=== PATIENT | male | born 1965 | race Caucasian/White ===

== ENCOUNTER → 2017-08-07 | Outpatient (CLI) | payer BC ==
--- NOTE | 2017-08-07 10:52 | XR ---
EXAMINATION TYPE: XR lumbar spine with bend/flex DATE OF EXAM: 08/07/2017 CLINICAL HISTORY: Chronic radicular pain and low back per order. Low back pain for 2 weeks per juan pabloen t. TECHNIQUE: Frontal, lateral, and oblique images of the lumbar spine are obtained. COMPARISON: None FINDINGS: There are 5 lumbar type vertebral bodies identified. The lumbar spine shows grade 1 retro listhesis of L4-L5. There are suspected pars defects L5 level. There is no acute fracture or dislocat ion. There is mild disc space narrowing L4-L5 and L5-S1 levels. Vertebral body heights are maintained . The oblique images appear within normal limits. Facet arthropathy lower lumbar levels is seen. Va scular calcification overlying abdominal aorta is noted. Dynamic flexion and extension views show no increased subluxation, some improved alignment is noted L4-L5 level on extension images. No worsening disc space narrowing is seen. IMPRESSION: As above. Consider CT/MRI follow-up.
== END | disposition home or self-care (01) ==
LOC: RADXRMAIN 09:46
PROVIDERS: ATTEND Internal Medicine Hospice and Palliative Medicine
DX: M48.07 Spinal stenosis, lumbosacral region (principal); M43.16 Spondylolisthesis, lumbar region; M46.96 Unspecified inflammatory spondylopathy, lumbar region
CPT/HCPCS: 72114

== ENCOUNTER → 2018-06-10 | Outpatient (CLI) | payer BC ==
--- NOTE | 2018-06-10 15:12 | US ---
EXAMINATION TYPE: US abdomen limited DATE OF EXAM: 06/10/2018 COMPARISON: NONE CLINICAL HISTORY: 52-year-old male R10.11 Right up quadrant pain. Patient states picking up something heavy at work then later having RUQ pain. TECHNIQUE: Multiple sonographic images of the right upper quadrant are obtained. FINDINGS: EXAM MEASUREMENTS: Liver Length: 17.0 cm Gallbladder Wall: 0.1 cm Right Kidney: 10.7 x 6.0 x 5.2 cm Coppersmith Helper notes:Limited exam due to overlying bowel gas Pancreas: Echogenic in appearance, tail not well visualized due to bowel gas. Liver: Somewhat hypoechoic in appearance. Gallbladder: Mobile echogenic focus seen - 1.0 x 0.9 cm Evidence for sonographic Roman's sign: neg CBD: Obscured by overlying bowel gas Right Kidney: No hydronephrosis IMPRESSION: 1. Hypoechoic appearance to the liver could be on a technical basis given patient limitations. A hypo echoic liver can also be seen in the setting of parenchymal edema such as with hepatitis. Clinically correlate. 2. Cholelithiasis with a 1 cm gallstone. 3. The bile duct is obscured and not assessed.
== END ==
LOC: RADUSWWP 14:24
PROVIDERS: ATTEND Family Medicine
DX: K80.20 Calculus of gallbladder without cholecystitis without obstruction (principal); R93.2 Abnormal findings on diagnostic imaging of liver and biliary tract
CPT/HCPCS: 76705

== ENCOUNTER → 2018-07-18 | Outpatient (CLI) | payer BC ==
--- NOTE | 2018-07-18 15:20 | CT ---
EXAMINATION TYPE: CT abdomen w con DATE OF EXAM: 07/18/2018 COMPARISON: None HISTORY: RUQ pain CT DLP: 1297 mGycm CONTRAST: CT scan of the abdomen is performed with Oral Contrast and with IV Contrast, patient injected with 1 00 mL of Isovue 300. FINDINGS: LUNG BASES-: No visible nodule. No infiltrate. LIVER/GB: Calcified gallstone noted. No space occupying hepatic lesion. Biliary tree is of normal caliber. PANCREAS: No inflammation. No distinct mass. SPLEEN: No splenic enlargement. No lesion seen. ADRENALS: No nodule. No thickening. KIDNEYS/BLADDER: No hydronephrosis. No nephrolithiasis. No distinct renal mass. Urinary bladder g rossly unremarkable. BOWEL: Normal appendix. Normal bowel caliber. No inflammation. LYMPH NODES: No greater than 1cm abdominal or pelvic lymph nodes are appreciated. AORTA: No significant abnormality. OSSEOUS STRUCTURES: No significant abnormality is seen. OTHER: No significant additional abnormality is seen. IMPRESSION: 1. Uncomplicated cholelithiasis.
== END | disposition home or self-care (01) ==
LOC: RADCTMAIN 14:24
PROVIDERS: ATTEND Internal Medicine Hospice and Palliative Medicine
DX: K80.20 Calculus of gallbladder without cholecystitis without obstruction (principal); M62.830 Muscle spasm of back; R93.2 Abnormal findings on diagnostic imaging of liver and biliary tract
CPT/HCPCS: 74160; Q9967

== ENCOUNTER → 2022-05-04 | Outpatient (CLI) | payer BC ==
--- NOTE | 2022-05-04 11:04 | XR ---
EXAMINATION TYPE: XR chest 2V DATE OF EXAM: 05/04/2022 COMPARISON: 03/20/2015 INDICATION: Cough and sinus drainage TECHNIQUE: Frontal and lateral views of the chest are obtained. FINDINGS: The heart size is normal. The pulmonary vasculature is normal. The lungs are clear. IMPRESSION: 1. No acute pulmonary process.
== END | disposition home or self-care (01) ==
LOC: RADXRMAIN 09:55
PROVIDERS: ATTEND Family Medicine
DX: R05.8 Other specified cough (principal)
CPT/HCPCS: 71046

== ENCOUNTER → 2022-12-07 | Outpatient (CLI) | payer BC ==
--- NOTE | 2022-12-07 10:42 | CT ---
EXAMINATION TYPE: CT brain wo con DATE OF EXAM: 12/07/2022 COMPARISON: None HISTORY: abn gait CT DLP: 1150.[address] of the brain was performed. The ventricles, basal cisterns and sulci overlying the cerebral convexities demonstrate mild enlargem ent. There is no evidence for intracranial hemorrhage or sulcal effacement. There is decreased attenuation about the periventricular white matter and deep white matter of both c erebral hemispheres, compatible with chronic small vessel ischemia. Differential diagnosis does inclu de demyelination. No mass effects are seen.No midline shift. Osseous calvarium is intact. If symptoms persist consider MRI. IMPRESSION: 1. Age related atrophic and chronic small vessel ischemic change without acute intracranial process s een at this time.
== END | disposition home or self-care (01) ==
LOC: RADCTMAIN 08:01
PROVIDERS: ATTEND Family Medicine
DX: G31.1 Senile degeneration of brain, not elsewhere classified (principal); I67.82 Cerebral ischemia; R26.9 Unspecified abnormalities of gait and mobility
CPT/HCPCS: 70450

== ENCOUNTER → 2023-07-17 | Outpatient (CLI) | payer BC ==
--- NOTE | 2023-07-17 14:16 | CT ---
EXAMINATION TYPE: CT brain wo con CT DLP: 1071.5 mGycm, Automated exposure control for dose reduction was used. DATE OF EXAM: 07/17/2023 2:08 PM COMPARISON: CT brain 03/18/2023. CLINICAL INDICATION:Male, 58 years old with history of R55 SYNCOPE, syncope, dizziness, weakness TECHNIQUE: Brain: Axial CT images of the brain were obtained with coronal and sagittal reformats created and rev iewed. Contrast used: None. Oral contrast used: None. FINDINGS: Brain: Extra-axial spaces: No abnormal extra-axial fluid collections. Ventricular system: Within normal limits Cerebral parenchyma: Cerebral atrophy, slightly more pronounced on the left. No acute intraparenchyma l hemorrhage or mass effect. The harrington-white junction is well differentiated. Scattered hypoattenuati ng areas are seen within the white matter. Cerebellum: Unremarkable. Mass effect: No evidence of midline shift. Intracranial vasculature: unremarkable Soft tissues: Normal. Calvarium/osseous structures: No depressed skull fracture. Paranasal sinuses and mastoid air cells: Mild scattered paranasal sinus disease. Visualized orbits: Bilateral aphakia IMPRESSION: 1. No acute intracranial process. 2. Nonspecific white matter changes, likely secondary to chronic small vessel ischemic disease.
== END | disposition home or self-care (01) ==
LOC: RADCTMAIN 13:28
PROVIDERS: ATTEND Family Medicine
DX: G93.89 Other specified disorders of brain (principal); S09.90XA Unspecified injury of head, initial encounter; R55 Syncope and collapse; R53.1 Weakness; X58.XXXA Exposure to other specified factors, initial encounter
CPT/HCPCS: 70450

== ENCOUNTER 2023-07-18 10:58 | Inpatient (IN) | payer BC ==
--- NOTE | 2023-07-18 11:48 | ED ---
General Adult HPI - General Stated complaint: dizzy Time Seen by Provider: 07/18/23 11:05 Source: patient Mode of arrival: wheelchair Limitations: no limitations - History of Present Illness Initial comments: Dictation was produced using [employer] dictation software. please excuse any grammatical, word or spelling errors. Chief Complaint: 58-year-old male presents to the ER for presyncope History of Present Illness: Patient is a 58-year-old male he has been worked up by his neurologist for dizziness and presyncope. He had a scheduled tilt table test with Dr. Ovalle today. He arrived for his appointment however became symptomatic and was told that he should come to the emergency department. They did not perform the tilt table test. Patient states that his symptoms seem like they are worse whenever he stands up. He has never seen cardiology for the symptoms. At this point there has not been any clear cause of what is causing patient's dizziness and presyncope. The ROS documented in this emergency department record has been reviewed and confirmed by me. Those systems with pertinent positive or negative responses have been documented in the HPI. All other systems are other negative and/or noncontributory. - Related Data Home Medications Medication Instructions Recorded Confirmed Acetaminophen [Tylenol] 325 mg PO Q4-6H PRN 07/17/23 07/17/23 Albuterol Inhaler [Ventolin Hfa 90 mcg INHALATION Q4H PRN 07/17/23 07/17/23 Inhaler] Escitalopram [Lexapro] 20 mg PO QAM 07/17/23 07/17/23 Lisinopril-Hctz 10-12.5 mg 1 tab PO QAM 07/17/23 07/17/23 [Zestoretic 10-12.5] Meloxicam [Mobic] 15 mg PO QAM 07/17/23 07/17/23 Metoprolol Succinate [Toprol XL] 50 mg PO QAM 07/17/23 07/17/23 Omeprazole 40 mg PO QAM 07/17/23 07/17/23 busPIRone HCL 10 mg PO QAM 07/17/23 07/17/23 Allergies Allergy/AdvReac Type Severity Reaction Status Date / Time bacitracin Allergy Rapid Verified 07/18/23 11:02 [From Neosporin Heart Rate ([id number])] neomycin Allergy Rapid Verified 07/18/23 11:02 [From Neosporin Heart Rate ([id number])] polymyxin B Allergy Rapid Verified 07/18/23 11:02 [From Neosporin Heart Rate ([id number])] Sulfa (Sulfonamide Allergy Unknown Verified 07/18/23 11:02 Antibiotics) venom-honey bee Allergy Unknown Verified 07/18/23 11:02 [bee venom (honey bee)] Review of Systems ROS Statement: Those systems with pertinent positive or pertinent negative responses have been documented in the HPI. ROS Other: All systems not noted in ROS Statement are negative. Past Medical History Past Medical History: Eye Disorder, Hearing Disorder / Deafness, Hypertension, Memory Impairment Additional Past Medical History / Comment(s): wake up gasping for air History of Any Multi-Drug Resistant Organisms: None Reported Past Surgical History: Orthopedic Surgery Additional Past Surgical History / Comment(s): sinus Past Anesthesia/Blood Transfusion Reactions: No Reported Reaction Past Psychological History: Anxiety Smoking Status: Current every day smoker Past Alcohol Use History: None Reported - Past Family History Mother Family Medical History: No Reported History Father Family Medical History: AFIB, AICD/Pacemaker, Coronary Artery Disease (CAD), CVA/TIA General Exam - General Exam Comments Initial Comments: PHYSICAL EXAM: General Impression: Alert and oriented x3, not in acute distress HEENT: Normocephalic atraumatic, extra-ocular movements intact, pupils equal and reactive to light bilaterally, mucous membranes moist. Cardiovascular: Heart regular rate and rhythm Chest: Able to complete full sentences, no retractions, no tachypnea Abdomen: abdomen soft, non-tender, non-distended, no organomegaly Musculoskeletal: Pulses present and equal in all extremities, no peripheral edema Motor: no focal deficits noted Neurological: CN II-XII grossly intact, no focal motor or sensory deficits noted Skin: Intact with no visualized rashes Psych: Normal affect and mood Limitations: no limitations Course Vital Signs 07/18/23 07/18/23 07/18/23 10:59 11:19 12:02 Temperature 97.8 F 97.1 F L Pulse Rate 82 77 97 Pulse Rate [ Flying Ii Instructor ] Respiratory 20 18 14 Rate Blood Pressure 107/73 120/75 112/77 Blood Pressure [Left Arm Sitting] Blood Pressure [Left Arm Standing] Blood Pressure [Left Arm Supine] O2 Sat by Pulse 98 97 97 Oximetry 07/18/23 07/18/23 07/18/23 12:25 12:26 12:27 Temperature Pulse Rate Pulse Rate [ 78 83 92 Flying Ii Instructor ] Respiratory Rate Blood Pressure Blood Pressure 99/78 [Left Arm Sitting] Blood Pressure 108/76 [Left Arm Standing] Blood Pressure 123/94 [Left Arm Supine] O2 Sat by Pulse 95 98 96 Oximetry 07/18/23 13:10 Temperature Pulse Rate 74 Pulse Rate [ Flying Ii Instructor ] Respiratory 16 Rate Blood Pressure 126/79 Blood Pressure [Left Arm Sitting] Blood Pressure [Left Arm Standing] Blood Pressure [Left Arm Supine] O2 Sat by Pulse 96 Oximetry EKG Findings - EKG Comments: EKG Findings:: My EKG interpretation: Ventricular rate 78, normal sinus rhythm,. 150, QRS 100, QTc 513. No OH prolongation, no ST or T-wave changes noted. Overall this EKG positive for prolonged QT Medical Decision Making - Medical Decision Making Was pt. sent in by a medical professional or institution (, PA, REVERBERATORY FURNACE SUPERVISOR, urgent care, hospital, or correction...) When possible be specific @ -No Did you speak to anyone other than the patient for history (EMS, parent, family, police, friend...)? What history was obtained from this source @ - at the bedside as described above Did you review nursing and triage notes (agree or disagree)? Why? @ -I reviewed and agree with nursing and triage notes Were old charts reviewed (outside hosp., previous admission, EMS record, old EKG, old radiological studies, urgent care reports/EKG's, correction records)? Report findings @ -No old charts were reviewed Differential Diagnosis (chest pain, altered mental status, abdominal pain women, abdominal pain men, vaginal bleeding, musculoskeletal, weakness, fever, dyspnea, syncope, headache, dizziness, GI bleed, back pain, seizure, CVA, palpatations, mental health)? @ -Differential Syncope: Valvular disease, hypertrophic cardiomyopathy, pulmonary embolism, tamponade, tachycardia, bradycardia, NV, hypovolemia, hemorrhage, dissection, anemia, intracranial hemorrhage, seizure, hypoglycemia, carbon monoxide poisoning, this is not meant to be an all-inclusive list. EKG interpreted by me (3pts min.). @ -See above X-rays interpreted by me (1pt min.). @ -Chest x-ray is nonacute CT interpreted by me (1pt min.). @ -None done U/S interpreted by me (1pt. min.). @ -None done What testing was considered but not performed or refused? (CT, X-rays, U/S, labs)? Why? @ -None What meds were considered but not given or refused? Why? @ -None Did you discuss the management of the patient with other professionals (professionals i.e. , PA, REVERBERATORY FURNACE SUPERVISOR, lab, RT, psych nurse, social work specialist, bolt header, teacher, chief operating officer, pillowcase cleaner)? Give summary @ -Case discussed with hospitalist for admission Was smoking cessation discussed for >3mins.? @ -No Was critical care preformed (if so, how long)? @ -No Were there social determinants of health that impacted care today? How? (Homelessness, low income, unemployed, alcoholism, drug addiction, transportation, low edu. Level, literacy, decrease access to med. care, group home, rehab)? @ -No Was there de-escalation of care discussed even if they declined (Discuss DNR or withdrawal of care, Hospice)? DNR status @ -No What co-morbidities impacted this encounter? (DM, HTN, Smoking, COPD, CAD, Cancer, CVA, ARF, Chemo, Hep., AIDS, mental health diagnosis, sleep apnea, morbid obesity)? @ -None Was patient admitted / discharged? Hospital course, mention meds given and route, prescriptions, significant lab abnormalities, going to OR and other pertinent info. @ -58-year-old male sent in from tilt table office for dizziness. Patient describes symptoms consistent with presyncope. Vital signs upon arrival are within acceptable limits. Orthostatic vital signs do show some positive findings. Laboratory evaluation obtained. CBC is unremarkable. Metabolic p hai shows sodium 123. Acute kidney injury with a creatinine of 2.28 and BUN of 52. Troponin 0.043. Patient has elevated troponin however does not have any ACS type symptoms. There is concern that perhaps maybe his presyncope or syncope is cardiac related. Patient may have a cardiology consult. Undiagnosed new problem with uncertain prognosis? @ -No Drug Therapy requiring intensive monitoring for toxicity (Heparin, Nitro, Insulin, Cardizem)? @ -No Were any procedures done? @ -No Diagnosis/symptom? Acute, or Chronic, or Acute on Chronic? Uncomplicated (without systemic symptoms) or Complicated (systemic symptoms)? @ -Presyncope, hyponatremia Side effects of treatment? @ -No Exacerbation, Progression, or Severe Exacerbation? @ -No Poses a threat to life or bodily function? How? (Chest pain, USA, NV, pneumonia, PE, COPD, DKA, ARF, appy, cholecystitis, CVA, Diverticulitis, Homicidal, Suicidal, threat to staff... and all critical care pts) @ -yes - Lab Data Result diagrams: 07/18/23 11:59 07/18/23 11:59 Lab Results 07/18/23 07/18/23 07/18/23 Range/Units 11:59 11:59 11:59 WBC 5.8 (3.8-10.6) k/uL RBC 3.85 L (4.30-5.90) m/uL Hgb 14.6 (13.0-17.5) gm/dL Hct 42.5 (39.0-53.0) % MCV 110.2 H (80.0-100.0) fL MCH 37.9 H (25.0-35.0) pg MCHC 34.4 (31.0-37.0) g/dL RDW 13.2 (11.5-15.5) % Plt Count 202 (150-450) k/uL MPV 8.2 Neutrophils % 75 % Lymphocytes % 9 % Monocytes % 12 % Eosinophils % 2 % Basophils % 0 % Neutrophils # 4.4 (1.3-7.7) k/uL Lymphocytes # 0.5 L (1.0-4.8) k/uL Monocytes # 0.7 (0-1.0) k/uL Eosinophils # 0.1 (0-0.7) k/uL Basophils # 0.0 (0-0.2) k/uL Manual Slide Review Performed Macrocytosis Marked A Stomatocytes Present PT 10.2 (10.0-12.5) sec INR 0.9 (<1.2) APTT 23.3 (22.0-30.0) sec Sodium 123 L (137-145) mmol/L Potassium 3.3 L (3.5-5.1) mmol/L Chloride 79 L (98-107) mmol/L Carbon Dioxide 32 H (22-30) mmol/L Anion Gap 12 mmol/L BUN 52 H (9-20) mg/dL Creatinine 2.28 H (0.66-1.25) mg/dL Est GFR (CKD-EPI)AfAm 36 (>60 ml/min/1.73 sqM) Est GFR (CKD-EPI)NonAf 31 (>60 ml/min/1.73 sqM) Glucose 193 H (74-99) mg/dL Plasma Lactic Acid Chuy (0.7-2.0) mmol/L Calcium 9.0 (8.4-10.2) mg/dL Magnesium 2.1 (1.6-2.3) mg/dL Total Bilirubin 1.2 (0.2-1.3) mg/dL AST 71 H (17-59) U/L ALT 46 (4-49) U/L Alkaline Phosphatase 101 (38-126) U/L Troponin I (0.000-0.034) ng/mL Total Protein 6.3 (6.3-8.2) g/dL Albumin 3.6 (3.5-5.0) g/dL 07/18/23 07/18/23 Range/Units 11:59 11:59 WBC (3.8-10.6) k/uL RBC (4.30-5.90) m/uL Hgb (13.0-17.5) gm/dL Hct (39.0-53.0) % MCV (80.0-100.0) fL MCH (25.0-35.0) pg MCHC (31.0-37.0) g/dL RDW (11.5-15.5) % Plt Count (150-450) k/uL MPV Neutrophils % % Lymphocytes % % Monocytes % % Eosinophils % % Basophils % % Neutrophils # (1.3-7.7) k/uL Lymphocytes # (1.0-4.8) k/uL Monocytes # (0-1.0) k/uL Eosinophils # (0-0.7) k/uL Basophils # (0-0.2) k/uL Manual Slide Review Macrocytosis Stomatocytes PT (10.0-12.5) sec INR (<1.2) APTT (22.0-30.0) sec Sodium (137-145) mmol/L Potassium (3.5-5.1) mmol/L Chloride (98-107) mmol/L Carbon Dioxide (22-30) mmol/L Anion Gap mmol/L BUN (9-20) mg/dL Creatinine (0.66-1.25) mg/dL Est GFR (CKD-EPI)AfAm (>60 ml/min/1.73 sqM) Est GFR (CKD-EPI)NonAf (>60 ml/min/1.73 sqM) Glucose (74-99) mg/dL Plasma Lactic Acid Chuy 1.2 (0.7-2.0) mmol/L Calcium (8.4-10.2) mg/dL Magnesium (1.6-2.3) mg/dL Total Bilirubin (0.2-1.3) mg/dL AST (17-59) U/L ALT (4-49) U/L Alkaline Phosphatase (38-126) U/L Troponin I 0.043 H* (0.000-0.034) ng/mL Total Protein (6.3-8.2) g/dL Albumin (3.5-5.0) g/dL Disposition Clinical Impression: Pre-syncope Disposition: ADMITTED IP TO THIS HOSP Condition: Fair Referrals: Fritz Mace DO [Primary Care Provider] - 1-2 days Decision Time: 13:50
[2023-07-18 12:14] LABS: Basophils % (A) 0 %; Eosinophils # (A) 0.1 k/uL (0-0.7); Eosinophils % (A) 2 %; HCT 42.5 % (39.0-53.0); HGB 14.6 gm/dL (13.0-17.5); Lymphocytes # (A) 0.5 k/uL (1.0-4.8); Lymphocytes % (A) 9 %; MCH 37.9 pg (25.0-35.0); MCHC 34.4 g/dL (31.0-37.0); MCV 110.2 fL (80.0-100.0); Macrocytosis Marked; Mean Platelet Volume 8.2; Monocytes # (A) 0.7 k/uL (0-1.0); Monocytes % (A) 12 %; Neutrophils # (A) 4.4 k/uL (1.3-7.7); Neutrophils % (A) 75 %; Platelet Count 202 k/uL (150-450); RBC 3.85 m/uL (4.30-5.90); RDW 13.2 % (11.5-15.5); WBC 5.8 k/uL (3.8-10.6)
[2023-07-18 12:22] LABS: INR 0.9 (<1.2); Partial Thromboplastin Time 23.3 sec (22.0-30.0); Prothrombin Time 10.2 sec (10.0-12.5)
[2023-07-18 12:36] LABS: ALT 46 U/L (4-49); AST 71 U/L (17-59); African American GFR (CKD) 36 (>60 ml/min/1.73 sqM); Albumin 3.6 g/dL (3.5-5.0); Alkaline Phosphatase 101 U/L (38-126); Anion Gap 12 mmol/L; Blood Urea Nitrogen 52 mg/dL (9-20); Carbon Dioxide 32 mmol/L (22-30); Chloride 79 mmol/L (98-107); Glucose 193 mg/dL (74-99); Magnesium 2.1 mg/dL (1.6-2.3); Non-African American GFR(CKD) 31 (>60 ml/min/1.73 sqM); Potassium 3.3 mmol/L (3.5-5.1); Sodium 123 mmol/L (137-145); Total Bilirubin 1.2 mg/dL (0.2-1.3); Total Protein 6.3 g/dL (6.3-8.2)
--- NOTE | 2023-07-18 12:55 | XR ---
EXAMINATION TYPE: XR chest 1V portable DATE OF EXAM: 07/18/2023 12:28 PM CLINICAL INDICATION:Male, 58 years old with history of presyncope; COMPARISON: Chest radiographs from 05/04/2022 TECHNIQUE: XR chest 1V portable Frontal view of the chest. FINDINGS: Lungs/Pleura: There is no evidence of pleural effusion, focal consolidation, or pneumothorax. Pulmonary vascularity: Unremarkable. Heart/mediastinum: Cardiomediastinal silhouette is unremarkable. Musculoskeletal: No acute osseous pathology. IMPRESSION: No acute cardiopulmonary disease/process.
[2023-07-18 13:04] LABS: Stomatocytes Present
[2023-07-18] MEDS ORDERED: NALOXONE 0.4 MG/ML 1 ML VIAL IV PRN (13:43)
[2023-07-18] MEDS: SODIUM CHLORIDE 0.9% 1,000 ML IV STA (14:59)
[2023-07-18] MEDS: SODIUM CHLORIDE 0.9% 1,000 ML IV SCH (14:59)
[2023-07-18] MEDS ORDERED: LORazepam 2 MG/ML INJ IV PRN (15:01)
--- NOTE | 2023-07-18 15:01 | P.HPIM ---
History of Present Illness H&P Date: 07/18/23 History of Presenting Illness: Patient is a very pleasant 58-year-old male with a past medical history of hypertension, COPD with continued nicotine dependence, and daily alcohol use drinking 1 pint of alcohol daily every day for at least the last 10 months. He presented to the emergency department secondary to severe dizziness. He was sent by Dr. Ovalle with [facility] after becoming severely dizzy during tilt table testing. He underwent full evaluation upon arrival to our facility. Vital signs upon arrival show blood pressure 107/73, heart rate 82, respiratory rate 20, temp 97.8 F, and SpO2 of 98% on room air. EKG was completed showing normal sinus rhythm at 77 bpm with prominent Q waves in leads II, aVF, V5 and V6. Which appears to be unchanged when compared to EKG completed 03/20/2015 upon personal review, comparison, and interpretation.. Chest x-ray completed negative for acute cardiopulmonary process. Labs completed and reviewed. CBC showing macrocytosis with MCV of 110.2 and MCH of 37.9. BMP showing acute hyponatremia with sodium of 123, hypokalemia with potassium of 3.3, and high anion gap metabolic alkalosis with hypochloremia with chloride of 79, hypercarbia with bicarb of 32 and anion gap of 12 as well as acute kidney injury with BUN of 52, creatinine 2.28, and GFR of 31. Blood glucose 193. Lactic acid was 1.2. Magnesium 2.1. Liver profile showing elevated AST of 71 otherwise normal findings. Troponin was elevated at 0.043. Patient is being admitted under our services with consultation to cardiology and nephrology. Patient continues to report persistent dizziness. He is currently lying supine and reports dizziness at rest and with any movement, dizziness with eyes closed or open. Patient states the room is just constantly spinning, and his hands are slightly tremulous and patient is holding onto stretcher. He denies having any changes in vision, hearing, tinnitus, headache, chest pain, palpitations, shortness of breath, nausea or vomiting, or experiencing any numbness/tingling/w eakness in his extremities. Review of systems: Pertinent positives and negatives as discussed in HPI, a complete review of systems was performed and all other systems are negative. Physical exam: Vital signs reviewed and stable. General: Nontoxic, no distress and appears stated age. Derm: Skin warm and dry, normal coloration for ethnicity. Head: Atraumatic, normocephalic and symmetric. Eyes: EOMs intact, no lid lag, and anicteric sclera. Pupils PERRLA Mouth: no lip lesions, mucus membranes moist Cardiovascular: regular rate and rhythm with normal S1S2, no murmur, positive posterior tibial pulses bilaterally, and cap refill < 2 seconds. Lungs: Respirations even, regular, and unlabored on room air. Lungs CTA bilaterally, no rhonchi, no rales, no wheezing, and no accessory muscle usage. Abdominal: soft, nontender to palpation, no guarding, no appreciable organomegaly Ext: ROM intact. No gross muscle atrophy, no edema, no contractures Neuro: Speech clear, face symmetrical and CN II-XII grossly intact with no noted focal neuro deficits. GCS 15. Slight resting tremors noted to bilateral hands. Psych: Alert and oriented to person, place, time, and situation. Appropriate and pleasant affect. Assessment and Plan of Care: Intractable dizziness Elevated troponin -Cardiology consulted, appreciate recommendations -Telemetry monitoring -Trend troponins -Cardiac diet -Order placed for aspirin 324 mg p.o. x 1 dose followed by 81 mg daily. -Patient to continue daily medication regimen with metoprolol succinate 50 mg daily. Lisinopril/hydrochlorothiazide held secondary to hyponatremia and ZAID. -Echocardiogram to be completed -Fall precautions in place. Hyponatremia High anion gap metabolic alkalosis Acute kidney injury -Hyponatremia likely due to dehydration with daily alcohol abuse in addition to current medications including thiazide diuretic and Lexapro. -Order placed for hyponatremia workup including TSH with free T4, serum osmolality, urine osmolality, random urine sodium, and uric acid. -Nephrology consulted. -Order placed for bladder scans to monitor for postvoid residual/retention and if greater than 400 cc nursing staff directed to place Fraser catheter. -Order placed for urinalysis -Patient to remain on telemetry monitoring with fall precautions and seizure precautions in place. -We will continue with gentle IV fluid hydration with 0.9% normal saline at 75 cc/h. -If no improvement in renal function with gentle IV fluid hydration, will need renal ultrasound. -Lisinopril/hydrochlorothiazide and Lexapro held. Alcohol withdraw in active alcoholic -Order placed for monitoring of CIWA scores and patient to be medicated with Ativan 0.5 mg every 4 hours as needed for CIWA score of 4-5, Ativan 1 mg every 4 hours for CIWA score of 6-7, Ativan 2 mg every 3 hours CIWA score of 8-9, and Ativan 2 mg every 2 hours forr CIWA score of 10 or greater. -Continuous gentle IV fluid hydration. -Thiamine 100 mg daily -Multivitamin daily -Folate 1 mg daily -Seizure, fall, and aspiration precautions in place. -Continued close monitoring of electrolytes and replace as needed. Hypokalemia Potassium was 3.3 order for K-Dur 40 mEq p.o. x 1 dose. We will continue to monitor with repeat morning labs and replace abnormal electrolyte values as indicated based upon these findings. Data and imaging reviewed: As stated above in HPI The patient is admitted with an anticipated greater than 2 midnight stay for evaluation of intractable dizziness, hyponatremia, acute kidney injury, and alcohol withdrawal CODE STATUS: Full code DVT prophylaxis: Heparin Anticipated discharge date: Clinical course to determine Anticipated discharge place: Clinical course to determine Patient was seen independently by Nurse Practitioner. This document was prepared using [employer] dictation software. Please allow for errors in bag shaker while rare they do occur. Rafi Arguello NP rendered care for this patient independently, reviewed the findings and plan as documented in the note above. I did not physically speak with or examine the patient on this date. Hyperglycemia - SSI, check A1C Past Medical History Past Medical History: Eye Disorder, Hearing Disorder / Deafness, Hypertension, Memory Impairment Additional Past Medical History / Comment(s): wake up gasping for air History of Any Multi-Drug Resistant Organisms: None Reported Past Surgical History: Orthopedic Surgery Additional Past Surgical History / Comment(s): sinus Past Anesthesia/Blood Transfusion Reactions: No Reported Reaction Past Psychological History: Anxiety Smoking Status: Current every day smoker Past Alcohol Use History: None Reported - Past Family History Mother Family Medical History: No Reported History Father Family Medical History: AFIB, AICD/Pacemaker, Coronary Artery Disease (CAD), CVA/TIA Medications and Allergies Home Medications Medication Instructions Recorded Confirmed Type Albuterol Inhaler [Ventolin Hfa 2 puff INHALATION RT-Q4H PRN 07/17/23 07/18/23 History Inhaler] Escitalopram [Lexapro] 20 mg PO DAILY 07/17/23 07/18/23 History Lisinopril-Hctz 10-12.5 mg 1 tab PO DAILY 07/17/23 07/18/23 History [Zestoretic 10-12.5] Meloxicam [Mobic] 15 mg PO DAILY 07/17/23 07/18/23 History Metoprolol Succinate [Toprol XL] 50 mg PO DAILY 07/17/23 07/18/23 History Omeprazole 40 mg PO DAILY 07/17/23 07/18/23 History busPIRone HCL 10 mg PO DAILY 07/17/23 07/18/23 History LORazepam [Ativan] 1 mg PO DIRECTED PRN 07/18/23 07/18/23 History traZODone HCL [Desyrel] 200 mg PO HS PRN 07/18/23 07/18/23 History Allergies Allergy/AdvReac Type Severity Reaction Status Date / Time bacitracin Allergy Rapid Verified 07/18/23 14:15 [From Neosporin Heart Rate ([id number])] neomycin Allergy Rapid Verified 07/18/23 14:15 [From Neosporin Heart Rate ([id number])] polymyxin B Allergy Rapid Verified 07/18/23 14:15 [From Neosporin Heart Rate ([id number])] Sulfa (Sulfonamide Allergy Anaphylaxis, Verified 07/18/23 14:15 Antibiotics) racing heart venom-honey bee Allergy Unknown Verified 07/18/23 14:15 [bee venom (honey bee)] Physical Exam Osteopathic Statement: *. No significant issues noted on an osteopathic structural exam other than those noted in the History and Physical/Consult. Vitals: Vital Signs Temp Pulse Pulse Resp BP BP BP 07/18/23 14:59 98.2 F 73 22 120/86 07/18/23 13:10 74 16 126/79 07/18/23 12:27 92 108/76 07/18/23 12:26 83 99/78 07/18/23 12:25 78 07/18/23 12:02 97 14 112/77 07/18/23 11:19 97.1 F L 77 18 120/75 07/18/23 10:59 97.8 F 82 20 107/73 BP Pulse Ox 07/18/23 14:59 95 07/18/23 13:10 96 07/18/23 12:27 96 07/18/23 12:26 98 07/18/23 12:25 123/94 95 07/18/23 12:02 97 07/18/23 11:19 97 07/18/23 10:59 98 Intake and Output 07/18/23 07/18/23 07/18/23 06:59 14:59 22:59 Other: Weight 107.955 kg Results CBC & Chem 7: 07/18/23 11:59 07/18/23 18:18 Labs: Abnormal Lab Results - Last 24 Hours (Table) 07/18/23 07/18/23 07/18/23 Range/Units 11:59 11:59 11:59 RBC 3.85 L (4.30-5.90) m/uL MCV 110.2 H (80.0-100.0) fL MCH 37.9 H (25.0-35.0) pg Lymphocytes # 0.5 L (1.0-4.8) k/uL Macrocytosis Marked A Sodium 123 L (137-145) mmol/L Potassium 3.3 L (3.5-5.1) mmol/L Chloride 79 L (98-107) mmol/L Carbon Dioxide 32 H (22-30) mmol/L BUN 52 H (9-20) mg/dL Creatinine 2.28 H (0.66-1.25) mg/dL Glucose 193 H (74-99) mg/dL AST 71 H (17-59) U/L Troponin I 0.043 H* (0.000-0.034) ng/mL
[2023-07-18] MEDS: HEPARIN SODIUM,PORCINE 5,000 UNIT/ML 1 ML VIAL SQ SCH (15:43)
[2023-07-18] MEDS: POTASSIUM CHLORIDE ER 20 MEQ TAB.ER PO STA ×2 (15:43→21:44)
[2023-07-18] MEDS: ASPIRIN 81 MG PO STA (16:43)
[2023-07-18] MEDS: THIAMINE 100 MG/ML 2 ML VIAL IM STA (16:43)
[2023-07-18] MEDS: NICOTINE 21MG/24HR PATCH TRANSDERM SCH (18:46)
[2023-07-18 19:13] LABS: African American GFR (CKD) 35 (>60 ml/min/1.73 sqM); Anion Gap 10 mmol/L; Blood Urea Nitrogen 50 mg/dL (9-20); Calcium 8.7 mg/dL (8.4-10.2); Carbon Dioxide 30 mmol/L (22-30); Chloride 81 mmol/L (98-107); Glucose 315 mg/dL (74-99); Non-African American GFR(CKD) 30 (>60 ml/min/1.73 sqM); Potassium 3.3 mmol/L (3.5-5.1); Sodium 121 mmol/L (137-145)
[2023-07-18] MEDS ORDERED: DEXTROSE 50% SYRINGE 50 ML IVP PRN ×2 (19:25)
[2023-07-18 21:31] LABS: Glucose,Whole Blood 232 mg/dL (70-110)
[2023-07-18] MEDS: INSULIN ASPART (NovoLOG) 100 UNIT/ML VIAL SQ SCH (21:44)
[2023-07-19 00:09] LABS: Amorphous Sediment,Urine Rare /hpf; Appearance,Urine Clear (Clear); Bacteria,Urine Rare /hpf; Bilirubin,Urine Negative (Negative); Blood,Urine Trace (Negative); Color,Urine Yellow; Glucose,Urine (UA) 3+ (Negative); Hyaline Casts,Urine 57 /lpf (0-2); Ketones,Urine Trace (Negative); Leukocyte Esterase,Urine Negative (Negative); Mucus,Urine Rare /hpf; Nitrite,Urine Negative (Negative); PH, Urine 5.5 (5.0-8.0); Protein,Urine 1+ (Negative); RBC,Urine <1 /hpf (0-5); Specific Gravity,Urine 1.017 (1.001-1.035); Squamous Epithelial Cell,Urine <1 /hpf (0-4); Urobilinogen,Urine <2.0 mg/dL (<2.0); WBC,Urine 1 /hpf (0-5)
[2023-07-19 02:55] LABS: African American GFR (CKD) 41 (>60 ml/min/1.73 sqM); Anion Gap 8 mmol/L; Blood Urea Nitrogen 50 mg/dL (9-20); Calcium 8.8 mg/dL (8.4-10.2); Carbon Dioxide 30 mmol/L (22-30); Chloride 86 mmol/L (98-107); Glucose 149 mg/dL (74-99); Non-African American GFR(CKD) 35 (>60 ml/min/1.73 sqM); Sodium 124 mmol/L (137-145)
[2023-07-19 06:06] LABS: Glucose,Whole Blood 193 mg/dL (70-110)
[2023-07-19] MEDS: PANTOPRAZOLE 40 MG TABLET PO SCH (06:43)
[2023-07-19] MEDS: METOPROLOL SUCCINATE (ER) 50 MG TAB.ER.24H PO SCH (08:29)
[2023-07-19] MEDS: MULTIVITAMINS, THERA 1 EACH TAB PO SCH (08:29)
[2023-07-19] MEDS: ASPIRIN 81 MG PO SCH (08:29)
[2023-07-19] MEDS: THIAMINE 100 MG TAB PO SCH (08:29)
[2023-07-19] MEDS: FOLIC ACID 1 MG TAB PO SCH (08:30)
[2023-07-19] MEDS: LORazepam 0.5 MG TAB PO PRN (08:40)
[2023-07-19] MEDS ORDERED: ESCITALOPRAM 20 MG TAB PO SCH (09:00)
[2023-07-19] MEDS ORDERED: ACETAMINOPHEN TAB 325 MG TAB PO PRN (09:20)
--- NOTE | 2023-07-19 09:53 | P.PN ---
Subjective Progress Note Date: 07/19/23 History of Presenting Illness: Patient is a very pleasant 58-year-old male with a past medical history of hypertension, COPD with continued nicotine dependence, and daily alcohol use drinking 1 pint of alcohol daily every day for at least the last 10 months. He presented to the emergency department secondary to severe dizziness. He was sent by Dr. Ovalle with [facility] after becoming severely dizzy during tilt table testing. He underwent full evaluation upon arrival to our facility. Vital signs upon arrival show blood pressure 107/73, heart rate 82, respiratory rate 20, temp 97.8 F, and SpO2 of 98% on room air. EKG was completed showing normal sinus rhythm at 77 bpm with prominent Q waves in leads II, aVF, V5 and V6. Which appears to be unchanged when compared to EKG completed 03/20/2015 upon personal review, comparison, and interpretation.. Chest x-ray completed negative for acute cardiopulmonary process. Labs completed and reviewed. CBC showing macrocytosis with MCV of 110.2 and MCH of 37.9. BMP showing acute hyponatremia with sodium of 123, hypokalemia with potassium of 3.3, and high anion gap metabolic alkalosis with hypochloremia with chloride of 79, hypercarbia with bicarb of 32 and anion gap of 12 as well as acute kidney injury with BUN of 52, creatinine 2.28, and GFR of 31. Blood glucose 193. Lactic acid was 1.2. Magnesium 2.1. Liver profile showing elevated AST of 71 otherwise normal findings. Troponin was elevated at 0.043. Patient is being admitted under our services with consultation to cardiology and nephrology. Physical exam: Patient was seen and fully evaluated at bedside this morning. Reports dizziness remains intermittently and with any movement but has shown some improvement since arrival yesterday. Patient also reports feeling quite shaky/tremulous from alcohol withdrawal. He continues to deny having a headache, changes in vision or hearing, chest pain or palpitations, or experiencing any numbness/tingling/weakness in his extremities. Patient does report mild lower back pain secondary to uncomfortable bed. Orders were placed for pain management including Tylenol 650 mg every 6 hours as needed for mild pain and Maiden 5/325 mg tablets every 4 hours as needed for moderate to severe pain. Vital signs reviewed and stable. General: Nontoxic, no distress and appears stated age. Derm: Skin warm and dry, normal coloration for ethnicity. Head: Atraumatic, normocephalic and symmetric. Eyes: EOMs intact, no lid lag, and anicteric sclera. Pupils PERRLA Mouth: no lip lesions, mucus membranes moist Cardiovascular: regular rate and rhythm with normal S1S2, no murmur, positive posterior tibial pulses bilaterally, and cap refill < 2 seconds. Lungs: Respirations even, regular, and unlabored on room air. Lungs CTA bilaterally, no rhonchi, no rales, no wheezing, and no accessory muscle usage. Abdominal: soft, nontender to palpation, no guarding, no appreciable organomegaly Ext: ROM intact. No gross muscle atrophy, no edema, no contractures Neuro: Speech clear, face symmetrical and CN II-XII grossly intact with no noted focal neuro deficits. GCS 15. Slight resting tremors noted to bilateral hands. Psych: Alert and oriented to person, place, time, and situation. Appropriate and pleasant affect. Assessment and Plan of Care: Intractable dizziness Elevated troponin -Cardiology consulted, appreciate recommendations -Telemetry monitoring -Troponins trended overnight resulting at 0.043, 0.033, and 0.035. -Cardiac diet -Continue 81 mg daily. -Patient to continue daily medication regimen with metoprolol succinate 50 mg daily. Lisinopril/hydrochlorothiazide held secondary to hyponatremia and ZAID. -Echocardiogram to be completed -Fall precautions in place. Hyponatremia, slowly improving with gentle IV fluid hydration High anion gap metabolic alkalosis, improving with IV fluid hydration Acute kidney injury, slowly improving with IV fluid hydration -Hyponatremia likely due to dehydration with daily alcohol abuse in addition to current medications including thiazide diuretic and Lexapro. -TSH normal findings at 2.440.serum osmolality was normal at 280. Urine osmolality, random urine sodium, and uric acid levels are still pending. -Nephrology following and discussed plan of care with Dr. Lombardi. -Strict I's and O's -Urinalysis positive for protein, glucose, ketones, and blood but negative for infection showing 1 WBC and less than 1 RBC.. Patient has had no episodes of noted urinary retention, and continues to report urinating without difficulties. -Patient to remain on telemetry monitoring with fall precautions and seizure precautions in place. -We will continue with gentle IV fluid hydration with 0.9% normal saline at 75 cc/h. -If no improvement in renal function with gentle IV fluid hydration, will need renal ultrasound. -Lisinopril/hydrochlorothiazide and Lexapro held. Alcohol withdraw in active alcoholic -Continue monitoring of CIWA scores and patient to be medicated with Ativan 0.5 mg every 4 hours as needed for CIWA score of 4-5, Ativan 1 mg every 4 hours for CIWA score of 6-7, Ativan 2 mg every 3 hours CIWA score of 8-9, and Ativan 2 mg every 2 hours forr CIWA score of 10 or greater. Current CIWA 4. -Continuous gentle IV fluid hydration. -Thiamine 100 mg daily -Multivitamin daily -Folate 1 mg daily -Continue seizure, fall, and aspiration precautions. -Continued close monitoring of electrolytes and replace as needed. Hypokalemia Most recent potassium was 3.0 at 2 AM and patient received an additional dose of K-Dur 40 mEq. Awaiting 6 AM labs to result. We will continue to monitor w ith repeat morning labs and replace abnormal electrolyte values as indicated based upon these findings. Nicotine dependence Recommend smoking cessation and continue with nicotine patch 21 mg daily. Data and imaging reviewed: Vital signs reviewed. Blood pressure 100/60, heart rate 92, respiratory rate 17, temp 98.1 F, and SpO2 of 93% on room air. Morning labs from 6 AM still pending. Sodium was monitored throughout the night with gentle IV fluid hydration and sodium slowly improving and currently 124 at 2 AM and renal function improving from creatinine of 2.31-2.03. Serum osmolality was 280. Troponins trended overnight resulting at 0.043, 0.033, and 0.035. TSH was normal findings at 2.440. Urinalysis positive for protein, glucose, ketones, and blood but negative for infection showing 1 WBC and less than 1 RBC.. CODE STATUS: Full code DVT prophylaxis: Heparin Anticipated discharge date: Clinical course to determine Anticipated discharge place: Clinical course to determine Patient was seen independently by Nurse Practitioner. This document was prepared using [employer] dictation software. Please allow for errors in [employer] while rare they do occur. Rafi Arguello NP rendered care for this patient independently, reviewed the findings and plan as documented in the note above. I did not physically speak with or examine the patient on this date. Objective - Vital Signs Vital signs: Vital Signs Temp 97.6 F 07/19/23 05:03 Pulse 94 07/19/23 05:03 Resp 20 07/19/23 05:03 BP 157/108 07/19/23 05:03 Pulse Ox 96 07/19/23 05:03 FiO2 Intake & Output 07/18/23 07/19/23 07/19/23 18:59 06:59 18:59 Intake Total 110 Output Total 200 Balance 110 -200 Weight 107.955 kg Intake: Oral 110 Output: Urine 200 Other: Voiding Method Urinal Toilet Urinal # Voids 1 # Bowel Movements 1 2 - Labs CBC & Chem 7: 07/18/23 11:59 07/19/23 11:33 Labs: Abnormal Lab Results - Last 24 Hours (Table) 07/18/23 07/18/23 07/18/23 Range/Units 11:59 11:59 11:59 RBC 3.85 L (4.30-5.90) m/uL MCV 110.2 H (80.0-100.0) fL MCH 37.9 H (25.0-35.0) pg Lymphocytes # 0.5 L (1.0-4.8) k/uL Macrocytosis Marked A Sodium 123 L (137-145) mmol/L Potassium 3.3 L (3.5-5.1) mmol/L Chloride 79 L (98-107) mmol/L Carbon Dioxide 32 H (22-30) mmol/L BUN 52 H (9-20) mg/dL Creatinine 2.28 H (0.66-1.25) mg/dL Glucose 193 H (74-99) mg/dL POC Glucose (mg/dL) (70-110) mg/dL AST 71 H (17-59) U/L Troponin I 0.043 H* (0.000-0.034) ng/mL Urine Protein (Negative) Urine Glucose (UA) (Negative) Urine Ketones (Negative) Urine Blood (Negative) Amorphous Sediment (None) /hpf Urine Bacteria (None) /hpf Hyaline Casts (0-2) /lpf Urine Mucus (None) /hpf 07/18/23 07/18/23 07/18/23 Range/Units 18:18 18:18 21:29 RBC (4.30-5.90) m/uL MCV (80.0-100.0) fL MCH (25.0-35.0) pg Lymphocytes # (1.0-4.8) k/uL Macrocytosis Sodium 121 L (137-145) mmol/L Potassium 3.3 L (3.5-5.1) mmol/L Chloride 81 L (98-107) mmol/L Carbon Dioxide (22-30) mmol/L BUN 50 H (9-20) mg/dL Creatinine 2.31 H (0.66-1.25) mg/dL Glucose 315 H (74-99) mg/dL POC Glucose (mg/dL) 232 H (70-110) mg/dL AST (17-59) U/L Troponin I 0.035 H* (0.000-0.034) ng/mL Urine Protein (Negative) Urine Glucose (UA) (Negative) Urine Ketones (Negative) Urine Blood (Negative) Amorphous Sediment (None) /hpf Urine Bacteria (None) /hpf Hyaline Casts (0-2) /lpf Urine Mucus (None) /hpf 07/18/23 07/19/23 07/19/23 Range/Units 23:39 02:05 06:05 RBC (4.30-5.90) m/uL MCV (80.0-100.0) fL MCH (25.0-35.0) pg Lymphocytes # (1.0-4.8) k/uL Macrocytosis Sodium 124 L (137-145) mmol/L Potassium 3.0 L (3.5-5.1) mmol/L Chloride 86 L (98-107) mmol/L Carbon Dioxide (22-30) mmol/L BUN 50 H (9-20) mg/dL Creatinine 2.03 H (0.66-1.25) mg/dL Glucose 149 H (74-99) mg/dL POC Glucose (mg/dL) 193 H (70-110) mg/dL AST (17-59) U/L Troponin I (0.000-0.034) ng/mL Urine Protein 1+ H (Negative) Urine Glucose (UA) 3+ H (Negative) Urine Ketones Trace H (Negative) Urine Blood Trace H (Negative) Amorphous Sediment Rare H (None) /hpf Urine Bacteria Rare H (None) /hpf Hyaline Casts 57 H (0-2) /lpf Urine Mucus Rare H (None) /hpf
--- NOTE | 2023-07-19 10:34 | P.NPCON ---
History of Present Illness - Reason for Consult hyponatremia - History of Present Illness Patient is a 58-year-old male with history of hypertension, COPD, EtOH abuse with history of consumption of 1 pint of alcohol every day. Patient is admitted to the hospital with complaints of severe dizziness. He was admitted from therapy teacher's office due to's severe dizziness during tilt table testing. Blood pressure was 107/73 on initial presentation. Labs showed sodium of 123 with potassium of 3.3. Alcohol level not checked patient denies any previous history of hyponatremia. Currently maintained on normal saline and sodium has improved to 124 today. Urine osmolality and urine sodium is pending. Patient reported having diarrhea for about 1-2 days prior to admission. No nausea or vomiting Review of Systems As per HPI Past Medical History Past Medical History: Eye Disorder, Hearing Disorder / Deafness, Hypertension, Memory Impairment Additional Past Medical History / Comment(s): wake up gasping for air History of Any Multi-Drug Resistant Organisms: None Reported Past Surgical History: Orthopedic Surgery Additional Past Surgical History / Comment(s): sinus Past Anesthesia/Blood Transfusion Reactions: No Reported Reaction Past Psychological History: Anxiety Smoking Status: Current every day smoker Past Alcohol Use History: None Reported - Past Family History Mother Family Medical History: No Reported History Father Family Medical History: AFIB, AICD/Pacemaker, Coronary Artery Disease (CAD), CVA/TIA Medications and Allergies Home Medications Medication Instructions Recorded Confirmed Type Albuterol Inhaler [Ventolin Hfa 2 puff INHALATION RT-Q4H PRN 07/17/23 07/18/23 History Inhaler] Escitalopram [Lexapro] 20 mg PO DAILY 07/17/23 07/18/23 History Lisinopril-Hctz 10-12.5 mg 1 tab PO DAILY 07/17/23 07/18/23 History [Zestoretic 10-12.5] Meloxicam [Mobic] 15 mg PO DAILY 07/17/23 07/18/23 History Metoprolol Succinate [Toprol XL] 50 mg PO DAILY 07/17/23 07/18/23 History Omeprazole 40 mg PO DAILY 07/17/23 07/18/23 History busPIRone HCL 10 mg PO DAILY 07/17/23 07/18/23 History LORazepam [Ativan] 1 mg PO DIRECTED PRN 07/18/23 07/18/23 History traZODone HCL [Desyrel] 200 mg PO HS PRN 07/18/23 07/18/23 History Allergies Allergy/AdvReac Type Severity Reaction Status Date / Time bacitracin Allergy Rapid Verified 07/18/23 14:15 [From Neosporin Heart Rate ([id number])] neomycin Allergy Rapid Verified 07/18/23 14:15 [From Neosporin Heart Rate ([id number])] polymyxin B Allergy Rapid Verified 07/18/23 14:15 [From Neosporin Heart Rate ([id number]-[id number])] Sulfa (Sulfonamide Allergy Anaphylaxis, Verified 07/18/23 14:15 Antibiotics) racing heart venom-honey bee Allergy Unknown Verified 07/18/23 14:15 [bee venom (honey bee)] Physical Exam Vitals: Vital Signs Temp Pulse Pulse Resp BP BP BP 07/19/23 08:27 98.1 F 92 17 07/19/23 05:03 97.6 F 94 20 157/108 07/18/23 23:58 65 20 130/80 07/18/23 21:40 97.6 F 74 20 128/79 07/18/23 15:22 97.9 F 83 20 109/74 07/18/23 15:05 83 07/18/23 14:59 98.2 F 73 22 120/86 07/18/23 13:10 74 16 126/79 07/18/23 12:27 92 108/76 07/18/23 12:26 83 99/78 07/18/23 12:25 78 07/18/23 12:02 97 14 112/77 07/18/23 11:19 97.1 F L 77 18 120/75 07/18/23 10:59 97.8 F 82 20 107/73 BP Pulse Ox 07/19/23 08:27 100/60 93 L 07/19/23 05:03 96 07/18/23 23:58 93 L 07/18/23 21:40 93 L 07/18/23 15:22 94 L 07/18/23 15:05 07/18/23 14:59 95 07/18/23 13:10 96 07/18/23 12:27 96 07/18/23 12:26 98 07/18/23 12:25 123/94 95 07/18/23 12:02 97 03/21/24 11:19 97 07/18/23 10:59 98 Intake and Output 07/18/23 07/19/23 07/19/23 22:59 06:59 14:59 Intake Total 110 360 Output Total 200 Balance 110 -200 360 Intake: Oral 110 360 Output: Urine 200 Other: Voiding Method Toilet Toilet Toilet Urinal Urinal Urinal # Voids 1 # Bowel Movements 1 2 Weight 107.955 kg Patient is awake comfortable alert oriented 3. No acute distress Examination of the heart S1 and S2 Examination of the lungs bilateral breath sounds are heard Abdomen is soft nontender, obese Examination of lower extremities shows no evidence of edema PRODUCTION CONTROL COORDINATOR exam grossly intact Results - Lab Results Most recent lab results Calcium 8.8 mg/dL (8.4-10.2) 07/19/23 02:05 Magnesium 2.1 mg/dL (1.6-2.3) 07/18/23 11:59 07/18/23 11:59 07/19/23 02:05 Assessment and Plan Assessment: 1. Hyponatremia secondary to EtOH abuse/beer potomania. Currently improving with IV saline. Urine osmolality and urine sodium is pending. Continue with normal saline for now and patient is encouraged to increase oral intake of pro tein. 2. Hypokalemia associated with decreased oral intake 3. Acute kidney injury most likely prerenal, slightly improved with IV hydration. UA shows 1+ protein, trace blood with hyaline casts. 4. EtOH abuse 5. Alcoholic hepatitis Plan: Continue with normal saline Check ultrasound of the kidneys Replace potassium Encourage increase oral intake Patient is advised to decrease/discontinue alcohol consumption. Thank you for the consultation. We will continue to follow the patient with you during his hospitalization.
--- NOTE | 2023-07-19 11:14 | P.CRDCN ---
History of Present Illness History of present illness: HISTORY OF PRESENT ILLNESS: This is a 58-year-old male with a past medical history significant for syncope, hypertension, anxiety, nicotine dependence, and alcohol abuse. Patient follows in the office with Dr. Houston. We have been asked to see the patient in consultation for tilt table testing and syncope. Patient examined at the bedside. Patient was supposed to have a tilt table test completed yesterday but he was sent to the ER by Dr. Ovalle as he was extremely dizzy. He states that he felt shaky before the procedure. His tilt table was cancelled. Patient reports a chronic cough from smoking. He also reports shortness of breath with ambulation. He reports night sweats. He has had issues with syncope and dizziness in the past. He states his legs get really shaking and then he falls to the floor. This seems to happen most of the time after a coughing spell. Blood pressure has remained stable with no episodes of hypotension. He reports recent increase in his sleeping medication and also his anxiety medication. Patient reports having a recent stress test which was normal. This is also documented in cardiology office records by Dr. Houston. However, the actual report is not available at this time. He also had a carotid US in the office which did not reveal any significant stenosis. REVIEW OF SYSTEMS: At the time of my exam: CONSTITUTIONAL: Denies fever or chills. HEENT: Denies blurred vision, vision changes, or eye pain. Denies hemoptysis CARDIOVASCULAR: Denies chest pain. Denies orthopnea. Denies PND. Denies palpitations RESPIRATORY: Denies shortness of breath. GASTROINTESTINAL: Denies abdominal pain. Denies nausea or vomiting. HEMATOLOGIC: Denies bleeding disorders. GENITOURINARY: Denies any blood in urine. SKIN: Denies pruitis. Denies rash. PHYSICAL EXAM: VITAL SIGNS: Reviewed. GENERAL: Well-developed in no acute distress. HEENT: Head is normocephalic. Pupils are equal, round. Sclerae anicteric. Mucous membranes of the mouth are moist. Neck supple. No JVD or thyromegaly LUNGS: Respirations even and unlabored. Lungs essentially clear to auscultation bilaterally. HEART: Regular rate and rhythm. S1 and S2 heard. ABDOMEN: Soft. Nondistended. Nontender. EXTREMITIES: Normal range of motion. No clubbing or cyanosis. Peripheral pulses intact. No lower extremity edema NEUROLOGIC: Awake and alert. Oriented x 3. ASSESSMENT: Dizziness History of syncope Hyponatremia Elevated troponin, flat, not suggestive of acute coronary syndrome Acute kidney injury History of alcohol abuse, patient drinking 1 pint per day Hypokalemia Nicotine dependence Hyperglycemia, hemoglobin A1c 6.4 PLAN: Obtain 2D echo to assess cardiac structure and function Hold nephrotoxic agents. Continue to monitor kidney function Decrease metoprolol to 25mg Smoking cessation recommended Abstinence from alcohol encouraged Continue telemetry monitoring Further recommendations pending patient course Nurse practitioner note has been reviewed by physician. Signing provider agrees with the documented findings, assessment, and plan of care documented by LANDSCAPE HORTICULTURE INSTRUCTOR as a scribe. Past Medical History Past Medical History: Eye Disorder, Hearing Disorder / Deafness, Hypertension, Memory Impairment Additional Past Medical History / Comment(s): wake up gasping for air History of Any Multi-Drug Resistant Organisms: None Reported Past Surgical History: Orthopedic Surgery Additional Past Surgical History / Comment(s): sinus Past Anesthesia/Blood Transfusion Reactions: No Reported Reaction Past Psychological History: Anxiety Smoking Status: Current every day smoker Past Alcohol Use History: None Reported - Past Family History Mother Family Medical History: No Reported History Father Family Medical History: AFIB, AICD/Pacemaker, Coronary Artery Disease (CAD), CVA/TIA Medications and Allergies Home Medications Medication Instructions Recorded Confirmed Type Albuterol Inhaler [Ventolin Hfa 2 puff INHALATION RT-Q4H PRN 07/17/23 07/18/23 History Inhaler] Escitalopram [Lexapro] 20 mg PO DAILY 07/17/23 07/18/23 History Lisinopril-Hctz 10-12.5 mg 1 tab PO DAILY 07/17/23 07/18/23 History [Zestoretic 10-12.5] Meloxicam [Mobic] 15 mg PO DAILY 07/17/23 07/18/23 History Metoprolol Succinate [Toprol XL] 50 mg PO DAILY 07/17/23 07/18/23 History Omeprazole 40 mg PO DAILY 07/17/23 07/18/23 History busPIRone HCL 10 mg PO DAILY 07/17/23 07/18/23 History LORazepam [Ativan] 1 mg PO DIRECTED PRN 07/18/23 07/18/23 History traZODone HCL [Desyrel] 200 mg PO HS PRN 07/18/23 07/18/23 History Allergies Allergy/AdvReac Type Severity Reaction Status Date / Time bacitracin Allergy Rapid Verified 07/18/23 14:15 [From Neosporin Heart Rate ([id number])] neomycin Allergy Rapid Verified 07/18/23 14:15 [From Neosporin Heart Rate ([id number])] polymyxin B Allergy Rapid Verified 07/18/23 14:15 [From Neosporin Heart Rate ([id number])] Sulfa (Sulfonamide Allergy Anaphylaxis, Verified 07/18/23 14:15 Antibiotics) racing heart venom-honey bee Allergy Unknown Verified 07/18/23 14:15 [bee venom (honey bee)] Physical Exam Vitals: Vital Signs Temp Pulse Pulse Resp BP BP BP 07/19/23 05:03 97.6 F 94 20 157/108 07/18/23 23:58 65 20 130/80 07/18/23 21:40 97.6 F 74 20 128/79 07/18/23 15:22 97.9 F 83 20 109/74 07/18/23 15:05 83 07/18/23 14:59 98.2 F 73 22 120/86 07/18/23 13:10 74 16 126/79 07/18/23 12:27 92 108/76 07/18/23 12:26 83 99/78 07/18/23 12:25 78 07/18/23 12:02 97 14 112/77 07/18/23 11:19 97.1 F L 77 18 120/75 07/18/23 10:59 97.8 F 82 20 107/73 BP Pulse Ox 07/19/23 05:03 96 07/18/23 23:58 93 L 07/18/23 21:40 93 L 07/18/23 15:22 94 L 07/18/23 15:05 07/18/23 14:59 95 07/18/23 13:10 96 07/18/23 12:27 96 07/18/23 12:26 98 07/18/23 12:25 123/94 95 07/18/23 12:02 97 07/18/23 11:19 97 07/18/23 10:59 98 Intake and Output 07/18/23 07/19/23 07/19/23 22:59 06:59 14:59 Intake Total 110 Output Total 200 Balance 110 -200 Intake: Oral 110 Output: Urine 200 Other: Voiding Method Toilet Toilet Urinal Urinal # Voids 1 # Bowel Movements 1 2 Weight 107.955 kg Results 07/18/23 11:59 07/19/23 07:46 Cardiac Enzymes 07/18/23 07/18/23 07/18/23 Range/Units 11:59 11:59 15:05 AST 71 H (17-59) U/L Troponin I 0.043 H* 0.033 (0.000-0.034) ng/mL 07/18/23 Range/Units 18:18 AST (17-59) U/L Troponin I 0.035 H* (0.000-0.034) ng/mL Coagulation 07/18/23 Range/Units 11:59 PT 10.2 (10.0-12.5) sec APTT 23.3 (22.0-30.0) sec CBC 07/18/23 Range/Units 11:59 WBC 5.8 (3.8-10.6) k/uL RBC 3.85 L (4.30-5.90) m/uL Hgb 14.6 (13.0-17.5) gm/dL Hct 42.5 (39.0-53.0) % Plt Count 202 (150-450) k/uL Comprehensive Metabolic Panel 07/18/23 07/18/23 07/19/23 Range/Units 11:59 18:18 02:05 Sodium 123 L 121 L 124 L (137-145) mmol/L Potassium 3.3 L 3.3 L 3.0 L (3.5-5.1) mmol/L Chloride 79 L 81 L 86 L (98-107) mmol/L Carbon Dioxide 32 H 30 30 (22-30) mmol/L BUN 52 H 50 H 50 H (9-20) mg/dL Creatinine 2.28 H 2.31 H 2.03 H (0.66-1.25) mg/dL Glucose 193 H 315 H 149 H (74-99) mg/dL Calcium 9.0 8.7 8.8 (8.4-10.2) mg/dL AST 71 H (17-59) U/L ALT 46 (4-49) U/L Alkaline Phosphatase 101 (38-126) U/L Total Protein 6.3 (6.3-8.2) g/dL Albumin 3.6 (3.5-5.0) g/dL Current Medications Generic Name Dose Route Start Last Admin Trade Name Freq PRN Reason Stop Dose Admin Aspirin 81 mg 07/19/23 09:00 Aspirin 81 Mg PO DAILY [facility] Dextrose/Water 25 ml 07/18/23 19:25 Dextrose 50% Syringe 50 Ml IVP PER PROTOCOL PRN Hypoglycemia Protocol Dextrose/Water 50 ml 07/18/23 19:25 Dextrose 50% Syringe 50 Ml IVP PER PROTOCOL PRN Hypoglycemia Protocol Folic Acid 1 mg 07/19/23 09:00 Folic Acid 1 Mg Tab PO DAILY [facility] Heparin Sodium (Porcine) 5,000 unit 07/18/23 16:00 07/19/23 00:01 Heparin Sodium,Porcine 5,000 Unit/Ml 1 Ml Vial SQ 5,000 unit Q8HR BAO Administration Sodium Chloride 1,000 mls @ 75 mls/hr 07/18/23 13:45 07/19/23 04:54 Saline 0.9% IV Not Given .[id number] [facility] Insulin Aspart 0 unit 07/18/23 21:00 07/19/23 06:43 Insulin Aspart (Novolog) 100 Unit/Ml Vial SQ 1 unit ACHS BAO Administration Protocol Lorazepam 0.5 mg 07/18/23 15:01 Lorazepam 0.5 Mg Tab PO Q4HR PRN Ciwa 4 To 5 Lorazepam 1 mg 07/18/23 15:01 Lorazepam 1 Mg Tab PO Q4HR PRN Ciwa 6 To 7 Lorazepam 1 mg 07/18/23 15:01 Lorazepam 2 Mg/Ml Inj IV Q1HR PRN CIWA 10 to 15 Lorazepam 1 mg 07/18/23 15:01 Lorazepam 2 Mg/Ml Inj IV Q2HR PRN CIWA 8 or 9 Lorazepam 2 mg 07/18/23 15:01 Lorazepam 2 Mg/Ml Inj IV 07/20/23 15:01 Q10M PRN CIWA 16 or higher Metoprolol Succinate 50 mg 07/19/23 09:00 Metoprolol Succinate (Er) 50 Mg Tab.Er.24h PO DAILY [facility] Multivitamins 1 each 07/19/23 09:00 Multivitamins, Thera 1 Each Tab PO DAILY [facility] Naloxone HCl 0.2 mg 07/18/23 13:43 Naloxone 0.4 Mg/Ml 1 Ml Vial IV Q2M PRN Opioid Reversal Nicotine 1 patch 07/18/23 18:45 07/18/23 18:46 Nicotine 21mg/24hr Patch TRANSDERM 1 patch DAILY BAO Administration Pantoprazole Sodium 40 mg 07/19/23 07:30 07/19/23 06:43 Pantoprazole 40 Mg Tablet PO 40 mg [id number] BAO Administration Thiamine HCl 100 mg 07/19/23 09:00 Thiamine 100 Mg Tab PO DAILY BAO Intake and Output 07/18/23 07/19/23 07/19/23 22:59 06:59 14:59 Intake Total 110 Output Total 200 Balance 110 -200 Intake: Oral 110 Output: Urine 200 Other: Voiding Method Toilet Toilet Urinal Urinal # Voids 1 # Bowel Movements 1 2 Weight 107.955 kg 07/18/23 11:59 07/19/23 02:05
[2023-07-19 11:15] LABS: African American GFR (CKD) 46 (>60 ml/min/1.73 sqM); Anion Gap 8 mmol/L; Blood Urea Nitrogen 47 mg/dL (9-20); Carbon Dioxide 32 mmol/L (22-30); Chloride 84 mmol/L (98-107); Glucose 236 mg/dL (74-99); Non-African American GFR(CKD) 39 (>60 ml/min/1.73 sqM); Potassium 3.4 mmol/L (3.5-5.1); Sodium 124 mmol/L (137-145)
[2023-07-19] MEDS: LORazepam 1 MG TAB PO PRN (11:21)
[2023-07-19 11:30] LABS: Glucose,Whole Blood 261 mg/dL (70-110)
[2023-07-19 12:13] LABS: African American GFR (CKD) 53 (>60 ml/min/1.73 sqM); Anion Gap 8 mmol/L; Blood Urea Nitrogen 43 mg/dL (9-20); Calcium 8.5 mg/dL (8.4-10.2); Carbon Dioxide 28 mmol/L (22-30); Chloride 87 mmol/L (98-107); Glucose 230 mg/dL (74-99); Non-African American GFR(CKD) 46 (>60 ml/min/1.73 sqM); Potassium 3.1 mmol/L (3.5-5.1); Sodium 123 mmol/L (137-145)
--- NOTE | 2023-07-19 12:31 | US ---
EXAMINATION TYPE: US kidneys/renal and bladder DATE OF EXAM: 07/19/2023 COMPARISON: 07/18/2018 CLINICAL INDICATION: Male, 58 years old with history of des; Abnormal labs. EXAM MEASUREMENTS: Right Kidney: 10.9 x 5.5 x 6.8 cm Left Kidney: 11.0 x 4.4 x 5.6 cm Right Kidney: No hydronephrosis or masses seen Left Kidney: No hydronephrosis or masses seen Bladder: Not well visualized, mildly distended Bilateral Jets not seen There is no evidence for hydronephrosis at this point in time. No nephrolithiasis is seen. No vinod s are identified. The urinary bladder is nondistended. IMPRESSION: No evidence for obstructive uropathy.
[2023-07-19] MEDS: POTASSIUM CHLORIDE ER 20 MEQ TAB.ER PO STA (14:28)
[2023-07-19] MEDS: HYDROcodone/APAP 5-325MG 1 EACH TAB PO PRN (15:56)
[2023-07-19 16:44] LABS: Glucose,Whole Blood 198 mg/dL (70-110)
[2023-07-19] MEDS: TOLVAPTAN 15 MG TABLET PO ONE (17:24)
[2023-07-19] MEDS: LORazepam 2 MG/ML INJ IV PRN (19:01)
[2023-07-19 19:45] LABS: African American GFR (CKD) 58 (>60 ml/min/1.73 sqM); Anion Gap 5 mmol/L; Blood Urea Nitrogen 39 mg/dL (9-20); Calcium 8.8 mg/dL (8.4-10.2); Carbon Dioxide 29 mmol/L (22-30); Chloride 89 mmol/L (98-107); Glucose 247 mg/dL (74-99); Non-African American GFR(CKD) 50 (>60 ml/min/1.73 sqM); Potassium 3.8 mmol/L (3.5-5.1); Sodium 123 mmol/L (137-145)
[2023-07-19 20:19] LABS: Glucose,Whole Blood 228 mg/dL (70-110)
--- NOTE | 2023-07-19 22:47 | CA ---
Transthoracic Echo Report Name: Moody Will Age: 58 Gender: M : 1965 Exam Date: 07/18/2023 16:11 Exam Location: [place] [facility] Ht (in): 71 Wt (lb): 238 Ordering Physician: Rafi Arguello Attending/Referring Phys: Candle Pourer Melania Dalal RDCS Procedure CPT: Indications: severe dizziness w/ tilt table test elev trop Cardiac Hx: Technical Quality: Technically difficult study Contrast 1: Definity Total Dose (mL): 2 Contrast 2: Total Dose (mL): MEASUREMENTS (Male / Female) Normal Values 2D ECHO LV Diastolic Diameter PLAX 4.4 cm 4.2 - 5.9 / 3.9 - 5.3 cm LV Systolic Diameter PLAX 2.8 cm IVS Diastolic Thickness 1.7 cm 0.6 - 1.0 / 0.6 - 0.9 cm LVPW Diastolic Thickness 1.6 cm 0.6 - 1.0 / 0.6 - 0.9 cm LV Relative Wall Thickness 0.8 RV Internal Dim ED PLAX 4.1 cm LA Systolic Diameter LX 3.7 cm 3.0 - 4.0 / 2.7 - 3.8 cm LA Volume 40.9 cm??? 18 - 58 / 22 - 52 cm??? LA Volume Index 17.3 cm???/m??? 16 - 28 cm???/m??? M-MODE Aortic Root Diameter MM 3.4 cm AV Cusp Separation MM 2.5 cm DOPPLER AV Peak Velocity 140.5 cm/s AV Peak Gradient 7.9 mmHg MV Area PHT 2.9 cm??? Mitral E Point Velocity 56.1 cm/s Mitral A Point Velocity 65.4 cm/s Mitral E to A Ratio 0.9 MV Deceleration Time 261.8 ms LV A' Lateral Velocity 6.0 cm/s LV E' Septal Velocity 5.0 cm/s Mitral E to LV E' Septal Ratio 11.1 TR Peak Velocity 305.0 cm/s TR Peak Gradient 37.2 mmHg Right Ventricular Systolic Press 41.6 mmHg FINDINGS Left Ventricle Left ventricular ejection fraction is estimated at 60-65 %. Left ventricular cavity size normal. Severely increased septal wall thickness Right Ventricle right ventricular dilatation. Mild pulmonary hypertension. Right ventricular systolic pressure estimated at 42 mm hg. Right Atrium Right atrium not well visualized. Left Atrium Normal left atrial size. Mitral Valve Structurally normal mitral valve. No mitral stenosis, regurgitation or prolapse. Aortic Valve Trileaflet aortic valve. No aortic valve stenosis or regurgitation. Tricuspid Valve Structurally normal tricuspid valve. Mild tricuspid regurgitation. Pulmonic Valve Structurally normal pulmonic valve. No pulmonic regurgitation. Pericardium No pericardial effusion. Aorta Normal size aortic root and proximal ascending aorta. CONCLUSIONS Technically difficult study. LVEF 60%. Severely increased septal wall thickness (1.7 cm in basal septal) No evidence of increased gradients and LVOT. No significant valvular dysfunction Mild Right ventricular dilatation. RVSP estimated at 42 mmHg Previewed by: Dr Aleks Lebron (Electronically Signed) Final Date: 19 July 2023 22:46
[2023-07-19 23:54] LABS: African American GFR (CKD) 63 (>60 ml/min/1.73 sqM); Anion Gap 5 mmol/L; Blood Urea Nitrogen 35 mg/dL (9-20); Calcium 8.9 mg/dL (8.4-10.2); Carbon Dioxide 31 mmol/L (22-30); Chloride 91 mmol/L (98-107); Glucose 154 mg/dL (74-99); Non-African American GFR(CKD) 55 (>60 ml/min/1.73 sqM); Sodium 127 mmol/L (137-145)
[2023-07-20 06:12] LABS: Glucose,Whole Blood 184 mg/dL (70-110)
[2023-07-20 07:53] LABS: HCT 41.2 % (39.0-53.0); HGB 14.5 gm/dL (13.0-17.5); MCH 38.9 pg (25.0-35.0); MCHC 35.1 g/dL (31.0-37.0); MCV 110.8 fL (80.0-100.0); Macrocytosis Marked; Mean Platelet Volume 8.1; Platelet Count 228 k/uL (150-450); RBC 3.72 m/uL (4.30-5.90); RDW 13.1 % (11.5-15.5); WBC 4.1 k/uL (3.8-10.6)
[2023-07-20 08:08] LABS: African American GFR (CKD) 71 (>60 ml/min/1.73 sqM); Anion Gap 6 mmol/L; Blood Urea Nitrogen 30 mg/dL (9-20); Calcium 9.2 mg/dL (8.4-10.2); Carbon Dioxide 30 mmol/L (22-30); Chloride 93 mmol/L (98-107); Glucose 199 mg/dL (74-99); Magnesium 1.9 mg/dL (1.6-2.3); Non-African American GFR(CKD) 61 (>60 ml/min/1.73 sqM); Potassium 3.3 mmol/L (3.5-5.1); Sodium 129 mmol/L (137-145)
--- NOTE | 2023-07-20 09:52 | P.PN ---
Subjective HISTORY OF PRESENT ILLNESS: This is a 58-year-old male with a past medical history significant for syncope, hypertension, anxiety, nicotine dependence, and alcohol abuse. Patient follows in the office with Dr. Houston. We have been asked to see the patient in consultation for tilt table testing and syncope. Patient examined at the bedside. Patient was supposed to have a tilt table test completed yesterday but he was sent to the ER by Dr. Ovalle as he was extremely dizzy. He states that he felt shaky before the procedure. His tilt table was cancelled. Patient reports a chronic cough from smoking. He also reports shortness of breath with ambulation. He reports night sweats. He has had issues with syncope and dizziness in the past. He states his legs get really shaking and then he falls to the floor. This seems to happen most of the time after a coughing spell. Blood pressure has remained stable with no episodes of hypotension. He reports recent increase in his sleeping medication and also his anxiety medication. Patient reports having a recent stress test which was normal. This is also documented in cardiology office records by Dr. Houston. However, the actual report is not available at this time. He also had a carotid US in the office which did not reveal any significant stenosis. 07/20/2023 Patient examined this morning at the bedside. Patient is sleeping this morning. He did receive IV ativan overnight. Patient currently denies chest pain or pressure. He denies shortness of breath. Blood pressure remains elevated with a systolic between [id number]. He reports improvement in his dizziness. Patient remains hyponatremic with a sodium level of 129. Potassium 3.3. Creatinine has improved to 1.29. Echocardiogram completed revealing ejection fraction 60 to 65%, mild pulmonary hypertension, mild TR PHYSICAL EXAM: VITAL SIGNS: Reviewed. GENERAL: Well-developed in no acute distress. HEENT: Head is normocephalic. Pupils are equal, round. Sclerae anicteric. Mucous membranes of the mouth are moist. Neck supple. No JVD or thyromegaly LUNGS: Respirations even and unlabored. Lungs essentially clear to auscultation bilaterally. HEART: Regular rate and rhythm. S1 and S2 heard. ABDOMEN: Soft. Nondistended. Nontender. EXTREMITIES: Normal range of motion. No clubbing or cyanosis. Peripheral pulses intact. No lower extremity edema NEUROLOGIC: Awake and alert. Oriented x 3. ASSESSMENT: Dizziness History of syncope Hyponatremia Elevated troponin, flat, not suggestive of acute coronary syndrome Acute kidney injury History of alcohol abuse, patient drinking 1 pint per day Hypokalemia Nicotine dependence Hyperglycemia, hemoglobin A1c 6.4 PLAN: Lisinopril remains on hold secondary to ZAID. Continue to hold. Patient feels better this morning with improvement in his blood pressures. Okay for SBP to run 140-150 at this time. Smoking cessation recommended Abstinence from alcohol encouraged Continue telemetry monitoring Further recommendations pending patient course Nurse practitioner note has been reviewed by physician. Signing provider agrees with the documented findings, assessment, and plan of care documented by IT PROGRAM ENGAGEMENT DIRECTOR as a scribe. Objective - Vital Signs Vital signs: Vital Signs Temp 98.1 F 07/19/23 08:27 Pulse 89 07/20/23 03:17 Resp 18 07/20/23 03:17 BP 156/95 07/20/23 03:17 Pulse Ox 94 L 07/20/23 03:17 FiO2 Intake & Output 07/19/23 07/20/23 07/20/23 18:59 06:59 18:59 Intake Total 1740 220 Output Total 550 1150 Balance 1190 -930 Weight 109.5 kg Intake: Oral 1740 220 Output: Urine 550 1150 Other: Voiding Method Toilet Toilet Urinal Urinal # Voids 1 # Bowel Movements 2 - Labs CBC & Chem 7: 07/20/23 07:42 07/20/23 07:42 Labs: Abnormal Lab Results - Last 24 Hours (Table) 07/18/23 07/19/23 07/19/23 Range/Units 23:39 07:46 11:28 RBC (4.30-5.90) m/uL MCV (80.0-100.0) fL MCH (25.0-35.0) pg Macrocytosis Sodium 124 L (137-145) mmol/L Potassium 3.4 L (3.5-5.1) mmol/L Chloride 84 L (98-107) mmol/L Carbon Dioxide 32 H (22-30) mmol/L BUN 47 H (9-20) mg/dL Creatinine 1.86 H (0.66-1.25) mg/dL Glucose 236 H (74-99) mg/dL POC Glucose (mg/dL) 261 H (70-110) mg/dL Ur Random Uric Acid 17.0 L (37.0-92.0) mg/dL 07/19/23 07/19/23 07/19/23 Range/Units 11:33 16:42 19:03 RBC (4.30-5.90) m/uL MCV (80.0-100.0) fL MCH (25.0-35.0) pg Macrocytosis Sodium 123 L 123 L (137-145) mmol/L Potassium 3.1 L (3.5-5.1) mmol/L Chloride 87 L 89 L (98-107) mmol/L Carbon Dioxide (22-30) mmol/L BUN 43 H 39 H (9-20) mg/dL Creatinine 1.65 H 1.52 H (0.66-1.25) mg/dL Glucose 230 H 247 H (74-99) mg/dL POC Glucose (mg/dL) 198 H (70-110) mg/dL Ur Random Uric Acid (37.0-92.0) mg/dL 07/19/23 07/19/23 07/20/23 Range/Units 20:16 23:25 06:11 RBC (4.30-5.90) m/uL MCV (80.0-100.0) fL MCH (25.0-35.0) pg Macrocytosis Sodium 127 L (137-145) mmol/L Potassium 3.0 L (3.5-5.1) mmol/L Chloride 91 L (98-107) mmol/L Carbon Dioxide 31 H (22-30) mmol/L BUN 35 H (9-20) mg/dL Creatinine 1.42 H (0.66-1.25) mg/dL Glucose 154 H (74-99) mg/dL POC Glucose (mg/dL) 228 H 184 H (70-110) mg/dL Ur Random Uric Acid (37.0-92.0) mg/dL 07/20/23 07/20/23 Range/Units 07:42 07:42 RBC 3.72 L (4.30-5.90) m/uL MCV 110.8 H (80.0-100.0) fL MCH 38.9 H (25.0-35.0) pg Macrocytosis Marked A Sodium 129 L (137-145) mmol/L Potassium 3.3 L (3.5-5.1) mmol/L Chloride 93 L (98-107) mmol/L Carbon Dioxide (22-30) mmol/L BUN 30 H (9-20) mg/dL Creatinine 1.29 H (0.66-1.25) mg/dL Glucose 199 H (74-99) mg/dL POC Glucose (mg/dL) (70-110) mg/dL Ur Random Uric Acid (37.0-92.0) mg/dL
--- NOTE | 2023-07-20 10:10 | P.PN ---
Subjective Patient is seen in follow-up for acute kidney injury and hyponatremia. Renal function improving. Sodium level also up to 129. Currently off IV fluids. Oral intake is good. No vomiting or diarrhea. Vital signs are stable. General: No acute distress. HEENT: Head exam is unremarkable. LUNGS: No audible rhonchi or wheezes. HEART: Rate and Rhythm are regular. ABDOMEN: Nontender. EXTREMITITES: No edema. Objective - Vital Signs Vital signs: Vital Signs Temp 98.1 F 07/19/23 08:27 Pulse 89 07/20/23 03:17 Resp 18 07/20/23 03:17 BP 156/95 07/20/23 03:17 Pulse Ox 94 L 07/20/23 03:17 FiO2 Intake & Output 07/19/23 07/20/23 07/20/23 18:59 06:59 18:59 Intake Total 1740 220 Output Total 550 1150 Balance 1190 -930 Weight 109.5 kg Intake: Oral 1740 220 Output: Urine 550 1150 Other: Voiding Method Toilet Toilet Urinal Urinal # Voids 1 # Bowel Movements 2 - Labs CBC & Chem 7: 07/20/23 07:42 07/20/23 07:42 Labs: Abnormal Lab Results - Last 24 Hours (Table) 07/18/23 07/19/23 07/19/23 Range/Units 23:39 07:46 11:28 RBC (4.30-5.90) m/uL MCV (80.0-100.0) fL MCH (25.0-35.0) pg Macrocytosis Sodium 124 L (137-145) mmol/L Potassium 3.4 L (3.5-5.1) mmol/L Chloride 84 L (98-107) mmol/L Carbon Dioxide 32 H (22-30) mmol/L BUN 47 H (9-20) mg/dL Creatinine 1.86 H (0.66-1.25) mg/dL Glucose 236 H (74-99) mg/dL POC Glucose (mg/dL) 261 H (70-110) mg/dL Ur Random Uric Acid 17.0 L (37.0-92.0) mg/dL 07/19/23 07/19/23 07/19/23 Range/Units 11:33 16:42 19:03 RBC (4.30-5.90) m/uL MCV (80.0-100.0) fL MCH (25.0-35.0) pg Macrocytosis Sodium 123 L 123 L (137-145) mmol/L Potassium 3.1 L (3.5-5.1) mmol/L Chloride 87 L 89 L (98-107) mmol/L Carbon Dioxide (22-30) mmol/L BUN 43 H 39 H (9-20) mg/dL Creatinine 1.65 H 1.52 H (0.66-1.25) mg/dL Glucose 230 H 247 H (74-99) mg/dL POC Glucose (mg/dL) 198 H (70-110) mg/dL Ur Random Uric Acid (37.0-92.0) mg/dL 07/19/23 07/19/23 07/20/23 Range/Units 20:16 23:25 06:11 RBC (4.30-5.90) m/uL MCV (80.0-100.0) fL MCH (25.0-35.0) pg Macrocytosis Sodium 127 L (137-145) mmol/L Potassium 3.0 L (3.5-5.1) mmol/L Chloride 91 L (98-107) mmol/L Carbon Dioxide 31 H (22-30) mmol/L BUN 35 H (9-20) mg/dL Creatinine 1.42 H (0.66-1.25) mg/dL Glucose 154 H (74-99) mg/dL POC Glucose (mg/dL) 228 H 184 H (70-110) mg/dL Ur Random Uric Acid (37.0-92.0) mg/dL 07/20/23 07/20/23 Range/Units 07:42 07:42 RBC 3.72 L (4.30-5.90) m/uL MCV 110.8 H (80.0-100.0) fL MCH 38.9 H (25.0-35.0) pg Macrocytosis Marked A Sodium 129 L (137-145) mmol/L Potassium 3.3 L (3.5-5.1) mmol/L Chloride 93 L (98-107) mmol/L Carbon Dioxide (22-30) mmol/L BUN 30 H (9-20) mg/dL Creatinine 1.29 H (0.66-1.25) mg/dL Glucose 199 H (74-99) mg/dL POC Glucose (mg/dL) (70-110) mg/dL Ur Random Uric Acid (37.0-92.0) mg/dL Assessment and Plan Plan: Assessment: 1. Acute kidney injury secondary to vasomotor nephropathy improving with IV fluids. Creatinine peaked at 2.31 this admission and is down to 1.29 today. No hydronephrosis noted on kidney ultrasound. 2. Hypovolemic hyponatremia worsened with the use of thiazide diuretic. Better. Urine sodium 54 and urine osmolality 525. TSH normal. 3. Hypokalemia from poor intake and diuretic use. 4. Benign hypertension. Stable. 5. Alcohol abuse. Plan: Encouraged oral intake. Maintain fluid restriction. Replace potassium. Avoid nephrotoxins. Avoid thiazide diuretics in future.
[2023-07-20 10:20] LABS: African American GFR (CKD) 71 (>60 ml/min/1.73 sqM); Anion Gap 5 mmol/L; Blood Urea Nitrogen 30 mg/dL (9-20); Calcium 9.1 mg/dL (8.4-10.2); Carbon Dioxide 34 mmol/L (22-30); Chloride 91 mmol/L (98-107); Glucose 179 mg/dL (74-99); Non-African American GFR(CKD) 61 (>60 ml/min/1.73 sqM); Potassium 3.1 mmol/L (3.5-5.1); Sodium 130 mmol/L (137-145)
[2023-07-20] MEDS: METOPROLOL SUCCINATE (ER) 25 MG TAB.ER.24H PO SCH (10:57)
[2023-07-20] MEDS: POTASSIUM CHLORIDE ER 20 MEQ TAB.ER PO STA (10:58)
[2023-07-20 11:29] LABS: Glucose,Whole Blood 199 mg/dL (70-110)
--- NOTE | 2023-07-20 12:25 | P.PN ---
Subjective Progress Note Date: 07/20/23 History of Presenting Illness: Patient is a very pleasant 58-year-old male with a past medical history of hypertension, COPD with continued nicotine dependence, and daily alcohol use drinking 1 pint of alcohol daily every day for at least the last 10 months. He presented to the emergency department secondary to severe dizziness. He was sent by Dr. Ovalle with [facility] after becoming severely dizzy during tilt table testing. He underwent full evaluation upon arrival to our facility. Vital signs upon arrival show blood pressure 107/73, heart rate 82, respiratory rate 20, temp 97.8 F, and SpO2 of 98% on room air. EKG was completed showing normal sinus rhythm at 77 bpm with prominent Q waves in leads II, aVF, V5 and V6. Which appears to be unchanged when compared to EKG completed 03/20/2015 upon personal review, comparison, and interpretation.. Chest x-ray completed negative for acute cardiopulmonary process. Labs completed and reviewed. CBC showing macrocytosis with MCV of 110.2 and MCH of 37.9. BMP showing acute hyponatremia with sodium of 123, hypokalemia with potassium of 3.3, and high anion gap metabolic alkalosis with hypochloremia with chloride of 79, hypercarbia with bicarb of 32 and anion gap of 12 as well as acute kidney injury with BUN of 52, creatinine 2.28, and GFR of 31. Blood glucose 193. Lactic acid was 1.2. Magnesium 2.1. Liver profile showing elevated AST of 71 otherwise normal findings. Troponin was elevated at 0.043. Patient is being admitted under our services with consultation to cardiology and nephrology. Physical exam: Patient was seen and fully evaluated at bedside this morning. Patient appears to be doing much better this morning. He is sitting up on the side of the bed this morning. Reports dizziness has improved but is exacerbated still with movement. He denies having any headache, chest pain, palpitations, shortness of breath, or experiencing any numbness/tingling/weakness in his extremities. Patient's at bedside visiting this morning. Patient did have noted tremors in bilateral upper and lower extremities this morning and mildly diaphoretic secondary to withdrawal. RN medicating patient per [facility] protocol. Vital signs reviewed and stable. General: Nontoxic, no distress and appears stated age. Derm: Skin warm and dry, normal coloration for ethnicity. Head: Atraumatic, normocephalic and symmetric. Eyes: EOMs intact, no lid lag, and anicteric sclera. Pupils PERRLA Mouth: no lip lesions, mucus membranes moist Cardiovascular: regular rate and rhythm with normal S1S2, no murmur, positive posterior tibial pulses bilaterally, and cap refill < 2 seconds. Lungs: Respirations even, regular, and unlabored on room air. Lungs CTA bilaterally, no rhonchi, no rales, no wheezing, and no accessory muscle usage. Abdominal: soft, nontender to palpation, no guarding, no appreciable organomegaly Ext: ROM intact. No gross muscle atrophy, no edema, no contractures Neuro: Speech clear, face symmetrical and CN II-XII grossly intact with no noted focal neuro deficits. GCS 15. Slight resting tremors noted to bilateral hands. Psych: Alert and oriented to person, place, time, and situation. Appropriate and pleasant affect. Assessment and Plan of Care: Intractable dizziness Elevated troponins -Cardiology following, reviewed documentation in chart -Telemetry monitoring -Cardiac diet -Continue 81 mg daily. -Patient to continue daily medication regimen with metoprolol succinate 50 mg daily. Lisinopril/hydrochlorothiazide held secondary to hyponatremia and ZAID. -Echocardiogram showing preserved EF of 60-65% with severely increased septal wa ll thickness and mild right ventricular dilation with mild pulmonary hypertension -Fall precautions in place. Hyponatremia, slowly improving with gentle IV fluid hydration High anion gap metabolic alkalosis, improving with IV fluid hydration Acute kidney injury, slowly improving with IV fluid hydration -Hyponatremia likely due to dehydration with daily alcohol abuse in addition to thiazide diuretic use. -TSH normal findings at 2.440.serum osmolality was normal at 280. Urine osmolality 525, and random urine sodium was 54. -Nephrology following and discussed plan of care with Dr. Franklin. -Strict I's and O's, patient has had a documented output of 1700 cc over the past 24 hours. -Patient to remain on telemetry monitoring with fall precautions and seizure precautions -Continue to hold lisinopril/hydrochlorothiazide and Lexapro. Alcohol withdraw in active alcoholic -Continue monitoring of CIWA scores and patient to be medicated with Ativan 0.5 mg every 4 hours as needed for CIWA score of 4-5, Ativan 1 mg every 4 hours for CIWA score of 6-7, Ativan 2 mg every 3 hours CIWA score of 8-9, and Ativan 2 mg every 2 hours forr CIWA score of 10 or greater. Current CIWA 8. -Continue thiamine 100 mg daily, Multivitamin daily and Folate 1 mg daily -Continue seizure, fall, and aspiration precautions. -Continued close monitoring of electrolytes and replace as needed. Hypokalemia Most recent potassium was 3.3 at 2 AM and patient received an additional dose of K-Dur 40 mEq. We will continue to monitor with repeat morning labs and replace abnormal electrolyte values as indicated based upon these findings. Nicotine dependence Recommend smoking cessation and continue with nicotine patch 21 mg daily. Data and imaging reviewed: Vital signs reviewed. Blood pressure 156/95, heart rate 89, respiratory rate 18, and SpO2 of 94% on room air. CBC showing stable macrocytosis with MCV of 110.8. BMP showing continued improvement in hyponatremia with sodium of 129, potassium 3.3, chloride 93, and persistent improvement of renal function as well with BUN of 30, creatinine 1.29, and GFR of 61. Magnesium normal findings at 1.9. Urine osmolality 525 and random urine sodium 54.. CODE STATUS: Full code DVT prophylaxis: Heparin Anticipated discharge date: Clinical course to determine Anticipated discharge place: Clinical course to determine Patient was seen independently by Nurse Practitioner. This document was prepared using [employer] dictation software. Please allow for errors in expressive art therapist while rare they do occur. Rafi Arguello NP rendered care for this patient independently, reviewed the findings and plan as documented in the note above. I did not physically speak with or examine the patient on this date. Objective - Vital Signs Vital signs: Vital Signs Temp 98.1 F 07/19/23 08:27 Pulse 89 07/20/23 03:17 Resp 18 07/20/23 03:17 BP 156/95 07/20/23 03:17 Pulse Ox 94 L 07/20/23 03:17 FiO2 Intake & Output 07/19/23 07/20/23 07/20/23 18:59 06:59 18:59 Intake Total 1740 220 Output Total 550 1150 Balance 1190 -930 Weight 109.5 kg Intake: Oral 1740 220 Output: Urine 550 1150 Other: Voiding Method Toilet Toilet Urinal Urinal # Voids 1 # Bowel Movements 2 - Labs CBC & Chem 7: 07/20/23 07:42 07/20/23 09:15 Labs: Abnormal Lab Results - Last 24 Hours (Table) 07/18/23 07/19/23 07/19/23 Range/Units 23:39 02:05 07:46 RBC (4.30-5.90) m/uL MCV (80.0-100.0) fL MCH (25.0-35.0) pg Macrocytosis Sodium 124 L (137-145) mmol/L Potassium 3.4 L (3.5-5.1) mmol/L Chloride 84 L (98-107) mmol/L Carbon Dioxide 32 H (22-30) mmol/L BUN 47 H (9-20) mg/dL Creatinine 1.86 H (0.66-1.25) mg/dL Glucose 236 H (74-99) mg/dL POC Glucose (mg/dL) (70-110) mg/dL Hemoglobin A1c 6.3 H (<=6.0) % Ur Random Uric Acid 17.0 L (37.0-92.0) mg/dL 07/19/23 07/19/23 07/19/23 Range/Units 11:28 11:33 16:42 RBC (4.30-5.90) m/uL MCV (80.0-100.0) fL MCH (25.0-35.0) pg Macrocytosis Sodium 123 L (137-145) mmol/L Potassium 3.1 L (3.5-5.1) mmol/L Chloride 87 L (98-107) mmol/L Carbon Dioxide (22-30) mmol/L BUN 43 H (9-20) mg/dL Creatinine 1.65 H (0.66-1.25) mg/dL Glucose 230 H (74-99) mg/dL POC Glucose (mg/dL) 261 H 198 H (70-110) mg/dL Hemoglobin A1c (<=6.0) % Ur Random Uric Acid (37.0-92.0) mg/dL 07/19/23 07/19/23 07/19/23 Range/Units 19:03 20:16 23:25 RBC (4.30-5.90) m/uL MCV (80.0-100.0) fL MCH (25.0-35.0) pg Macrocytosis Sodium 123 L 127 L (137-145) mmol/L Potassium 3.0 L (3.5-5.1) mmol/L Chloride 89 L 91 L (98-107) mmol/L Carbon Dioxide 31 H (22-30) mmol/L BUN 39 H 35 H (9-20) mg/dL Creatinine 1.52 H 1.42 H (0.66-1.25) mg/dL Glucose 247 H 154 H (74-99) mg/dL POC Glucose (mg/dL) 228 H (70-110) mg/dL Hemoglobin A1c (<=6.0) % Ur Random Uric Acid (37.0-92.0) mg/dL 07/20/23 07/20/23 07/20/23 Range/Units 06:11 07:42 07:42 RBC 3.72 L (4.30-5.90) m/uL MCV 110.8 H (80.0-100.0) fL MCH 38.9 H (25.0-35.0) pg Macrocytosis Marked A Sodium 129 L (137-145) mmol/L Potassium 3.3 L (3.5-5.1) mmol/L Chloride 93 L (98-107) mmol/L Carbon Dioxide (22-30) mmol/L BUN 30 H (9-20) mg/dL Creatinine 1.29 H (0.66-1.25) mg/dL Glucose 199 H (74-99) mg/dL POC Glucose (mg/dL) 184 H (70-110) mg/dL Hemoglobin A1c (<=6.0) % Ur Random Uric Acid (37.0-92.0) mg/dL
[2023-07-20] MEDS: LORazepam 2 MG/ML INJ IV PRN (14:31)
[2023-07-20 16:43] LABS: Glucose,Whole Blood 264 mg/dL (70-110)
[2023-07-20 20:34] LABS: Glucose,Whole Blood 186 mg/dL (70-110)
[2023-07-21 06:09] LABS: Glucose,Whole Blood 174 mg/dL (70-110)
[2023-07-21 10:57] LABS: African American GFR (CKD) 74 (>60 ml/min/1.73 sqM); Anion Gap 6 mmol/L; Blood Urea Nitrogen 22 mg/dL (9-20); Carbon Dioxide 31 mmol/L (22-30); Chloride 94 mmol/L (98-107); Glucose 167 mg/dL (74-99); Magnesium 1.8 mg/dL (1.6-2.3); Non-African American GFR(CKD) 64 (>60 ml/min/1.73 sqM); Potassium 3.2 mmol/L (3.5-5.1); Sodium 131 mmol/L (137-145)
--- NOTE | 2023-07-21 11:05 | P.PN ---
Subjective Patient is seen in follow-up for acute kidney injury and hyponatremia. Renal function improving. Sodium level also up to 131. Currently off IV fluids. Oral intake is good. No vomiting or diarrhea. Vital signs are stable. General: No acute distress. HEENT: Head exam is unremarkable. LUNGS: No audible rhonchi or wheezes. HEART: Rate and Rhythm are regular. ABDOMEN: Nontender. EXTREMITITES: No edema. Objective - Vital Signs Vital signs: Vital Signs Temp 97.9 F 07/20/23 16:00 Pulse 98 07/21/23 04:00 Resp 20 07/21/23 04:00 BP 143/84 07/21/23 04:00 Pulse Ox 94 L 07/21/23 04:00 FiO2 Intake & Output 07/20/23 07/21/23 07/21/23 18:59 06:59 18:59 Intake Total 720 Output Total 200 Balance 520 Weight 107.5 kg Intake: Oral 720 Output: Urine 200 Other: Voiding Method Toilet Toilet Urinal Urinal - Labs CBC & Chem 7: 07/20/23 07:42 07/20/23 09:15 Labs: Abnormal Lab Results - Last 24 Hours (Table) 07/20/23 07/20/23 07/20/23 Range/Units 11:28 16:42 20:32 POC Glucose (mg/dL) 199 H 264 H 186 H (70-110) mg/dL 07/21/23 Range/Units 06:06 POC Glucose (mg/dL) 174 H (70-110) mg/dL Assessment and Plan Plan: Assessment: 1. Acute kidney injury secondary to vasomotor nephropathy improving with IV fluids. Creatinine peaked at 2.31 this admission and is down to 1.25 today. No hydronephrosis noted on kidney ultrasound. 2. Hypovolemic hyponatremia worsened with the use of thiazide diuretic. Better. Urine sodium 54 and urine osmolality 525. TSH normal. 3. Hypokalemia from poor intake and diuretic use. 4. Benign hypertension. Stable. 5. Alcohol abuse. Plan: Encouraged oral intake. Maintain fluid restriction. Replace potassium. Avoid nephrotoxins. Avoid thiazide diuretics in future.
[2023-07-21] MEDS ORDERED: traZODone HCL 100 MG TAB PO PRN (11:09)
--- NOTE | 2023-07-21 11:12 | P.PN ---
Subjective Progress Note Date: 07/21/23 Hospital Course: Patient is a very pleasant 58-year-old male with a past medical history of hypertension, COPD with continued nicotine dependence, and daily alcohol use drinking 1 pint of alcohol daily every day for at least the last 10 months. He presented to the emergency department secondary to severe dizziness. He was sent by Dr. Ovalle with [facility] after becoming severely dizzy during tilt table testing. He underwent full evaluation upon arrival to our facility. Vital signs upon arrival show blood pressure 107/73, heart rate 82, respiratory rate 20, temp 97.8 F, and SpO2 of 98% on room air. EKG was completed showing normal sinus rhythm at 77 bpm with prominent Q waves in leads II, aVF, V5 and V6. Which appears to be unchanged when compared to EKG completed 03/20/2015 upon personal review, comparison, and interpretation.. est x-ray completed negative for acute cardiopulmonary process. Labs completed and reviewed. CBC showing macrocytosis with MCV of 110.2 and MCH of 37.9. BMP showing acute hyponatremia with sodium of 123, hypokalemia with potassium of 3.3, and high anion gap metabolic alkalosis with hypochloremia with chloride of 79, hypercarbia with bicarb of 32 and anion gap of 12 as well as acute kidney injury with BUN of 52, creatinine 2.28, and GFR of 31. Blood glucose 193. Lactic acid was 1.2. Magnesium 2.1. Liver profile showing elevated AST of 71 otherwise normal findings. Troponin was elevated at 0.043. Patient was admitted under our services with consultation to cardiology and nephrology. Physical exam: Patient seen and fully evaluated at the bedside this morning. He appears to be doing slightly better this morning he reports dizziness only upon standing and walking and is fully resolved while at rest. Patient had only mild tremors to hands noted at this time. He denies having any headache, chest pain, palpitations, shortness of breath, or experiencing any numbness/tingling in his extremities. Awaiting morning labs to result. Vital signs reviewed and stable. General: Nontoxic, no distress and appears stated age. Derm: Skin warm and dry, normal coloration for ethnicity. Head: Atraumatic, normocephalic and symmetric. Eyes: EOMs intact, no lid lag, and anicteric sclera. Pupils PERRLA Mouth: no lip lesions, mucus membranes moist Cardiovascular: regular rate and rhythm with normal S1S2, no murmur, positive posterior tibial pulses bilaterally, and cap refill < 2 seconds. Lungs: Respirations even, regular, and unlabored on room air. Lungs CTA bilaterally, no rhonchi, no rales, no wheezing, and no accessory muscle usage. Abdominal: soft, nontender to palpation, no guarding, no appreciable organomegaly Ext: ROM intact. No gross muscle atrophy, no edema. Neuro: Speech clear, face symmetrical and CN II-XII grossly intact with no noted focal neuro deficits. GCS 15. Slight resting tremors noted to bilateral hands. Psych: Alert and oriented to person, place, time, and situation. Appropriate and pleasant affect. Assessment and Plan of Care: Intractable dizziness, improved Elevated troponins -Cardiology following, decrease metoprolol to 25 mg daily reviewed documentation in chart -Telemetry monitoring -Cardiac diet -Continue 81 mg daily. -Patient to continue daily medication regimen with metoprolol succinate 25 mg daily. Lisinopril/hydrochlorothiazide held secondary to hyponatremia and ZAID. -Echocardiogram showing preserved EF of 60-65% with severely increased septal wall thickness and mild right ventricular dilation with mild pulmonary h ypertension -Fall precautions in place. Hyponatremia, slowly improving with gentle IV fluid hydration High anion gap metabolic alkalosis, improving with IV fluid hydration Acute kidney injury, slowly improving with IV fluid hydration -Hyponatremia likely due to dehydration with daily alcohol abuse in addition to thiazide diuretic use. -TSH normal findings at 2.440.serum osmolality was normal at 280. Urine osmolality 525, and random urine sodium was 54. -Nephrology following and discussed plan of care with Dr. Franklin. -Strict I's and O's -Patient to remain on telemetry monitoring with fall precautions and seizure precautions -Continue to hold lisinopril/hydrochlorothiazide. Alcohol withdraw in active alcoholic -Continue monitoring of CIWA scores and patient to be medicated with Ativan 0.5 mg every 4 hours as needed for CIWA score of 4-5, Ativan 1 mg every 4 hours for CIWA score of 6-7, Ativan 2 mg every 3 hours CIWA score of 8-9, and Ativan 2 mg every 2 hours forr CIWA score of 10 or greater. Current CIWA 3 -Continue thiamine 100 mg daily, Multivitamin daily and Folate 1 mg daily -Continue seizure, fall, and aspiration precautions. -Continued close monitoring of electrolytes and replace as needed. Hypokalemia Most recent potassium was 3.1 and patient received an additional dose of K-Dur 40 mEq. We will continue to monitor with repeat morning labs and replace abnormal electrolyte values as indicated based upon these findings. Current morning labs pending. Nicotine dependence Recommend smoking cessation and continue with nicotine patch 21 mg daily. Data and imaging reviewed: Vital signs reviewed. Blood pressure 143/84, heart rate 98, respiratory rate 20, and SpO2 of 94% on room air. Morning labs pending, will follow-up on results and place additional orders as indicated based upon these findings. CODE STATUS: Full code DVT prophylaxis: Heparin Anticipated discharge date: Clinical course to determine Anticipated discharge place: Clinical course to determine Patient was seen independently by Nurse Practitioner. This document was prepared using [employer] dictation software. Please allow for errors in sybase developer while rare they do occur. Rafi Arguello NP rendered care for this patient independently, reviewed the fi ndings and plan as documented in the note above. I did not physically speak with or examine the patient on this date. Objective - Vital Signs Vital signs: Vital Signs Temp 97.9 F 07/20/23 16:00 Pulse 98 07/21/23 04:00 Resp 20 07/21/23 04:00 BP 143/84 07/21/23 04:00 Pulse Ox 94 L 07/21/23 04:00 FiO2 Intake & Output 07/20/23 07/21/23 07/21/23 18:59 06:59 18:59 Intake Total 720 Output Total 200 Balance 520 Weight 107.5 kg Intake: Oral 720 Output: Urine 200 Other: Voiding Method Toilet Toilet Urinal Urinal - Labs CBC & Chem 7: 07/20/23 07:42 07/21/23 10:10 Labs: Abnormal Lab Results - Last 24 Hours (Table) 07/20/23 07/20/23 07/20/23 Range/Units 09:15 11:28 16:42 Sodium 130 L (137-145) mmol/L Potassium 3.1 L (3.5-5.1) mmol/L Chloride 91 L (98-107) mmol/L Carbon Dioxide 34 H (22-30) mmol/L BUN 30 H (9-20) mg/dL Creatinine 1.29 H (0.66-1.25) mg/dL Glucose 179 H (74-99) mg/dL POC Glucose (mg/dL) 199 H 264 H (70-110) mg/dL 07/20/23 07/21/23 Range/Units 20:32 06:06 Sodium (137-145) mmol/L Potassium (3.5-5.1) mmol/L Chloride (98-107) mmol/L Carbon Dioxide (22-30) mmol/L BUN (9-20) mg/dL Creatinine (0.66-1.25) mg/dL Glucose (74-99) mg/dL POC Glucose (mg/dL) 186 H 174 H (70-110) mg/dL
[2023-07-21 11:43] LABS: Glucose,Whole Blood 164 mg/dL (70-110)
[2023-07-21] MEDS: ESCITALOPRAM 20 MG TAB PO SCH (12:46)
[2023-07-21] MEDS: busPIRone HCl 10 MG TAB PO SCH (12:47)
[2023-07-21] MEDS: POTASSIUM CHLORIDE ER 20 MEQ TAB.ER PO STA (12:47)
--- NOTE | 2023-07-21 13:10 | P.PN ---
Subjective Progress Note Date: 07/21/23 HISTORY OF PRESENT ILLNESS: This is a 58-year-old male with a past medical history significant for syncope, hypertension, anxiety, nicotine dependence, and alcohol abuse. Patient follows in the office with Dr. Houston. We have been asked to see the patient in consultation for tilt table testing and syncope. Patient examined at the bedside. Patient was supposed to have a tilt table test completed yesterday but he was sent to the ER by Dr. Ovalle as he was extremely dizzy. He states that he felt shaky before the procedure. His tilt table was cancelled. Patient reports a chronic cough from smoking. He also reports shortness of breath with ambulation. He reports night sweats. He has had issues with syncope and dizziness in the past. He states his legs get really shaking and then he falls to the floor. This seems to happen most of the time after a coughing spell. Blood pressure has remained stable with no episodes of hypotension. He reports recent increase in his sleeping medication and also his anxiety medication. Patient reports having a recent stress test which was normal. This is also documented in cardiology office records by Dr. Houston. However, the actual report is not available at this time. He also had a carotid US in the office which did not reveal any significant stenosis. 07/20/2023 Patient examined this morning at the bedside. Patient is sleeping this morning. He did receive IV ativan overnight. Patient currently denies chest pain or pressure. He denies shortness of breath. Blood pressure remains elevated with a systolic between [id number]. He reports improvement in his dizziness. Patient remains hyponatremic with a sodium level of 129. Potassium 3.3. Creatinine has improved to 1.29. Echocardiogram completed revealing ejection fraction 60 to 65%, mild pulmonary hypertension, mild TR. 07/21/2023 He is still having some dizziness when getting up to the bathroom however believes this is better overall. Denies any chest pain or pressure. No shortness of breath. Sodium 131, potassium 3.2, creatinine stable 1.25. PHYSICAL EXAM: VITAL SIGNS: Reviewed. GENERAL: Well-developed in no acute distress. HEENT: Head is normocephalic. Pupils are equal, round. Sclerae anicteric. Mucous membranes of the mouth are moist. Neck supple. LUNGS: Respirations even and unlabored. Lungs essentially clear to auscultation bilaterally. HEART: Regular rate and rhythm. S1 and S2 heard. ABDOMEN: Soft. Nondistended. Nontender. EXTREMITIES: Normal range of motion. No clubbing or cyanosis. Peripheral pulses intact. No lower extremity edema NEUROLOGIC: Sleeping awakens to voice. Oriented x 3. ASSESSMENT: Dizziness History of syncope Hyponatremia Elevated troponin, flat, not suggestive of acute coronary syndrome Acute kidney injury History of alcohol abuse, patient drinking 1 pint per day Hypokalemia Nicotine dependence Hyperglycemia, hemoglobin A1c 6.4 PLAN: Lisinopril remains on hold secondary to ZAID and dizziness. Okay for SBP to run 140-150 at this time. Smoking cessation advised. Abstinence from alcohol encouraged. Continue telemetry monitoring. Further recommendations pending patient course. Nurse practitioner note has been reviewed by physician. Signing provider agrees with the documented findings, assessment, and plan of care documented by PRODUCTION PLANNING MANAGER as a scribe. Objective - Vital Signs Vital signs: Vital Signs Temp 97.9 F 07/20/23 16:00 Pulse 98 07/21/23 04:00 Resp 20 07/21/23 04:00 BP 143/84 07/21/23 04:00 Pulse Ox 94 L 07/21/23 04:00 FiO2 Intake & Output 07/20/23 07/21/23 07/21/23 18:59 06:59 18:59 Intake Total 720 Output Total 200 Balance 520 Weight 107.5 kg Intake: Oral 720 Output: Urine 200 Other: Voiding Method Toilet Toilet Urinal Urinal - Labs CBC & Chem 7: 07/20/23 07:42 07/21/23 10:10 Labs: Abnormal Lab Results - Last 24 Hours (Table) 07/20/23 07/20/23 07/21/23 Range/Units 16:42 20:32 06:06 Sodium (137-145) mmol/L Potassium (3.5-5.1) mmol/L Chloride (98-107) mmol/L Carbon Dioxide (22-30) mmol/L BUN (9-20) mg/dL Glucose (74-99) mg/dL POC Glucose (mg/dL) 264 H 186 H 174 H (70-110) mg/dL 07/21/23 07/21/23 Range/Units 10:10 11:30 Sodium 131 L (137-145) mmol/L Potassium 3.2 L (3.5-5.1) mmol/L Chloride 94 L (98-107) mmol/L Carbon Dioxide 31 H (22-30) mmol/L BUN 22 H (9-20) mg/dL Glucose 167 H (74-99) mg/dL POC Glucose (mg/dL) 164 H (70-110) mg/dL
[2023-07-21 16:56] LABS: Glucose,Whole Blood 194 mg/dL (70-110)
[2023-07-21 19:59] LABS: Glucose,Whole Blood 324 mg/dL (70-110)
[2023-07-22 06:00] LABS: Glucose,Whole Blood 189 mg/dL (70-110)
[2023-07-22 10:09] LABS: African American GFR (CKD) 71 (>60 ml/min/1.73 sqM); Anion Gap 6 mmol/L; Blood Urea Nitrogen 21 mg/dL (9-20); Calcium 9.2 mg/dL (8.4-10.2); Carbon Dioxide 28 mmol/L (22-30); Chloride 95 mmol/L (98-107); Glucose 316 mg/dL (74-99); Magnesium 1.7 mg/dL (1.6-2.3); Non-African American GFR(CKD) 61 (>60 ml/min/1.73 sqM); Potassium 3.8 mmol/L (3.5-5.1); Sodium 129 mmol/L (137-145)
[2023-07-22 11:34] LABS: Glucose,Whole Blood 268 mg/dL (70-110)
--- NOTE | 2023-07-22 11:45 | P.PN ---
Subjective Progress Note Date: 07/22/23 Hospital Course: Patient is a very pleasant 58-year-old male with a past medical history of hypertension, COPD with continued nicotine dependence, and daily alcohol use drinking 1 pint of alcohol daily every day for at least the last 10 months. He presented to the emergency department secondary to severe dizziness. He was sent by Dr. Ovalle with [facility] after becoming severely dizzy during tilt table testing. He underwent full evaluation upon arrival to our facility. Vital signs upon arrival show blood pressure 107/73, heart rate 82, respiratory rate 20, temp 97.8 F, and SpO2 of 98% on room air. EKG was completed showing normal sinus rhythm at 77 bpm with prominent Q waves in leads II, aVF, V5 and V6. Which appears to be unchanged when compared to EKG completed 03/20/2015 upon personal review, comparison, and interpretation.. est x-ray completed negative for acute cardiopulmonary process. Labs completed and reviewed. CBC showing macrocytosis with MCV of 110.2 and MCH of 37.9. BMP showing acute hyponatremia with sodium of 123, hypokalemia with potassium of 3.3, and high anion gap metabolic alkalosis with hypochloremia with chloride of 79, hypercarbia with bicarb of 32 and anion gap of 12 as well as acute kidney injury with BUN of 52, creatinine 2.28, and GFR of 31. Blood glucose 193. Lactic acid was 1.2. Magnesium 2.1. Liver profile showing elevated AST of 71 otherwise normal findings. Troponin was elevated at 0.043. Patient was admitted under our services with consultation to cardiology and nephrology. Physical exam: Patient reports experiencing dizziness dizziness only upon stawhile trying to sleep last night and continued dizziness upon standing and walking. He continues to deny having any headache, chest pain, palpitations, shortness of breath, or experiencing any numbness/tingling in his extremities. Vital signs reviewed and stable. General: Nontoxic, no distress and appears stated age. Derm: Skin warm and dry, normal coloration for ethnicity. Head: Atraumatic, normocephalic and symmetric. Eyes: EOMs intact, no lid lag, and anicteric sclera. Pupils PERRLA Mouth: no lip lesions, mucus membranes moist Cardiovascular: regular rate and rhythm with normal S1S2, no murmur, positive posterior tibial pulses bilaterally, and cap refill < 2 seconds. Lungs: Respirations even, regular, and unlabored on room air. Lungs CTA bilaterally, no rhonchi, no rales, no wheezing, and no accessory muscle usage. Abdominal: soft, nontender to palpation, no guarding, no appreciable organomegaly Ext: ROM intact. No gross muscle atrophy, no edema. Neuro: Speech clear, face symmetrical and CN II-XII grossly intact with no noted focal neuro deficits. GCS 15. Slight resting tremors noted to bilateral hands. Psych: Alert and oriented to person, place, time, and situation. Appropriate and pleasant affect. Assessment and Plan of Care: Intractable dizziness, improved Elevated troponins -Cardiology following, decreased metoprolol to 25 mg daily reviewed documentation in chart -Telemetry monitoring -Cardiac diet -Continue 81 mg daily. -Patient to continue daily medication regimen with metoprolol succinate 25 mg daily. Lisinopril/hydrochlorothiazide held secondary to hyponatremia and ZAID. -Echocardiogram showing preserved EF of 60-65% with severely increased septal wall thickness and mild right ventricular dilation with mild pulmonary hypertension -Fall precautions in place. Hyponatremia, slowly improving with gentle IV fluid hydration High anion gap metabolic alkalosis, improved with IV fluid hydration Acute kidney injury, slowly improving with IV fluid hydration -Hyponatremia likely due to dehydration with daily alcohol abuse in addition to thiazide diuretic use. -TSH normal findings at 2.440.serum osmolality was normal at 280. Urine osmolality 525, and random urine sodium was 54. -Nephrology following and discussed plan of care with Dr. Franklin. -Strict I's and O's -Patient to remain on telemetry monitoring with fall precautions and seizure precautions -Continue to hold lisinopril/hydrochlorothiazide. Alcohol withdraw in active alcoholic -Continue monitoring of CIWA scores and patient to be medicated with Ativan 0.5 mg every 4 hours as needed for CIWA score of 4-5, Ativan 1 mg every 4 hours for CIWA score of 6-7, Ativan 2 mg every 3 hours CIWA score of 8-9, and Ativan 2 mg every 2 hours forr CIWA score of 10 or greater. Current CIWA 4 -Continue thiamine 100 mg daily, Multivitamin daily and Folate 1 mg daily -Continue seizure, fall, and aspiration precautions. -Continued close monitoring of electrolytes and replace as needed. Hypomagnesemia Hypokalemia, resolved Magnesium 1.7. Orders placed for Mag-Ox 400 milligrams p.o. x 1 dose. Potassium 3.9. We will continue to monitor with repeat morning labs and replace abnormal electrolyte values as indicated based upon these findings. Current morning labs pending. Nicotine dependence Recommend smoking cessation and continue with nicotine patch 21 mg daily. Data and imaging reviewed: Vital signs reviewed. Blood pressure 149/83, heart rate 118, respiratory rate 18, temp 97.8 F, and SpO2 of 95% on room air. Morning labs reviewed. Sodium 129, potassium 3.8, chloride 95, bicarb 28, anion gap 6 and renal function showing BUN of 21, creatinine 1.29, GFR of 61. Magnesium was 1.7. CODE STATUS: Full code DVT prophylaxis: Heparin Anticipated discharge date: Clinical course to determine Anticipated discharge place: Clinical course to determine Patient was seen independently by Nurse Practitioner. This document was prepared using [employer] dictation software. Please allow for errors in assistant controller while rare they do occur. Rafi Arguello NP rendered care for this patient independently, reviewed the findings and plan as documented in the note above. I did not physically speak with or examine the patient on this date. Objective - Vital Signs Vital signs: Vital Signs Temp 98.2 F 07/21/23 20:45 Pulse 96 07/22/23 04:00 Resp 16 07/22/23 04:00 BP 126/86 07/22/23 04:00 Pulse Ox 96 07/22/23 04:00 FiO2 Intake & Output 07/21/23 07/22/23 07/22/23 18:59 06:59 18:59 Intake Total 600 240 Output Total 200 Balance 600 40 Intake: Oral 600 240 Output: Urine 200 Other: Voiding Method Toilet Toilet Urinal Urinal # Voids 1 - Labs CBC & Chem 7: 07/23/23 07:02 07/23/23 15:48 Labs: Abnormal Lab Results - Last 24 Hours (Table) 07/21/23 07/21/23 07/21/23 Range/Units 10:10 11:30 16:51 Sodium 131 L (137-145) mmol/L Potassium 3.2 L (3.5-5.1) mmol/L Chloride 94 L (98-107) mmol/L Carbon Dioxide 31 H (22-30) mmol/L BUN 22 H (9-20) mg/dL Glucose 167 H (74-99) mg/dL POC Glucose (mg/dL) 164 H 194 H (70-110) mg/dL 07/21/23 07/22/23 Range/Units 19:56 05:56 Sodium (137-145) mmol/L Potassium (3.5-5.1) mmol/L Chloride (98-107) mmol/L Carbon Dioxide (22-30) mmol/L BUN (9-20) mg/dL Glucose (74-99) mg/dL POC Glucose (mg/dL) 324 H 189 H (70-110) mg/dL
--- NOTE | 2023-07-22 11:53 | P.PN ---
Subjective Patient is seen in follow-up for acute kidney injury and hyponatremia. Renal function improved from admission. Sodium level slightly lower at 129. Off IV fluids. Oral intake is good. No vomiting or diarrhea. Vital signs are stable. General: No acute distress. HEENT: Head exam is unremarkable. LUNGS: No audible rhonchi or wheezes. HEART: Rate and Rhythm are regular. ABDOMEN: Nontender. EXTREMITITES: No edema. Objective - Vital Signs Vital signs: Vital Signs Temp 97.8 F 07/22/23 09:24 Pulse 118 H 07/22/23 09:24 Resp 18 07/22/23 09:24 BP 149/83 07/22/23 09:24 Pulse Ox 95 07/22/23 09:24 FiO2 Intake & Output 07/21/23 07/22/23 07/22/23 18:59 06:59 18:59 Intake Total 600 240 Output Total 200 Balance 600 40 Intake: Oral 600 240 Output: Urine 200 Other: Voiding Method Toilet Toilet Urinal Urinal # Voids 1 - Labs CBC & Chem 7: 07/20/23 07:42 07/22/23 09:29 Labs: Abnormal Lab Results - Last 24 Hours (Table) 07/21/23 07/21/23 07/22/23 Range/Units 16:51 19:56 05:56 Sodium (137-145) mmol/L Chloride (98-107) mmol/L BUN (9-20) mg/dL Creatinine (0.66-1.25) mg/dL Glucose (74-99) mg/dL POC Glucose (mg/dL) 194 H 324 H 189 H (70-110) mg/dL 07/22/23 07/22/23 Range/Units 09:29 11:32 Sodium 129 L (137-145) mmol/L Chloride 95 L (98-107) mmol/L BUN 21 H (9-20) mg/dL Creatinine 1.29 H (0.66-1.25) mg/dL Glucose 316 H (74-99) mg/dL POC Glucose (mg/dL) 268 H (70-110) mg/dL Assessment and Plan Plan: Assessment: 1. Acute kidney injury secondary to vasomotor nephropathy improving with IV fluids. Creatinine peaked at 2.31 this admission and is stable at 1.29 today. No hydronephrosis noted on kidney ultrasound. 2. Hypovolemic hyponatremia worsened with the use of thiazide diuretic. Urine sodium 54 and urine osmolality 525. TSH normal. 3. Hypokalemia from poor intake and diuretic use. 4. Benign hypertension. Stable. 5. Alcohol abuse. Plan: Encouraged oral intake. Maintain fluid restriction. Samsca 7.5 mg once today. Avoid nephrotoxins. Avoid thiazide diuretics in future. Advised patient to maintain fluid restriction of less than 40 to 45 ounces per day and to increase protein intake. Repeat BMP and magnesium level 2 to 3 days postdischarge. Follow-up outpatient in 1 to 2 weeks.
[2023-07-22] MEDS: TOLVAPTAN 15 MG TABLET PO ONE (12:21)
[2023-07-22] MEDS: MAGNESIUM OXIDE 400 MG TAB PO STA (12:21)
[2023-07-22 16:16] LABS: Glucose,Whole Blood 303 mg/dL (70-110)
[2023-07-22] MEDS: hydrALAZINE HCL 50 MG TAB PO SCH (16:48)
[2023-07-22 20:10] LABS: Glucose,Whole Blood 250 mg/dL (70-110)
--- NOTE | 2023-07-22 22:58 | PN ---
PROGRESS NOTE SUBJECTIVE: Mr. Will is a gentleman who has a history of hypertension. There was a question of neurocardiogenic syncope type picture. He was going for a tilt study, then developed dizziness and was hospitalized. His dizziness seems to have improved. He also developed acute kidney injury. He seems to have been dehydrated. The kidney function has improved. Blood pressure however is still elevated. I am recommending that we place him on hydralazine 50 mg t.i.d. OBJECTIVE: VITAL SIGNS: Stable. NECK: No JVD. CARDIAC: S1, S2 heard normally, but distantly short systolic murmur. LUNGS: Revealed decent air entry. ABDOMEN: Unchanged. LOWER EXTREMITIES: Unchanged. PLAN: To increase activity, hydralazine 50 mg t.i.d. to optimize BP control and possible discharge tomorrow. MMODL / IJN: [id number] /
[2023-07-23 05:49] LABS: Glucose,Whole Blood 205 mg/dL (70-110)
[2023-07-23 08:03] LABS: HCT 41.2 % (39.0-53.0); MCH 38.3 pg (25.0-35.0); MCHC 33.9 g/dL (31.0-37.0); MCV 112.9 fL (80.0-100.0); Macrocytosis Marked; Mean Platelet Volume 7.7; Platelet Count 235 k/uL (150-450); RBC 3.65 m/uL (4.30-5.90); RDW 13.1 % (11.5-15.5); WBC 4.2 k/uL (3.8-10.6)
[2023-07-23 08:30] LABS: ALT 64 U/L (4-49); AST 57 U/L (17-59); African American GFR (CKD) 79 (>60 ml/min/1.73 sqM); Albumin 3.1 g/dL (3.5-5.0); Alkaline Phosphatase 81 U/L (38-126); Anion Gap 7 mmol/L; Blood Urea Nitrogen 17 mg/dL (9-20); Carbon Dioxide 28 mmol/L (22-30); Chloride 98 mmol/L (98-107); Glucose 161 mg/dL (74-99); Magnesium 1.7 mg/dL (1.6-2.3); Non-African American GFR(CKD) 68 (>60 ml/min/1.73 sqM); Potassium 2.8 mmol/L (3.5-5.1); Sodium 133 mmol/L (137-145); Total Bilirubin 0.5 mg/dL (0.2-1.3); Total Protein 5.6 g/dL (6.3-8.2)
[2023-07-23 10:36] VITALS: RESP 17; TEMP 98.2
--- NOTE | 2023-07-23 10:48 | P.PN ---
Subjective Patient is seen in follow-up for acute kidney injury and hyponatremia. Renal function improved from admission. Sodium level 133. Off IV fluids. Oral intake is good. No vomiting or diarrhea. Vital signs are stable. General: No acute distress. HEENT: Head exam is unremarkable. LUNGS: No audible rhonchi or wheezes. HEART: Rate and Rhythm are regular. ABDOMEN: Nontender. EXTREMITITES: No edema. Objective - Vital Signs Vital signs: Vital Signs Temp 98.2 F 07/23/23 09:59 Pulse 91 07/23/23 09:59 Resp 17 07/23/23 09:59 BP 135/88 07/23/23 09:59 Pulse Ox 97 07/23/23 09:59 FiO2 Intake & Output 07/22/23 07/23/23 07/23/23 18:59 06:59 18:59 Intake Total 1560 120 Output Total 200 Balance 1560 -80 Intake: Oral 1560 120 Output: Urine 200 Other: Voiding Method Toilet Toilet Toilet Urinal Urinal Urinal # Bowel Movements 1 - Labs CBC & Chem 7: 07/23/23 07:02 07/23/23 07:02 Labs: Abnormal Lab Results - Last 24 Hours (Table) 07/22/23 07/22/23 07/22/23 Range/Units 11:32 16:12 20:08 RBC (4.30-5.90) m/uL MCV (80.0-100.0) fL MCH (25.0-35.0) pg Macrocytosis Sodium (137-145) mmol/L Potassium (3.5-5.1) mmol/L Glucose (74-99) mg/dL POC Glucose (mg/dL) 268 H 303 H 250 H (70-110) mg/dL ALT (4-49) U/L Total Protein (6.3-8.2) g/dL Albumin (3.5-5.0) g/dL 07/23/23 07/23/23 07/23/23 Range/Units 05:47 07:02 07:02 RBC 3.65 L (4.30-5.90) m/uL MCV 112.9 H (80.0-100.0) fL MCH 38.3 H (25.0-35.0) pg Macrocytosis Marked A Sodium 133 L (137-145) mmol/L Potassium 2.8 L (3.5-5.1) mmol/L Glucose 161 H (74-99) mg/dL POC Glucose (mg/dL) 205 H (70-110) mg/dL ALT 64 H (4-49) U/L Total Protein 5.6 L (6.3-8.2) g/dL Albumin 3.1 L (3.5-5.0) g/dL Assessment and Plan Plan: Assessment: 1. Acute kidney injury secondary to vasomotor nephropathy improving with IV fluids. Creatinine peaked at 2.31 this admission and is stable at 1.18 today. No hydronephrosis noted on kidney ultrasound. 2. Hypovolemic hyponatremia worsened with the use of thiazide diuretic. Urine sodium 54 and urine osmolality 525. TSH normal. Better. 3. Hypokalemia from poor intake and diuretic use. 4. Benign hypertension. Stable. 5. Alcohol abuse. Plan: Encouraged oral intake. Maintain fluid restriction. Replace potassium. Avoid nephrotoxins. Avoid thiazide diuretics in future. Advised patient to maintain fluid restriction of less than 40 to 45 ounces per day and to increase protein intake. Repeat BMP and magnesium level 2 to 3 days postdischarge. Follow-up outpatient in 1 to 2 weeks.
[2023-07-23] MEDS: POTASSIUM CHLORIDE ER 20 MEQ TAB.ER PO SCH (10:57)
[2023-07-23 11:49] LABS: Glucose,Whole Blood 174 mg/dL (70-110)
[2023-07-23 16:03] VITALS: BP 117/69; PULSE 107
[2023-07-23 17:20] LABS: Glucose,Whole Blood 222 mg/dL (70-110)
--- NOTE | 2023-07-23 17:34 | P.DS ---
Providers Date of admission: 07/18/23 13:44 Expected date of discharge: 07/23/23 Attending physician: Randall Flores MD Consults: 07/18/23 13:43 Consult Physician Routine Consulting Provider: Johnie Ovalle Consult Reason/Comments: tilt table Do you want consulting provider notified?: Yes 07/18/23 13:59 Consult Physician Routine Consulting Provider: Cierra Lombardi Consult Reason/Comments: acute hyponatremia, zaid Do you want consulting provider notified?: Yes Primary care physician: [facility] Course: Discharge Diagnosis: Intractable dizziness, improved Elevated troponins Hyponatremia, improved with gentle IV fluid hydration High anion gap metabolic alkalosis, resolved Acute kidney injury, resolved 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 Hospital Course: Patient is a very pleasant 58-year-old male with a past medical history of hypertension, COPD with continued nicotine dependence, and daily alcohol use drinking 1 pint of alcohol daily every day for at least the last 10 months. He presented to the emergency department secondary to severe dizziness. He was sent by Dr. Ovalle with [facility] after becoming severely dizzy during tilt table testing. He underwent full evaluation upon arrival to our facility. Vital signs upon arrival show blood pressure 107/73, heart rate 82, respiratory rate 20, temp 97.8 F, and SpO2 of 98% on room air. EKG was completed showing normal sinus rhythm at 77 bpm with prominent Q waves in leads II, aVF, V5 and V6. Which appears to be unchanged when compared to EKG completed 03/20/2015 upon personal review, comparison, and interpretation.. Chest x-ray completed negative for acute cardiopulmonary process. Labs completed and reviewed. CBC showing macrocytosis with MCV of 110.2 and MCH of 37.9. BMP showing acute hyponatremia with sodium of 123, hypokalemia with potassium of 3.3, and high anion gap metabolic alkalosis with hypochloremia with chloride of 79, hypercarbia with bicarb of 32 and anion gap of 12 as well as acute kidney injury with BUN of 52, creatinine 2.28, and GFR of 31. Blood glucose 193. Lactic acid was 1.2. Magnesium 2.1. Liver profile showing elevated AST of 71 otherwise normal findings. Troponin was elevated at 0.043. Patient was admitted under our services with consultation to cardiology and nephrology.Echocardiogram showing preserved EF of 60-65% with severely increased septal wall thickness and mild right ventricular dilation with mild pulmonary hypertension. Cardiology made medication changes. Patient's metoprolol was decreased to 25 mg daily and patient was started on hydralazine 50 mg 3 times daily. Electrolyte abnormalities were replaced. Patient was evaluated by sql data architect secondary to hyponatremia, ZAID and electrolyte abnormalities. Patient being discharged home on folic acid, potassium supplement, magnesium oxide, and thiamine. Patient to have repeat BMP and magnesium completed in 3 days with results to be sent to PCP and wildfire prevention specialist upon discharge. Patient cleared from cardiac perspective for discharge at this time. Patient is medically stable at this time reports significant improvement of dizziness and denies any other complaints. Patient strongly advised to avoid any and all alc ohol use. Prescription sent to pharmacy. Patient to follow-up outpatient with PCP in 1 to 2 days, cardiology in 1 week, and nephrology in 1 week. Prescription sent for repeat BMP and magnesium levels. Physical exam: Vital signs reviewed and stable. General: Nontoxic, no distress and appears stated age. Derm: Skin warm and dry, normal coloration for ethnicity. Head: Atraumatic, normocephalic and symmetric. Eyes: EOMs intact, no lid lag, and anicteric sclera. Pupils PERRLA Mouth: no lip lesions, mucus membranes moist Cardiovascular: regular rate and rhythm with normal S1S2, no murmur, positive posterior tibial pulses bilaterally, and cap refill < 2 seconds. Lungs: Respirations even, regular, and unlabored on room air. Lungs CTA bilatera lly, no rhonchi, no rales, no wheezing, and no accessory muscle usage. Abdominal: soft, nontender to palpation, no guarding, no appreciable organomegaly Ext: ROM intact. No gross muscle atrophy, no edema. Neuro: Speech clear, face symmetrical and CN II-XII grossly intact with no noted focal neuro deficits. GCS 15. Psych: Alert and oriented to person, place, time, and situation. Appropriate and pleasant affect. A total of 35 minutes of time were spent preparing this complex discharge summary. Pt was discharged on 07/23/2023 at 5:28 PM. Patient was seen independently by Nurse Practitioner. This document was prepared using [employer] dictation software. Please allow for errors in pan pusher while rare they do occur. Patient Condition at Discharge: Stable Plan - Discharge Summary Discharge Rx Participant: No New Discharge Prescriptions: New Folic Acid 1 mg PO DAILY 30 Days #30 tab Potassium Chloride ER [K-Dur 10] 10 meq PO DAILY 30 Days #30 tab Magnesium Oxide [Mag-Ox] 400 mg PO DAILY 30 Days #30 tab Metoprolol Succinate (ER) [Toprol XL] 25 mg PO DAILY 30 Days #30 tab Thiamine [Vitamin B-1] 100 mg PO DAILY 30 Days #30 tab hydrALAZINE HCL [Apresoline] 50 mg PO TID 30 Days #90 tab Aspirin 81 mg PO DAILY 30 Days #30 tab Continue busPIRone HCL 10 mg PO DAILY Meloxicam [Mobic] 15 mg PO DAILY Escitalopram [Lexapro] 20 mg PO DAILY Omeprazole 40 mg PO DAILY Albuterol Inhaler [Ventolin Hfa Inhaler] 2 puff INHALATION RT-Q4H PRN PRN Reason: Shortness Of Breath traZODone HCL [Desyrel] 200 mg PO HS PRN PRN Reason: sleep LORazepam [Ativan] 1 mg PO DIRECTED PRN PRN Reason: anxiety/before procedures Discontinued Metoprolol Succinate [Toprol XL] 50 mg PO DAILY Lisinopril-Hctz 10-12.5 mg [Zestoretic 10-12.5] 1 tab PO DAILY Discharge Medication List Albuterol Inhaler [Ventolin Hfa Inhaler] 2 puff INHALATION RT-Q4H PRN 07/17/23 [History] Escitalopram [Lexapro] 20 mg PO DAILY 07/17/23 [History] Meloxicam [Mobic] 15 mg PO DAILY 07/17/23 [History] Omeprazole 40 mg PO DAILY 07/17/23 [History] busPIRone HCL 10 mg PO DAILY 07/17/23 [History] LORazepam [Ativan] 1 mg PO DIRECTED PRN 07/18/23 [History] traZODone HCL [Desyrel] 200 mg PO HS PRN 07/18/23 [History] Aspirin 81 mg PO DAILY 30 Days #30 tab 07/23/23 [Rx] Folic Acid 1 mg PO DAILY 30 Days #30 tab 07/23/23 [Rx] Magnesium Oxide [Mag-Ox] 400 mg PO DAILY 30 Days #30 tab 07/23/23 [Rx] Metoprolol Succinate (ER) [Toprol XL] 25 mg PO DAILY 30 Days #30 tab 07/23/23 [Rx] Potassium Chloride ER [K-Dur 10] 10 meq PO DAILY 30 Days #30 tab 07/23/23 [Rx] Thiamine [Vitamin B-1] 100 mg PO DAILY 30 Days #30 tab 07/23/23 [Rx] hydrALAZINE HCL [Apresoline] 50 mg PO TID 30 Days #90 tab 07/23/23 [Rx] Follow up Appointment(s)/Referral(s): Yoav Álvarez DO [STAFF PHYSICIAN] - 1 Week Fritz Mace DO [Primary Care Provider] - 1-2 days Duarte Franklin DO [STAFF PHYSICIAN] - 1 Week Ambulatory/Diagnostic Orders: Basic Metabolic Panel [LAB.AMB] Time Frame: 3 Days, Location: None Selected Magnesium [LAB.AMB] Location: None Selected Activity/Diet/Wound Care/Special Instructions: Activity: As tolerated. Take breaks as needed. Diet: Heart healthy and carb consistent diet. Avoid salts, or foods with hidden salts such as canned or boxed foods and frozen dinners. Extra salt makes your heart work harder and traps the fluid in your body for longer. Special Instructions: Take all of your medications as directed and remember to keep all of your doctor's appointments and follow-up as needed. Strongly recommend cessation of any and all alcohol use. Thank you for allowing us to participate in your care, it was truly a pleasure having you for our patient!!! Discharge/Stand Alone Forms: AA Meetings [place], Outpatient Counseling, In Substance Abuse Facilities
[2023-07-24] MEDS ORDERED: POTASSIUM CHLORIDE ER 10 MEQ TAB.ER.PRT PO SCH (09:00)
[2023-07-24] MEDS ORDERED: MAGNESIUM OXIDE 400 MG TAB PO SCH (09:00)
== END 2023-07-23 18:22 | disposition home or self-care (01) | DRG 640 ==
LOC: EC 10:58 → 3SCARD 13:44
PROVIDERS: ADMIT Internal Medicine; ATTEND Internal Medicine
DX: E87.1 Hypo-osmolality and hyponatremia (principal); N17.0 Acute kidney failure with tubular necrosis; F10.239 Alcohol dependence with withdrawal, unspecified; H57.9 Unspecified disorder of eye and adnexa; R79.89 Other specified abnormal findings of blood chemistry; F41.9 Anxiety disorder, unspecified; K70.10 Alcoholic hepatitis without ascites; E87.3 Alkalosis; E86.1 Hypovolemia; E87.8 Other disorders of electrolyte and fluid balance, not elsewhere classified; E83.42 Hypomagnesemia; E86.0 Dehydration; E87.6 Hypokalemia; F17.210 Nicotine dependence, cigarettes, uncomplicated; I10 Essential (primary) hypertension; J44.9 Chronic obstructive pulmonary disease, unspecified; Z71.6 Tobacco abuse counseling; I27.20 Pulmonary hypertension, unspecified; H91.90 Unspecified hearing loss, unspecified ear; Z88.2 Allergy status to sulfonamides; Z28.21 Immunization not carried out because of patient refusal; Z79.1 Long term (current) use of non-steroidal anti-inflammatories (NSAID); Z79.899 Other long term (current) drug therapy; Z82.49 Family history of ischemic heart disease and other diseases of the circulatory system
CPT/HCPCS: 36415; 71045; 76770; 80048; 80053; 81001; 83036; 83605; 83735; 83930; 83935; 84132; 84300; 84443; 84484; 84560; 85025; 85027; 85610; 85730; 93005; 93306; 99285

== ENCOUNTER → 2023-07-18 | Day surgery (SDC) | payer BC ==
[~2023-07-18] MED LIST: SODIUM CHLORIDE 0.9% 1,000 ML IV SCH
--- NOTE | 2023-07-18 16:23 | P.EPPROC ---
- EP Procedure Note Electrophysiology Procedure Note: Tilt table test canceled Patient was extremely dizzy and was sent to the ER
== END ==
LOC: CATHEP 10:14
PROVIDERS: ATTEND Internal Medicine Clinical Cardiac Electrophysiology
DX: Z53.8 Procedure and treatment not carried out for other reasons (principal); R55 Syncope and collapse; I10 Essential (primary) hypertension; M19.90 Unspecified osteoarthritis, unspecified site; F17.210 Nicotine dependence, cigarettes, uncomplicated; Z79.899 Other long term (current) drug therapy; Z79.1 Long term (current) use of non-steroidal anti-inflammatories (NSAID)

== ENCOUNTER → 2023-09-03 | Outpatient (CLI) | payer OTHER ==
--- NOTE | 2023-09-03 14:27 | XR ---
EXAMINATION TYPE: XR knee complete bilateral DATE OF EXAM: 09/03/2023 2:04 PM CLINICAL INDICATION:Male, 58 years old with history of [id number], [id number], [id number], [id number]; [facility] COMPARISON: None. TECHNIQUE: XR knee complete bilateral; examined in Frontal, lateral and oblique projections. FINDINGS: No evidence of any acute osseous pathology, soft tissue swelling, or joint effusion is no sheridan. Tricompartmental osteophyte formation involving the femoral condyles, tibial plateau and patella . Mild joint space narrowing.A fabella is present. IMPRESSION: 1. No acute osseous pathology. 2. Mild tricompartmental osteoarthritic changes.
--- NOTE | 2023-09-03 14:28 | XR ---
EXAMINATION TYPE: XR shoulder complete BILAT DATE OF EXAM: 09/03/2023 2:05 PM CLINICAL INDICATION:Male, 58 years old with history of [id number], [id number], [id number], [id number]; [facility] COMPARISON: None TECHNIQUE: XR shoulder complete BILAT; examined in AP, internally rotated and scapular Y projections. FINDINGS: No evidence of acute osseous pathology, joint dislocation, or soft tissue swelling. The remaining po rtions of the visualized chest are unremarkable. Mild degeneration changes of the acromion, distal c lavicle with osteophyte formation bilaterally. There is osteophyte formation of the glenoid and humer al head. There is joint space narrowing of glenohumeral joint IMPRESSION: 1. No acute osseous pathology. 2. Moderate bilateral shoulder osteoarthrosis.
== END | disposition home or self-care (01) ==
LOC: RADXRMAIN 13:29
PROVIDERS: ATTEND Family Medicine
DX: M19.011 Primary osteoarthritis, right shoulder (principal); M19.012 Primary osteoarthritis, left shoulder; M25.561 Pain in right knee; M25.562 Pain in left knee

== ENCOUNTER 2023-10-16 16:02 | Inpatient (IN) | payer BC, OTHER ==
[2023-10-16 17:15] LABS: Basophils % (A) 0 %; Eosinophils # (A) 0.1 k/uL (0-0.7); Eosinophils % (A) 1 %; HCT 42.7 % (39.0-53.0); Lymphocytes # (A) 0.7 k/uL (1.0-4.8); Lymphocytes % (A) 13 %; MCH 34.3 pg (25.0-35.0); MCHC 32.8 g/dL (31.0-37.0); MCV 104.6 fL (80.0-100.0); Macrocytosis Slight; Mean Platelet Volume 8.7; Monocytes # (A) 0.3 k/uL (0-1.0); Monocytes % (A) 7 %; Neutrophils # (A) 4.1 k/uL (1.3-7.7); Neutrophils % (A) 78 %; Platelet Count 161 k/uL (150-450); RBC 4.09 m/uL (4.30-5.90); WBC 5.2 k/uL (3.8-10.6)
[2023-10-16 17:22] LABS: ALT 119 U/L (4-49); AST 168 U/L (17-59); African American GFR (CKD) >90 (>60 ml/min/1.73 sqM); Albumin 2.5 g/dL (3.5-5.0); Alkaline Phosphatase 237 U/L (38-126); Anion Gap 13 mmol/L; Blood Urea Nitrogen 8 mg/dL (9-20); Calcium 8.3 mg/dL (8.4-10.2); Carbon Dioxide 29 mmol/L (22-30); Chloride 89 mmol/L (98-107); Glucose 138 mg/dL (74-99); Non-African American GFR(CKD) >90 (>60 ml/min/1.73 sqM); Sodium 131 mmol/L (137-145); Total Bilirubin 2.3 mg/dL (0.2-1.3); Total Protein 4.9 g/dL (6.3-8.2)
[2023-10-16 17:25] LABS: INR 1.1 (<1.2); Partial Thromboplastin Time 23.8 sec (22.0-30.0); Prothrombin Time 11.9 sec (10.0-12.5)
--- NOTE | 2023-10-16 17:29 | ED ---
Weakness HPI - General Chief complaint: Weakness Stated complaint: Dehydration,tenderness/swelling in legs Time Seen by Provider: 10/16/23 17:24 Source: patient, RN notes reviewed, old records reviewed Mode of arrival: ambulatory Limitations: no limitations - History of Present Illness Initial comments: This is a 58-year-old male to ER for evaluation of weakness not feeling well diarrhea persistent diarrhea decreased appetite going on for weeks now. Patient recently started on new vitamin D medication and thinks it might be related to that but really unsure has a significant cough here in the emergency department with generalized aches and pains. Patient cannot catch his breath and at times is short of breath currently here in the ER is persistent coughing fits with shortness of breath MD Complaint: generalized weakness, lack of energy (Significant nausea vomiting and diarrhea), difficulty walking -: days(s) Location: generalized Severity: moderate Severity scale (1-10): 6 Consistency: constant Improves with: none Worsens with: none Context: recent illness, history of similar Associated Symptoms: loss of appetite, nausea/vomiting, shortness of breath - Related Data Home Medications Medication Instructions Recorded Confirmed Albuterol Inhaler [Ventolin Hfa 2 puff INHALATION RT-Q4H PRN 07/17/23 10/16/23 Inhaler] Escitalopram [Lexapro] 20 mg PO DAILY 07/17/23 10/16/23 Meloxicam [Mobic] 15 mg PO DAILY 07/17/23 10/16/23 Omeprazole 40 mg PO DAILY 07/17/23 10/16/23 busPIRone HCL 10 mg PO DAILY 07/17/23 10/16/23 LORazepam [Ativan] 1 mg PO DIRECTED PRN 07/18/23 10/16/23 traZODone HCL [Desyrel] 200 mg PO HS PRN 07/18/23 10/16/23 Cholecalciferol (Vitamin D3) 50 mcg PO DAILY 10/16/23 10/16/23 [Vitamin D3 (50 Mcg = 2000 Iu)] Previous Rx's Medication Instructions Recorded Aspirin 81 mg PO DAILY 30 Days #30 tab 07/23/23 Folic Acid 1 mg PO DAILY 30 Days #30 tab 07/23/23 Metoprolol Succinate (ER) [Toprol 25 mg PO DAILY 30 Days #30 tab 07/23/23 XL] Potassium Chloride ER [K-Dur 10] 10 meq PO DAILY 30 Days #30 tab 07/23/23 Thiamine [Vitamin B-1] 100 mg PO DAILY 30 Days #30 tab 07/23/23 Amoxic-Pot Clav 875-125Mg 1 each PO Q12HR #20 tab 10/19/23 [Augmentin 875-125] Benzonatate [Tessalon Perles] 100 mg PO TID PRN #30 cap 10/19/23 Diphenox-Atrop 2.5-0.025 mg 1 each PO Q6HR PRN #30 tab 10/19/23 [Lomotil] Furosemide [Lasix] 20 mg PO BID@0900,1600 #60 tab 10/19/23 Sucralfate [Carafate] 1 gm PO AC-BID #60 tab 10/19/23 Allergies Allergy/AdvReac Type Severity Reaction Status Date / Time bacitracin Allergy Rapid Verified 10/16/23 19:00 [From Neosporin Heart Rate ([id number])] neomycin Allergy Rapid Verified 10/16/23 19:00 [From Neosporin Heart Rate ([id number])] polymyxin B Allergy Rapid Verified 10/16/23 19:00 [From Neosporin Heart Rate ([id number])] Sulfa (Sulfonamide Allergy Anaphylaxis, Verified 10/16/23 19:00 Antibiotics) racing heart venom-honey bee Allergy Unknown Verified 10/16/23 19:00 [bee venom (honey bee)] Review of Systems ROS Statement: Those systems with pertinent positive or pertinent negative responses have been documented in the HPI. ROS Other: All systems not noted in ROS Statement are negative. Past Medical History Past Medical History: Eye Disorder, Hearing Disorder / Deafness, Hypertension, Memory Impairment Additional Past Medical History / Comment(s): wake up gasping for air History of Any Multi-Drug Resistant Organisms: None Reported Past Surgical History: Orthopedic Surgery Additional Past Surgical History / Comment(s): sinus Past Anesthesia/Blood Transfusion Reactions: No Reported Reaction Past Psychological History: Anxiety Smoking Status: Current every day smoker Past Alcohol Use History: None Reported - Past Family History Mother Family Medical History: No Reported History Father Family Medical History: AFIB, AICD/Pacemaker, Coronary Artery Disease (CAD), CVA/TIA General Exam Limitations: no limitations General appearance: alert, in no apparent distress Head exam: Present: atraumatic, normocephalic, normal inspection Eye exam: Present: normal appearance, PERRL, EOMI. Absent: scleral icterus, conjunctival injection, periorbital swelling ENT exam: Present: normal exam, mucous membranes moist Neck exam: Present: normal inspection. Absent: tenderness, meningismus, lymphadenopathy Respiratory exam: Present: normal lung sounds bilaterally. Absent: respiratory distress, wheezes, rales, rhonchi, stridor Cardiovascular Exam: Present: regular rate, normal rhythm, normal heart sounds. Absent: systolic murmur, diastolic murmur, rubs, gallop, clicks GI/Abdominal exam: Present: soft, normal bowel sounds. Absent: distended, tenderness, guarding, rebound, rigid Extremities exam: Present: normal inspection, full ROM, normal capillary refill. Absent: tenderness, pedal edema, joint swelling, calf tenderness Back exam: Present: normal inspection Neurological exam: Present: alert, oriented X3, CN II-XII intact Psychiatric exam: Present: normal affect, normal mood Skin exam: Present: warm, dry, intact, normal color. Absent: rash Course Vital Signs 10/16/23 10/16/23 10/16/23 16:22 17:47 20:00 Temperature 98 F Pulse Rate 90 79 75 Respiratory 18 18 22 Rate Blood Pressure 95/74 107/91 141/116 O2 Sat by Pulse 96 96 92 L Oximetry 10/16/23 10/16/23 10/16/23 21:14 21:25 23:00 Temperature Pulse Rate 76 80 73 Respiratory 20 Rate Blood Pressure 103/76 O2 Sat by Pulse 96 Oximetry 10/17/23 10/17/23 10/17/23 03:04 06:00 08:09 Temperature 98.6 F Pulse Rate 67 72 73 Respiratory 16 22 18 Rate Blood Pressure 111/70 120/89 114/73 O2 Sat by Pulse 92 L 97 100 Oximetry - Reevaluation(s) Reevaluation #1: 10/16/23 20:34 Medical records reviewed Reevaluation #2: 10/16/23 20:34 Patient symptoms unchanged Reevaluation #3: 10/16/23 20:34 Patient informed of results questions answered Reevaluation #4: Was pt. sent in by a medical professional or institution (, PA, YARD SWITCHER, urgent care, hospital, or fdc...) When possible be specific @ -no Did you speak to anyone other than the patient for history (EMS, parent, family, police, friend...)? What history was obtained from this source @ -no Did you review nursing and triage notes (agree or disagree)? Why? @ -agree Are old charts reviewed (outside hosp., previous admission, EMS record, old EKG, old radiological studies, urgent care reports/EKG's, fdc records)? Report findings @ -yes Differential Diagnosis (chest pain, altered mental status, abdominal pain women, abdominal pain men, vaginal bleeding, weakness, fever, dyspnea, syncope, headache, dizziness, GI bleed, back pain, seizure, CVA, palpatations, mental health, musculoskeletal)? @ -prior EKG interpreted by me (3pts min.). @ -yes X-rays interpreted by me (1pt min.). @ -yes negative for acute disease CT interpreted by me (1pt min.). @ -no U/S interpreted by me (1pt. min.). @ -no What testing was considered but not performed or refused? (CT, X-rays, U/S, labs)? Why? @ -none What meds were considered but not given or refused? Why? @ -none Did you discuss the management of the patient with other professionals (professionals i.e. , PA, YARD SWITCHER, lab, RT, psych nurse, case management social worker, trap operator, teacher, penal officer, telephonic nurse case manager)? Give summary @ -no Was smoking cessation discussed for >3mins.? @ -no Was critical care preformed (if so, how long)? @ -no Were there social determinants of health that impacted care today? How? (Homelessness, low income, unemployed, alcoholism, drug addiction, transportation, low edu. Level, literacy, decrease access to med. care, longterm, rehab)? @ -none Was there de-escalation of care discussed even if they declined (Discuss DNR or withdrawal of care, Hospice)? DNR status @ -no What co-morbidities impacted this encounter? (DM, HTN, Smoking, COPD, CAD, Cancer, CVA, ARF, Chemo, Hep., AIDS, mental health diagnosis, sleep apnea, morbid obesity)? @ -none Was patient admitted / discharged? Hospital course, mention meds given and route, prescriptions, significant lab abnormalities, going to OR and other pertinent info. @ - 58 male will be admitted for low-dose potassium and hepatitis. Patient eduardo l admit for resuscitation and potassium replacement Admitted Undiagnosed new problem with uncertain prognosis? @ -no Drug Therapy requiring intensive monitoring for toxicity (Heparin, Nitro, Insulin, Cardizem)? @ -no Were any procedures done? @ -no Diagnosis/symptom? @ -Significant electrolyte derangement Acute, or Chronic, or Acute on Chronic? @ -Acute Uncomplicated (without systemic symptoms) or Complicated (systemic symptoms)? @ -Complicated Side effects of treatment? @ -no Exacerbation, Progression, or Severe Exacerbation? @ -exacerbation Poses a threat to patient's life, yes Reevaluation #5: Differential Dyspnea: Coronary syndrome, arrhythmia, tamponade, asthma, COPD, pulmonary embolism, pneumonia, pneumothorax, pulmonary effusion, anaphylaxis, diabetic ketoacidosis, flailed chest, pulmonary contusion, diaphragmatic rupture, anemia, neuromuscular, this is not meant to be an all-inclusive list. - Consultations Consultation #1: Spoke with sound who agrees to admit this patient Medical Decision Making - Medical Decision Making 58 male will be admitted for low-dose potassium and hepatitis. Patient will admit for resuscitation and potassium replacement - Lab Data Result diagrams: 10/19/23 08:05 10/19/23 08:05 Lab Results 10/16/23 10/16/23 10/16/23 Range/Units 16:46 16:46 16:46 WBC 5.2 (3.8-10.6) k/uL RBC 4.09 L (4.30-5.90) m/uL Hgb 14.0 (13.0-17.5) gm/dL Hct 42.7 (39.0-53.0) % MCV 104.6 H (80.0-100.0) fL MCH 34.3 (25.0-35.0) pg MCHC 32.8 (31.0-37.0) g/dL RDW 13.0 (11.5-15.5) % Plt Count 161 (150-450) k/uL MPV 8.7 Neutrophils % 78 % Lymphocytes % 13 % Monocytes % 7 % Eosinophils % 1 % Basophils % 0 % Neutrophils # 4.1 (1.3-7.7) k/uL Lymphocytes # 0.7 L (1.0-4.8) k/uL Monocytes # 0.3 (0-1.0) k/uL Eosinophils # 0.1 (0-0.7) k/uL Basophils # 0.0 (0-0.2) k/uL Macrocytosis Slight PT 11.9 (10.0-12.5) sec INR 1.1 (<1.2) APTT 23.8 (22.0-30.0) sec Sodium 131 L (137-145) mmol/L Potassium 2.7 L* (3.5-5.1) mmol/L Chloride 89 L (98-107) mmol/L Carbon Dioxide 29 (22-30) mmol/L Anion Gap 13 mmol/L BUN 8 L (9-20) mg/dL Creatinine 0.71 (0.66-1.25) mg/dL Est GFR (CKD-EPI)AfAm >90 (>60 ml/min/1.73 sqM) Est GFR (CKD-EPI)NonAf >90 (>60 ml/min/1.73 sqM) Glucose 138 H (74-99) mg/dL Plasma Lactic Acid Chuy (0.7-2.0) mmol/L Calcium 8.3 L (8.4-10.2) mg/dL Phosphorus (2.5-4.5) mg/dL Magnesium (1.6-2.3) mg/dL Total Bilirubin 2.3 H (0.2-1.3) mg/dL AST 168 H (17-59) U/L ALT 119 H (4-49) U/L Alkaline Phosphatase 237 H (38-126) U/L Troponin I (0.000-0.034) ng/mL NT-Pro-B Natriuret Pep pg/mL Total Protein 4.9 L (6.3-8.2) g/dL Albumin 2.5 L (3.5-5.0) g/dL 10/16/23 10/16/23 10/16/23 Range/Units 16:46 16:46 17:39 WBC (3.8-10.6) k/uL RBC (4.30-5.90) m/uL Hgb (13.0-17.5) gm/dL Hct (39.0-53.0) % MCV (80.0-100.0) fL MCH (25.0-35.0) pg MCHC (31.0-37.0) g/dL RDW (11.5-15.5) % Plt Count (150-450) k/uL MPV Neutrophils % % Lymphocytes % % Monocytes % % Eosinophils % % Basophils % % Neutrophils # (1.3-7.7) k/uL Lymphocytes # (1.0-4.8) k/uL Monocytes # (0-1.0) k/uL Eosinophils # (0-0.7) k/uL Basophils # (0-0.2) k/uL Macrocytosis PT (10.0-12.5) sec INR (<1.2) APTT (22.0-30.0) sec Sodium (137-145) mmol/L Potassium (3.5-5.1) mmol/L Chloride (98-107) mmol/L Carbon Dioxide (22-30) mmol/L Anion Gap mmol/L BUN (9-20) mg/dL Creatinine (0.66-1.25) mg/dL Est GFR (CKD-EPI)AfAm (>60 ml/min/1.73 sqM) Est GFR (CKD-EPI)NonAf (>60 ml/min/1.73 sqM) Glucose (74-99) mg/dL Plasma Lactic Acid Chuy 1.2 (0.7-2.0) mmol/L Calcium (8.4-10.2) mg/dL Phosphorus 2.1 L (2.5-4.5) mg/dL Magnesium 1.7 (1.6-2.3) mg/dL Total Bilirubin (0.2-1.3) mg/dL AST (17-59) U/L ALT (4-49) U/L Alkaline Phosphatase (38-126) U/L Troponin I 0.069 H* (0.000-0.034) ng/mL NT-Pro-B Natriuret Pep 1750 pg/mL Total Protein (6.3-8.2) g/dL Albumin (3.5-5.0) g/dL - Radiology Data Radiology results: report reviewed (Chest x-ray is negative for acute disease ultrasound gallbladder negative for acute disease), image reviewed Disposition Clinical Impression: Dehydration, Hypokalemia, Weakness, Diarrhea, Cough, Bronchitis, ZAID (acute kidney injury), Hyponatremia Disposition: ADMITTED IP TO THIS HOSP Condition: Stable Is patient prescribed a controlled substance at d/c from ED?: No Time of Disposition: 20:30
[2023-10-16 17:30] LABS: Potassium 2.7 mmol/L (3.5-5.1)
[2023-10-16 17:56] LABS: Magnesium 1.7 mg/dL (1.6-2.3); Phosphorus 2.1 mg/dL (2.5-4.5)
[2023-10-16] MEDS: SODIUM CHLORIDE 0.9% 1,000 ML IV STA (17:56)
--- NOTE | 2023-10-16 18:05 | XR ---
EXAMINATION TYPE: XR chest 2V DATE OF EXAM: 10/16/2023 5:28 PM CLINICAL INDICATION:Male, 58 years old with history of Weakness; [facility] COMPARISON: Chest radiographs from 07/18/2023. TECHNIQUE: XR chest 2V Frontal and lateral views of the chest. FINDINGS: Lungs/Pleura: There is no evidence of pleural effusion, focal consolidation, or pneumothorax. Pulmonary vascularity: Unremarkable. Heart/mediastinum: Cardiomediastinal silhouette is unremarkable. Musculoskeletal: No acute osseous pathology. IMPRESSION: No acute cardiopulmonary disease/process.
--- NOTE | 2023-10-16 20:14 | US ---
EXAMINATION TYPE: US gallbladder DATE OF EXAM: 10/16/2023 COMPARISON: US 2019 CLINICAL INDICATION: Male, 58 years old with history of pain; Patient states abdominal pain TECHNIQUE: Multiple sonographic images of the right upper quadrant are obtained. FINDINGS: EXAM MEASUREMENTS: Liver Length: 18.6 cm Gallbladder Wall: 0.3 cm CBD: Unable to visualize cm Right Kidney: 11.2 x 6.0 x 4.5 cm SHIPPING AND RECEIVING MATERIAL HANDLER NOTES:Limited exam due to body habitus, overlying bowel gas, rib shadows, and lack of p atient mobility. Pancreas: Obscured by bowel gas Liver: Difficult to penetrate. Upper limits of normal in size. Intercostal approach used. Visualized portions appear WNL as best seen, posterior aspect not well seen. Gallbladder: There is a 1.5 x 1.0 x 1.2cm echogenic focus seen. Evidence for sonographic Roman's sign: No CBD: Obscured by overlying bowel gas Right Kidney: wnl as best visualized today IMPRESSION: 1. Hepatic steatosis. 2. Cholelithiasis.
[2023-10-16] MEDS ORDERED: NALOXONE 0.4 MG/ML 1 ML VIAL IV PRN (20:29)
[2023-10-16] MEDS ORDERED: ONDANSETRON 4 MG/2 ML VIAL IVP PRN (20:29)
[2023-10-16] MEDS: HYDROmorphone 1 MG/ML 1 ML SYRINGE IVP STA (21:04)
[2023-10-16] MEDS: BENZONATATE 100 MG CAP PO STA (21:05)
[2023-10-16] MEDS: MAGNESIUM SULFATE-D5W PMX 1 GM in DEXTROSE/WATER 1 100ML.BAG IVPB SCH (21:06)
[2023-10-16] MEDS: IPRATROPIUM-ALBUTEROL 3 ML NEB INHALATION STA (21:13)
--- NOTE | 2023-10-17 01:29 | P.HPIM ---
History of Present Illness H&P Date: 10/16/23 Patient is a 68-year-old male with a PMH of alcohol abuse, COPD, hypertension, who presents to the emergency room with complaints of persistent cough, diarrhea, with nausea and generalized weakness. Patient reports the above symptoms have been ongoing for the past 3 to 4 weeks. Reports that the cough is nonproductive. Notes having 3-4 loose bowel movements per day over the past several weeks. As a result he has been eating less than usual. During this time he is also noticed bilateral lower extremity pitting edema which is new for him. Denies experiencing chest discomfort, fever, chills, abdominal pain. Gallbladder ultrasound in the emergency room revealed cholelithiasis with hepatic steatosis with chest x-ray showing no acute abnormalities. Laboratory evaluation was remarkable for sodium 131, potassium 2.7, chloride 89, lactic acid 1.2, troponin 0.069, proBNP 1750, AST 168, ALT 119, and alk phos 237, with MCV 104.6. ED documentation reviewed and case discussed with ED provider. Review of systems: Pertinent positives and negatives as discussed in HPI, a complete review of systems was performed and all other systems are negative. Physical examination: Vital signs reviewed General: non toxic, no distress, appears at stated age, obese Derm: no unusual rashes/lesions, warm Head: atraumatic, normocephalic, symmetric Eyes: EOMI, no lid lag, anicteric sclera, pupils equal round reactive to light ENT: Nose and ears atraumatic Neck: No cervical lymphadenopathy, trachea midline, supple Mouth: no lip lesion, mucus membranes moist Cardiovascular: S1S2 reg, no murmur, positive dorsalis pedis pulse bilateral, no edema Lungs: CTA bilateral, no rhonchi, no rales, no accessory muscle use Abdominal: soft, nontender to palpation, no guarding Ext: muscle strength 5 out of 5 in all 4 extremities grossly, no gross muscle atrophy, no contractures, Neuro: CN II-XI grossly intact, no gross focal neuro deficits Psych: Alert, oriented, appropriate affect Assessment: Persistent cough with diarrhea, suspect viral illness with history of COPD Fluid overload, previous echo from 07/20 revealed severely increased septal wall thickening Severe hypokalemia, suspect due to persistent diarrhea and poor oral intake Elevated troponin, may be due to ongoing fluid overload, patient denying chest discomfort Transaminitis, in patient with history of alcohol abuse and fluid overload Macrocytosis Hypochloremic hyponatremia Chronic conditions: COPD, hypertension, alcohol abuse Imaging: Gallbladder ultrasound in the emergency room revealed cholelithiasis with hepatic steatosis with chest x-ray showing no acute abnormalities. Data Review: Laboratory evaluation was remarkable for sodium 131, potassium 2.7, chloride 89, lactic acid 1.2, troponin 0.069, proBNP 1750, AST 168, ALT 119, and alk phos 237, with MCV 104.6. Plan: Cardiology consulted Trend troponin Cardiac monitoring Replace potassium and monitor Check for C. difficile and Legionella Check B12 and folate levels Monitor BMP Resume home medications DVT prophylaxis: Lovenox subcu The patient is admitted with an anticipated greater than 2 midnight stay for evaluation of fluid overload CODE STATUS: Full Code Discussed with: Patient Anticipated discharge place: Home Past Medical History Past Medical History: Eye Disorder, Hearing Disorder / Deafness, Hypertension, Memory Impairment Additional Past Medical History / Comment(s): wake up gasping for air History of Any Multi-Drug Resistant Organisms: None Reported Past Surgical History: Orthopedic Surgery Additional Past Surgical History / Comment(s): sinus Past Anesthesia/Blood Transfusion Reactions: No Reported Reaction Past Psychological History: Anxiety Smoking Status: Current every day smoker Past Alcohol Use History: None Reported - Past Family History Mother Family Medical History: No Reported History Father Family Medical History: AFIB, AICD/Pacemaker, Coronary Artery Disease (CAD), CVA/TIA Medications and Allergies Home Medications Medication Instructions Recorded Confirmed Type Albuterol Inhaler [Ventolin Hfa 2 puff INHALATION RT-Q4H PRN 07/17/23 10/16/23 History Inhaler] Escitalopram [Lexapro] 20 mg PO DAILY 07/17/23 10/16/23 History Meloxicam [Mobic] 15 mg PO DAILY 07/17/23 10/16/23 History Omeprazole 40 mg PO DAILY 07/17/23 10/16/23 History busPIRone HCL 10 mg PO DAILY 07/17/23 10/16/23 History LORazepam [Ativan] 1 mg PO DIRECTED PRN 07/18/23 10/16/23 History traZODone HCL [Desyrel] 200 mg PO HS PRN 07/18/23 10/16/23 History Aspirin 81 mg PO DAILY 30 Days #30 tab 07/23/23 10/16/23 Rx Folic Acid 1 mg PO DAILY 30 Days #30 tab 07/23/23 10/16/23 Rx Metoprolol Succinate (ER) [Toprol 25 mg PO DAILY 30 Days #30 tab 07/23/23 Rx XL] Potassium Chloride ER [K-Dur 10] 10 meq PO DAILY 30 Days #30 tab 07/23/2310/15 Rx Thiamine [Vitamin B-1] 100 mg PO DAILY 30 Days #30 tab 07/23/23 10/16/23 Rx Cholecalciferol (Vitamin D3) 50 mcg PO DAILY 10/16/23 10/16/23 History [Vitamin D3 (50 Mcg = 2000 Iu)] Furosemide [Lasix] 20 mg PO DAILY 10/16/23 10/16/23 History hydrALAZINE HCL [Apresoline] 25 mg PO TID 10/16/23 10/16/23 History Allergies Allergy/AdvReac Type Severity Reaction Status Date / Time bacitracin Allergy Rapid Verified 10/16/23 19:00 [From Neosporin Heart Rate ([id number])] neomycin Allergy Rapid Verified 10/16/23 19:00 [From Neosporin Heart Rate ([id number])] polymyxin B Allergy Rapid Verified 10/16/23 19:00 [From Neosporin Heart Rate ([id number])] Sulfa (Sulfonamide Allergy Anaphylaxis, Verified 10/16/23 19:00 Antibiotics) racing heart venom-honey bee Allergy Unknown Verified 10/16/23 19:00 [bee venom (honey bee)] Physical Exam Vitals: Vital Signs Temp Pulse Resp BP Pulse Ox 10/16/23 23:00 73 20 103/76 96 10/16/23 21:25 80 10/16/23 21:14 76 10/16/23 20:00 75 22 141/116 92 L 10/16/23 17:47 79 18 107/91 96 10/16/23 16:22 98 F 90 18 95/74 96 Intake and Output 10/16/23 10/16/23 10/17/23 14:59 22:59 06:59 Other: Weight 104.326 kg Results CBC & Chem 7: 10/16/23 16:46 10/16/23 16:46 Labs: Abnormal Lab Results - Last 24 Hours (Table) 10/16/23 10/16/23 10/16/23 Range/Units 16:46 16:46 16:46 RBC 4.09 L (4.30-5.90) m/uL MCV 104.6 H (80.0-100.0) fL Lymphocytes # 0.7 L (1.0-4.8) k/uL Sodium 131 L (137-145) mmol/L Potassium 2.7 L* (3.5-5.1) mmol/L Chloride 89 L (98-107) mmol/L BUN 8 L (9-20) mg/dL Glucose 138 H (74-99) mg/dL Calcium 8.3 L (8.4-10.2) mg/dL Phosphorus (2.5-4.5) mg/dL Total Bilirubin 2.3 H (0.2-1.3) mg/dL AST 168 H (17-59) U/L ALT 119 H (4-49) U/L Alkaline Phosphatase 237 H (38-126) U/L Troponin I 0.069 H* (0.000-0.034) ng/mL Total Protein 4.9 L (6.3-8.2) g/dL Albumin 2.5 L (3.5-5.0) g/dL 10/16/23 Range/Units 17:39 RBC (4.30-5.90) m/uL MCV (80.0-100.0) fL Lymphocytes # (1.0-4.8) k/uL Sodium (137-145) mmol/L Potassium (3.5-5.1) mmol/L Chloride (98-107) mmol/L BUN (9-20) mg/dL Glucose (74-99) mg/dL Calcium (8.4-10.2) mg/dL Phosphorus 2.1 L (2.5-4.5) mg/dL Total Bilirubin (0.2-1.3) mg/dL AST (17-59) U/L ALT (4-49) U/L Alkaline Phosphatase (38-126) U/L Troponin I (0.000-0.034) ng/mL Total Protein (6.3-8.2) g/dL Albumin (3.5-5.0) g/dL
[2023-10-17] MEDS: SODIUM CHLORIDE 0.9% 1,000 ML IV STA (02:33)
[2023-10-17] MEDS: POTASSIUM CHLORIDE 10 MEQ in WATER FOR INJECTION 1 100ML.BAG IVPB SCH ×2 (02:34→14:54)
[2023-10-17] MEDS: LORazepam 1 MG TAB PO PRN (02:35)
[2023-10-17] MEDS: HYDROmorphone 1 MG/ML 1 ML SYRINGE IVP PRN (02:36)
[2023-10-17] MEDS: traZODone HCL 100 MG TAB PO SCH (02:36)
[2023-10-17] MEDS: SODIUM CHLORIDE 0.9% 1,000 ML IV SCH (02:37)
[2023-10-17] MEDS: POTASSIUM CHLORIDE ER 20 MEQ TAB.ER PO SCH (02:39)
[2023-10-17 05:35] LABS: Lipase 102 U/L (23-300)
[2023-10-17 06:08] LABS: Basophils % (A) 0 %; Eosinophils # (A) 0.1 k/uL (0-0.7); Eosinophils % (A) 3 %; HCT 36.1 % (39.0-53.0); HGB 11.5 gm/dL (13.0-17.5); Lymphocytes # (A) 0.4 k/uL (1.0-4.8); Lymphocytes % (A) 15 %; MCH 34.1 pg (25.0-35.0); MCHC 31.9 g/dL (31.0-37.0); MCV 106.8 fL (80.0-100.0); Macrocytosis Moderate; Mean Platelet Volume 9.1; Monocytes # (A) 0.2 k/uL (0-1.0); Monocytes % (A) 8 %; Neutrophils # (A) 2.1 k/uL (1.3-7.7); Neutrophils % (A) 72 %; Platelet Count 103 k/uL (150-450); RBC 3.39 m/uL (4.30-5.90); RDW 13.2 % (11.5-15.5); WBC 2.9 k/uL (3.8-10.6)
[2023-10-17] MEDS: FUROSEMIDE 20 MG TAB PO SCH (08:46)
[2023-10-17] MEDS: PANTOPRAZOLE 40 MG TABLET PO SCH (08:47)
[2023-10-17] MEDS: METOPROLOL SUCCINATE (ER) 25 MG TAB.ER.24H PO SCH (08:47)
[2023-10-17] MEDS: POTASSIUM CHLORIDE ER 10 MEQ TAB.ER.PRT PO SCH (08:47)
[2023-10-17] MEDS: ASPIRIN 81 MG PO SCH (08:47)
[2023-10-17] MEDS: hydrALAZINE HCL 25 MG TAB PO SCH (08:47)
[2023-10-17] MEDS: ENOXAPARIN 40 MG/0.4 ML SYRINGE SQ SCH (08:47)
[2023-10-17] MEDS: FOLIC ACID 1 MG TAB PO SCH (08:47)
[2023-10-17] MEDS: busPIRone HCl 10 MG TAB PO SCH (08:48)
[2023-10-17] MEDS: THIAMINE 100 MG TAB PO SCH (08:48)
[2023-10-17] MEDS: ESCITALOPRAM 20 MG TAB PO SCH (08:48)
[2023-10-17] MEDS: CHOLECALCIFEROL 25 MCG (1000 IU) TABLET PO SCH (08:55)
[2023-10-17 11:08] LABS: Phosphorus 1.8 mg/dL (2.4-5.1)
--- NOTE | 2023-10-17 11:18 | P.CRDCN ---
History of Present Illness Consult date: 10/17/23 Reason for Consult (text): Fluid overload History of present illness: This is a 58-year-old male patient of Dr. Ivanna Houston with past medical history of syncope, hypertension, anxiety, tobacco use and dependence, and alcohol abuse. We have been asked to evaluate the patient for fluid overload. Patient had a recent hospitalization in June of this year at which time he presented with dizziness found to be hyponatremic, flat troponins and acute kidney injury. Patient presented now to the emergency center with complaints of being unsteady on his feet and feeling tired. He denies any chest pain. He states he feels a little dizzy. Patient does have alcohol history and he states that his last intake was 7 to 8 days ago but does state that he has been drinking a lot every day. Specifics are unable to be obtained from the patient. He denies having any nausea or vomiting. No blood in his stools or urine. He denies history of stroke or seizure. He does complain of a cough. Patient is status post magnesium and potassium replacement as well as 1 L of IV fluids. Patient is seen today in the emergency center waiting for a bed on the cardiac stepdown unit. Patient was sleeping and very difficult to awake. EKG: Sinus rhythm with no acute ST changes. Chest x-ray: No acute process Gallbladder ultrasound: Hepatic steatosis. Cholelithiasis. Laboratory studies: WBC 2.9, hemoglobin 11.5, platelet count 103. Initial potassium 2.7. Sodium 131, BUN 8 and creatinine 0.71. Troponin 0.069 and 0.049. proBNP 1750. Magnesium 1.7. Phosphorus 2.1. Total bilirubin 2.3, AST 168, ALT 119, alkaline phosphatase 237. Serum alcohol less than 10. Home cardiac medications: Aspirin 81 mg daily, Lasix 20 mg daily, hydralazine 25 mg 3 times daily, Toprol-XL 25 mg daily, potassium chloride 10 mill equivalents daily. Echocardiogram performed 07/18/2023 revealed LVEF 60%, severely increased septal wall thickness 1.7 cm and basal septal. RVSP 42 mmHg. Event monitor 08/29 - 09/03/2023 revealed primary rhythm sinus with average heart rate 90 bpm, minimal heart rate 72 and maximal heart rate 136. PVC burden 0.51%. Lexiscan Cardiolite stress test performed on 08/28/2023 revealed a negative stress test by EKG criteria. Probably normal myocardial perfusion and function with fixed inferior wall defect secondary to soft tissue attenuation. Review Of Systems: At the time of my exam: CONSTITUTIONAL: Denies fever or chills. Reports generalized weakness, unsteady gait, feeling tired HEENT: Denies blurred vision, vision changes, or eye pain. Denies hemoptysis CARDIOVASCULAR: Denies chest pain. Denies orthopnea. Denies PND. Denies palpitations RESPIRATORY: Denies shortness of breath. GASTROINTESTINAL: Denies abdominal pain. Denies nausea or vomiting. HEMATOLOGIC: Denies bleeding disorders. GENITOURINARY: Denies any blood in urine. SKIN: Denies puritis. Denies rash. Physical examination: Gen: This is a 58-year-old male in no acute distress VS: reviewed, blood pressure 120/89, heart rate 72, pulse ox 97% on 2 L nasal cannula. HEENT: Head is atraumatic, normocephalic. Pupils equal, round. Sclerae is anicteric. NECK: Supple. No JVD. LUNGS: Clear to auscultation. No wheezes or rhonchi. No intercostal retractions. HEART: Regular rate and rhythm. No murmur. ABDOMEN: Soft No tenderness. EXTREMITIES: Edema lower extremities. No calf tenderness. NEUROLOGICAL: Patient is awake, alert and oriented x3. Assessment: Chronically elevated troponins not indicative of acute ischemia/injury Severe hypokalemia Elevated liver function tests Pancytopenia secondary to EtOH abuse Lower extremity edema secondary to malnutrition, low protein and albumin History of syncope Hypertension Generalized anxiety disorder Tobacco use and dependence Alcohol abuse Plan: Resume patient's home cardiac medications Edema is related to malnutrition, low protein and low albumin. Patient has no acute cardiac issue at this time. He has had a negative cardiac workup in the past. Continue to monitor potassium and magnesium and replace as appropriate IV Lasix 20 mg twice daily for 24 to 48 hours and then resume home Lasix dose No need to repeat echocardiogram as this was done in June Further recommendations to follow based upon clinical course Smoking cessation. Patient will be provided [place] quit line information at discharge. Thank you kindly for this consultation. Nurse practitioner note has been reviewed, I agree with documented findings and plan of care. Patient was seen and examined. Past Medical History Past Medical History: Eye Disorder, Hearing Disorder / Deafness, Hypertension, Memory Impairment Additional Past Medical History / Comment(s): wake up gasping for air History of Any Multi-Drug Resistant Organisms: None Reported Past Surgical History: Orthopedic Surgery Additional Past Surgical History / Comment(s): sinus Past Anesthesia/Blood Transfusion Reactions: No Reported Reaction Past Psychological History: Anxiety Smoking Status: Current every day smoker Past Alcohol Use History: None Reported - Past Family History Mother Family Medical History: No Reported History Father Family Medical History: AFIB, AICD/Pacemaker, Coronary Artery Disease (CAD), CVA/TIA Medications and Allergies Home Medications Medication Instructions Recorded Confirmed Type Albuterol Inhaler [Ventolin Hfa 2 puff INHALATION RT-Q4H PRN 07/17/23 10/16/23 History Inhaler] Escitalopram [Lexapro] 20 mg PO DAILY 07/17/23 10/16/23 History Meloxicam [Mobic] 15 mg PO DAILY 07/17/23 10/16/23 History Omeprazole 40 mg PO DAILY 07/17/23 10/16/23 History busPIRone HCL 10 mg PO DAILY 07/17/23 10/16/23 History LORazepam [Ativan] 1 mg PO DIRECTED PRN 07/18/23 10/16/23 History traZODone HCL [Desyrel] 200 mg PO HS PRN 07/18/23 10/16/23 History Aspirin 81 mg PO DAILY 30 Days #30 tab 07/23/23 10/16/23 Rx Folic Acid 1 mg PO DAILY 30 Days #30 tab 07/23/23 10/16/23 Rx Metoprolol Succinate (ER) [Toprol 25 mg PO DAILY 30 Days #30 tab 07/23/23 10/16/23 Rx XL] Potassium Chloride ER [K-Dur 10] 10 meq PO DAILY 30 Days #30 tab 07/23/23 0 10/16/23 Rx Thiamine [Vitamin B-1] 100 mg PO DAILY 30 Days #30 tab 07/23/23 10/16/23 Rx Cholecalciferol (Vitamin D3) 50 mcg PO DAILY 10/16/23 10/16/23 History [Vitamin D3 (50 Mcg = 2000 Iu)] Furosemide [Lasix] 20 mg PO DAILY 10/16/23 10/16/23 History hydrALAZINE HCL [Apresoline] 25 mg PO TID 10/16/23 10/16/23 History Allergies Allergy/AdvReac Type Severity Reaction Status Date / Time bacitracin Allergy Rapid Verified 10/16/23 19:00 [From Neosporin Heart Rate ([id number])] neomycin Allergy Rapid Verified 10/16/23 19:00 [From Neosporin Heart Rate ([id number])] polymyxin B Allergy Rapid Verified 10/16/23 19:00 [From Neosporin Heart Rate ([id number])] Sulfa (Sulfonamide Allergy Anaphylaxis, Verified 10/16/23 19:00 Antibiotics) racing heart venom-honey bee Allergy Unknown Verified 10/16/23 19:00 [bee venom (honey bee)] Physical Exam Vitals: Vital Signs Temp Pulse Resp BP Pulse Ox 10/17/23 06:00 72 22 120/89 97 10/17/23 03:04 67 16 111/70 92 L 10/16/23 23:00 73 20 103/76 96 10/16/23 21:25 80 10/16/23 21:14 76 10/16/23 20:00 75 22 141/116 92 L 10/16/23 17:47 79 18 107/91 96 10/16/23 16:22 98 F 90 18 95/74 96 Intake and Output 10/16/23 10/17/23 10/17/23 22:59 06:59 14:59 Other: Weight 104.326 kg Results 10/17/23 04:25 10/16/23 16:46 Cardiac Enzymes 10/16/23 10/16/23 10/17/23 Range/Units 16:46 16:46 04:25 AST 168 H (17-59) U/L Troponin I 0.069 H* 0.049 H* (0.000-0.034) ng/mL Coagulation 10/16/23 Range/Units 16:46 PT 11.9 (10.0-12.5) sec APTT 23.8 (22.0-30.0) sec CBC 10/16/23 10/17/23 Range/Units 16:46 04:25 WBC 5.2 2.9 L (3.8-10.6) k/uL RBC 4.09 L 3.39 L (4.30-5.90) m/uL Hgb 14.0 11.5 L (13.0-17.5) gm/dL Hct 42.7 36.1 L (39.0-53.0) % Plt Count 161 103 L (150-450) k/uL Comprehensive Metabolic Panel 10/16/23 Range/Units 16:46 Sodium 131 L (137-145) mmol/L Potassium 2.7 L* (3.5-5.1) mmol/L Chloride 89 L (98-107) mmol/L Carbon Dioxide 29 (22-30) mmol/L BUN 8 L (9-20) mg/dL Creatinine 0.71 (0.66-1.25) mg/dL Glucose 138 H (74-99) mg/dL Calcium 8.3 L (8.4-10.2) mg/dL AST 168 H (17-59) U/L ALT 119 H (4-49) U/L Alkaline Phosphatase 237 H (38-126) U/L Total Protein 4.9 L (6.3-8.2) g/dL Albumin 2.5 L (3.5-5.0) g/dL Current Medications Generic Name Dose Route Start Last Admin Trade Name Freq PRN Reason Stop Dose Admin Aspirin 81 mg 10/17/23 09:00 Aspirin 81 Mg PO DAILY [facility]1983 Buspirone HCl 10 mg 10/17/23 09:00 Buspirone Hcl 10 Mg Tab PO DAILY [facility]1983 Cholecalciferol 50 mcg 10/17/23 09:00 Cholecalciferol 25 Mcg (1000 Iu) Tablet PO DAILY [facility]1983 Enoxaparin Sodium 40 mg 10/17/23 09:00 Enoxaparin 40 Mg/0.4 Ml Syringe SQ DAILY [facility]1983 Escitalopram Oxalate 20 mg 10/17/23 09:00 Escitalopram 20 Mg Tab PO DAILY [facility] Folic Acid 1 mg 10/17/23 09:00 Folic Acid 1 Mg Tab PO DAILY [facility] Furosemide 20 mg 10/17/23 09:00 Furosemide 20 Mg Tab PO DAILY [facility]1983 Hydralazine HCl 25 mg 10/17/23 09:00 Hydralazine Hcl 25 Mg Tab PO TID [facility] Hydromorphone HCl 1 mg 10/16/23 20:29 10/17/23 02:36 Hydromorphone 1 Mg/Ml 1 Ml Syringe IVP 1 mg Q3HR PRN Administration Severe Pain (Scale 7 to 10) Sodium Chloride 1,000 mls @ 130 mls/hr 10/16/23 20:30 10/17/23 07:01 Saline 0.9% IV Not Given .[id number] BAO Lorazepam 1 mg 10/16/23 23:41 10/17/23 02:35 Lorazepam 1 Mg Tab PO 1 mg TID PRN Administration Anxiety Metoprolol Succinate 25 mg 10/17/23 09:00 Metoprolol Succinate (Er) 25 Mg Tab.Er.24h PO DAILY BAO Naloxone HCl 0.2 mg 10/16/23 20:29 Naloxone 0.4 Mg/Ml 1 Ml Vial IV Q2M PRN Opioid Reversal Ondansetron HCl 4 mg 10/16/23 20:29 Ondansetron 4 Mg/2 Ml Vial IVP Q8HR PRN Nausea And Vomiting Pantoprazole Sodium 40 mg 10/17/23 09:00 Pantoprazole 40 Mg Tablet PO DAILY BAO Potassium Chloride 10 meq 10/17/23 09:00 Potassium Chloride Er 10 Meq Tab.Er.Prt PO DAILY BAO Thiamine HCl 100 mg 10/17/23 09:00 Thiamine 100 Mg Tab PO DAILY BAO Trazodone HCl 200 mg 10/16/23 23:45 10/17/23 02:36 Trazodone Hcl 100 Mg Tab PO 200 mg HS BAO Administration Intake and Output 10/16/23 10/17/23 10/17/23 22:59 06:59 14:59 Other: Weight 104.326 kg 10/17/23 04:25 10/16/23 16:46
[2023-10-17 12:24] LABS: ALT 98 U/L (10-49); AST 90 U/L (14-35); Albumin 2.1 g/dL (3.8-4.9); Albumin/Globulin Ratio 1.24 Ratio (1.60-3.17); Alkaline Phosphatase 182 U/L (41-126); BUN/Creat Ratio 8.88 Ratio (12.00-20.00); Blood Urea Nitrogen 7.1 mg/dL (9.0-27.0); Calcium 7.7 mg/dL (8.7-10.3); Carbon Dioxide 32.6 mmol/L (21.6-31.8); Chloride 92 mmol/L (96-109); Globulin 1.7 g/dL (1.6-3.3); Glucose 230 mg/dL (70-110); Potassium 2.5 mmol/L (3.5-5.5); Sodium 136 mmol/L (135-145); Total Bilirubin 1.1 mg/dL (0.3-1.2); Total Protein 3.8 g/dL (6.2-8.2)
[2023-10-17] MEDS: POTASSIUM CHLORIDE ER 20 MEQ TAB.ER PO STA (14:54)
[2023-10-17] MEDS: FUROSEMIDE 10 MG/ML 2 ML VIAL IV SCH (14:58)
[2023-10-17] MEDS: POTASSIUM CHLORIDE ER 20 MEQ TAB.ER PO ONE (16:12)
--- NOTE | 2023-10-17 17:38 | P.PN ---
Subjective Progress Note Date: 10/17/23 Patient is a 68-year-old male with a PMH of alcohol abuse, COPD, hypertension, who presents to the emergency room with complaints of persistent cough, diarrhea, with nausea and generalized weakness. Patient reports the above symptoms have been ongoing for the past 3 to 4 weeks. Reports that the cough is nonproductive. Notes having 3-4 loose bowel movements per day over the past several weeks. As a result he has been eating less than usual. During this time he is also noticed bilateral lower extremity pitting edema which is new for him. Denies experiencing chest discomfort, fever, chills, abdominal pain. Gallbladder ultrasound in the emergency room revealed cholelithiasis with hepatic steatosis with chest x-ray showing no acute abnormalities. Laboratory evaluation was remarkable for sodium 131, potassium 2.7, chloride 89, lactic acid 1.2, troponin 0.069, proBNP 1750, AST 168, ALT 119, and alk phos 237, with MCV 104.6. 10/16 Patient was seen and examined. No acute events overnight. CBC WBC 2.9 Hg 11.5 HCt 36.1 MCV 106.8 Plt 103. CMP K 2.5, Cl 92, bicarb 32.6, BUN 7.1, glu 230, Ca 7.7, Phos 1.8, AST 90, ALT 98, alk phos 182, alb 2.1. Mag 2.0. Lipase 102. V12 2405. EtOH < 10. C. diff neg. Legionella neg. Trop 0.049. General: non toxic, no distress, appears at stated age, obese Derm: no unusual rashes/lesions, warm Head: atraumatic, normocephalic, symmetric Eyes: EOMI, no lid lag, anicteric sclera Mouth: no lip lesion, mucus membranes moist Cardiovascular: S1S2 reg, no murmur, no edema Lungs: CTA bilateral, no rhonchi, no rales, no accessory muscle use Abdominal: soft, nontender to palpation, no guarding Ext: muscle strength 5 out of 5 in all 4 extremities grossly, no gross muscle atrophy, no contractures, Neuro: no gross focal neuro deficits Psych: Alert, oriented, appropriate affect Based on my assessment of this patient, this patient meets a high complexity le bhupinder of care. Persistent cough with diarrhea, suspect viral illness with history of COPD Fluid overload, previous echo from 07/20 revealed severely increased septal wall thickening: Cardiology recommends Lasix 20 mg IV BID for 1 day. Severe hypokalemia: Suspect due to persistent diarrhea and poor oral intake. KCl 60 meq PO and 40 meq IV ordered. Mag wnl. Elevated troponin: May be due to ongoing fluid overload. Patient denying chest discomfort. ACS ruled out. Cardiology recommends no further cardiac workup. Transaminitis, in patient with history of alcohol abuse and fluid overload Macrocytosis: B12 as above. Check folate. Likely from EtOH abuse. Hypochloremic hyponatremia Chronic conditions: COPD, hypertension, alcohol abuse CODE STATUS: FULL CODE DVT Prophylaxis: Lovenox SQ GI Prophylaxis: Protonix PO Designated medical POA if patient is not able to make medical decisions for themselves: I have reviewed the following organizational consultant notes: Cardiology consult. I have reviewed the results of the following tests: Trop. CBC. CMP. Mag. Lipase. B12. I have ordered the following tests: CBC and BMP tomorrow morning. I have discussed the care of this patient with the following independent his jose: I have independently interpreted the following test below: I have discussed the management of this patient with the following physician: Objective - Vital Signs Vital signs: Vital Signs Temp 97.5 F L 10/17/23 12:12 Pulse 84 10/17/23 15:23 Resp 16 10/17/23 15:23 BP 106/75 10/17/23 15:23 Pulse Ox 94 L 10/17/23 15:23 FiO2 Intake & Output 10/16/23 10/17/23 10/17/23 18:59 06:59 18:59 Intake Total 200 Balance 200 Weight 104.326 kg Intake: IV 200 Potassium Chloride 10 meq 200 In Water For Injection 1 100ml.bag @ 100 mls/hr IVPB Q1HR BAO Rx#: [id number] Other: # Voids 1 - Labs CBC & Chem 7: 10/17/23 04:25 10/17/23 04:25 Labs: Abnormal Lab Results - Last 24 Hours (Table) 10/16/23 10/16/23 10/17/23 Range/Units 16:46 17:39 04:25 WBC 2.9 L (3.8-10.6) k/uL RBC 3.39 L (4.30-5.90) m/uL Hgb 11.5 L (13.0-17.5) gm/dL Hct 36.1 L (39.0-53.0) % MCV 106.8 H (80.0-100.0) fL Plt Count 103 L (150-450) k/uL Lymphocytes # 0.4 L (1.0-4.8) k/uL Potassium (3.5-5.5) mmol/L Chloride (96-109) mmol/L Carbon Dioxide (21.6-31.8) mmol/L BUN (9.0-27.0) mg/dL BUN/Creatinine Ratio (12.00-20.00) Ratio Glucose (70-110) mg/dL Calcium (8.7-10.3) mg/dL Phosphorus 2.1 L (2.5-4.5) mg/dL AST (14-35) U/L ALT (10-49) U/L Alkaline Phosphatase (41-126) U/L Troponin I 0.069 H* (0.000-0.034) ng/mL Total Protein (6.2-8.2) g/dL Albumin (3.8-4.9) g/dL Albumin/Globulin Ratio (1.60-3.17) Ratio Vitamin B12 (200.0-944.0) pg/mL 10/17/23 10/17/23 Range/Units 04:25 04:25 WBC (3.8-10.6) k/uL RBC (4.30-5.90) m/uL Hgb (13.0-17.5) gm/dL Hct (39.0-53.0) % MCV (80.0-100.0) fL Plt Count (150-450) k/uL Lymphocytes # (1.0-4.8) k/uL Potassium 2.5 A* (3.5-5.5) mmol/L Chloride 92 L (96-109) mmol/L Carbon Dioxide 32.6 H (21.6-31.8) mmol/L BUN 7.1 L (9.0-27.0) mg/dL BUN/Creatinine Ratio 8.88 L (12.00-20.00) Ratio Glucose 230 H (70-110) mg/dL Calcium 7.7 L (8.7-10.3) mg/dL Phosphorus 1.8 L (2.5-4.5) mg/dL AST 90 H (14-35) U/L ALT 98 H (10-49) U/L Alkaline Phosphatase 182 H (41-126) U/L Troponin I 0.049 H* (0.000-0.034) ng/mL Total Protein 3.8 L (6.2-8.2) g/dL Albumin 2.1 L (3.8-4.9) g/dL Albumin/Globulin Ratio 1.24 L (1.60-3.17) Ratio Vitamin B12 2405.0 H (200.0-944.0) pg/mL
[2023-10-18 09:41] LABS: African American GFR (CKD) >90 (>60 ml/min/1.73 sqM); Anion Gap -2 mmol/L; Blood Urea Nitrogen 5 mg/dL (9-20); Calcium 7.8 mg/dL (8.4-10.2); Carbon Dioxide 39 mmol/L (22-30); Chloride 92 mmol/L (98-107); Glucose 229 mg/dL (74-99); Non-African American GFR(CKD) >90 (>60 ml/min/1.73 sqM); Sodium 129 mmol/L (137-145)
[2023-10-18 09:46] LABS: Potassium 3.2 mmol/L (3.5-5.1)
[2023-10-18 10:06] LABS: Albumin 1.9 g/dL (3.5-5.0); Bilirubin, Delta 1.1 mg/dL (0.0-0.2); Bilirubin,Unconjugated 0.3 mg/dL (0.0-1.1); Total Bilirubin 1.4 mg/dL (0.2-1.3)
[2023-10-18 10:33] LABS: HCT 40.8 % (39.0-53.0); HGB 13.2 gm/dL (13.0-17.5); MCHC 32.2 g/dL (31.0-37.0); MCV 105.4 fL (80.0-100.0); Macrocytosis Slight; Platelet Count 113 k/uL (150-450); RBC 3.87 m/uL (4.30-5.90); RDW 13.1 % (11.5-15.5); WBC 3.1 k/uL (3.8-10.6)
[2023-10-18 11:37] LABS: Lymphocytes # (M) 0.53 k/uL (1.0-4.8); Monocytes # (M) 0.31 k/uL (0-1.0); Neutrophils # (M) 2.26 k/uL (1.3-7.7); Neutrophils % (M) 73 %; Nucleated Red Blood Cells 0 /100 WBC (0-0); Total Cells Counted 100
--- NOTE | 2023-10-18 11:43 | CA ---
Transthoracic Echo Report Name: Moody Will Age: 58 Gender: M : 1965 Exam Date: 10/17/2023 15:02 Exam Location: [place] [facility] Ht (in): 71 Wt (lb): 230 Ordering Physician: Mook Henry MD Attending/Referring Phys: Surface Room Shop Optician Lola Rangel RDCS Procedure CPT: Indications: trop Cardiac Hx: Echo done ( 07-18-23) Technical Quality: Poor, Technically difficult study Contrast 1: Total Dose (mL): Contrast 2: Total Dose (mL): MEASUREMENTS (Male / Female) Normal Values 2D ECHO LV Diastolic Diameter PLAX 3.9 cm 4.2 - 5.9 / 3.9 - 5.3 cm LV Systolic Diameter PLAX 2.8 cm IVS Diastolic Thickness 1.1 cm 0.6 - 1.0 / 0.6 - 0.9 cm LVPW Diastolic Thickness 1.2 cm 0.6 - 1.0 / 0.6 - 0.9 cm LV Relative Wall Thickness 0.6 RV Internal Dim ED PLAX 2.0 cm LA Systolic Diameter LX 4.1 cm 3.0 - 4.0 / 2.7 - 3.8 cm M-MODE Aortic Root Diameter MM 3.4 cm LA Systolic Diameter MM 2.8 cm LA Ao Ratio MM 0.8 AV Cusp Separation MM 1.7 cm FINDINGS Left Ventricle Left ventricular ejection fraction is estimated at 60-65%. Mildly increased septal wall thickness. Left ventricular cavity size normal. Normal left ventricular systolic function with no obvious regional wall motion abnormalities. Right Ventricle Right Atrium Left Atrium Mitral Valve Aortic Valve Tricuspid Valve Pulmonic Valve Pericardium Echo free space anterior to the right ventricle likely represents a fat pad. Trace pericardial effusion Aorta Normal size aortic root and proximal ascending aorta. CONCLUSIONS Normal LV systolic function Trace pericardial effusion Previewed by: Dr. Rufino Orellana MD (Electronically Signed) Final Date: 18 October 2023 11:42
[2023-10-18] MEDS: SUCRALFATE 1 GM TAB PO SCH (12:31)
[2023-10-18] MEDS: POTASSIUM CHLORIDE ER 20 MEQ TAB.ER PO STA ×2 (12:46→12:50)
[2023-10-18] MEDS: POTASSIUM CHLORIDE 10 MEQ in WATER FOR INJECTION 1 100ML.BAG IVPB SCH (12:50)
--- NOTE | 2023-10-18 12:58 | P.PN ---
Subjective Progress Note Date: 10/18/23 Patient is a 68-year-old male with a PMH of alcohol abuse, COPD, hypertension, who presents to the emergency room with complaints of persistent cough, diarrhea, with nausea and generalized weakness. Patient reports the above symptoms have been ongoing for the past 3 to 4 weeks. Reports that the cough is nonproductive. Notes having 3-4 loose bowel movements per day over the past several weeks. As a result he has been eating less than usual. During this time he is also noticed bilateral lower extremity pitting edema which is new for him. Denies experiencing chest discomfort, fever, chills, abdominal pain. Gallbladder ultrasound in the emergency room revealed cholelithiasis with hepatic steatosis with chest x-ray showing no acute abnormalities. Laboratory evaluation was remarkable for sodium 131, potassium 2.7, chloride 89, lactic acid 1.2, troponin 0.069, proBNP 1750, AST 168, ALT 119, and alk phos 237, with MCV 104.6. 10/16 Patient was seen and examined. No acute events overnight. CBC WBC 2.9 Hg 11.5 HCt 36.1 MCV 106.8 Plt 103. CMP K 2.5, Cl 92, bicarb 32.6, BUN 7.1, glu 230, Ca 7.7, Phos 1.8, AST 90, ALT 98, alk phos 182, alb 2.1. Mag 2.0. Lipase 102. B12 2405. EtOH < 10. C. diff neg. Legionella neg. Trop 0.049. 10/17 Patient was seen and examined. 2 soft bowel movements overnight. Reports sinus drainage causing cough. BP 94/56 HR 92 this morning. Patient continues to complain of fatigue. He reports upset stomach and nausea. We ordered a COVID/RSV/Flu which was negative. CBC WBC 3.1 RBC 3.87 MCV 105.4 Plt 113. CMP Na 129, K 2.8, Cl 92, bicarb 39, BUN 5, Cr 0.65, glu 229, Ca 7.8, T. Bili 1.4, Delta 1.1, AST 114, ALT 95, alk phos 184, alb 1.9. Folate 764. Echo EF 60-65% w ith trace pericardial effusion. General: non toxic, no distress, appears at stated age, obese Derm: no unusual rashes/lesions, warm Head: atraumatic, normocephalic, symmetric Eyes: EOMI, no lid lag, anicteric sclera Mouth: no lip lesion, mucus membranes moist Cardiovascular: S1S2 tachy, no murmur, 1+ edema bilateral LE Lungs: CTA decreased BS, no rhonchi, no rales, no accessory muscle use Abdominal: soft, epigastric tender to palpation without rebound, no guarding Ext: muscle strength 5 out of 5 in all 4 extremities grossly, no gross muscle atrophy, no contractures, Neuro: no gross focal neuro deficits Psych: Alert, oriented, appropriate affect Based on my assessment of this patient, this patient meets a high complexity level of care. Persistent cough with diarrhea, suspect viral illness with history of COPD: RSV/COVID/Flu, C. diff negative, Legionella negative. Start Lomotil 1 tab PO Q6H PRN diarrhea. Start Carafate 1g PO TID. Obtain CT AP. SIRS: Leukopenia, hypotension, tachycardia. No obvious source of infection. Telemetry monitoring. Obtain CT AP, CXR, UA with reflex to UCx. Fluid overload, previous echo from 07/20 revealed severely increased septal wall thickening: Currectly on Lasix 20 mg IV BID. Severe hypokalemia: Suspect due to persistent diarrhea and poor oral intake. KCl 60 meq PO and 40 meq IV ordered. Mag wnl. Elevated troponin: May be due to ongoing fluid overload. Patient denying chest discomfort. ACS ruled out. Cardiology recommends no further cardiac workup. Transaminitis, in patient with history of alcohol abuse and fluid overload: Check hep panel and lipid panel. Macrocytosis: B12 as above. Check folate. Likely from EtOH abuse. Hypochloremic hyponatremia with metabolic alkalosis likely due to above. Chronic conditions: COPD, hypertension, alcohol abuse CODE STATUS: FULL CODE DVT Prophylaxis: Lovenox SQ GI Prophylaxis: Protonix PO Designated medical POA if patient is not able to make medical decisions for themselves: I have reviewed the following sap solution manager consultant notes: Cardiology consult. I have reviewed the results of the following tests: CBC, CMP, Folate, Echo. I have ordered the following tests: CBC and BMP tomorrow morning. CT AP. UA. B Cx. CXR. Hep panel. Lipid panel. I have discussed the care of this patient with the following independent historian: I have independently interpreted the following test below: I have discussed the management of this patient with the following physician: Objective - Vital Signs Vital signs: Vital Signs Temp 98.1 F 10/18/23 08:21 Pulse 92 10/18/23 08:21 Resp 16 10/18/23 08:21 BP 94/56 10/18/23 08:21 Pulse Ox 94 L 10/18/23 08:21 FiO2 Intake & Output 10/17/23 10/18/23 10/18/23 18:59 06:59 18:59 Intake Total 318 20 236 Balance 318 20 236 Weight 104.326 kg 104.2 kg Intake: IV 200 20 Invasive Line 1 10 Invasive Line 2 10 Potassium Chloride 10 meq 200 In Water For Injection 1 100ml.bag @ 100 mls/hr IVPB Q1HR BAO Rx#: [id number] Oral 118 236 Other: # Voids 1 1 1 # Bowel Movements 1 1 - Labs CBC & Chem 7: 10/18/23 08:47 10/18/23 11:33 Labs: Abnormal Lab Results - Last 24 Hours (Table) 10/17/23 Range/Units 04:25 Potassium 2.5 A* (3.5-5.5) mmol/L Chloride 92 L (96-109) mmol/L Carbon Dioxide 32.6 H (21.6-31.8) mmol/L BUN 7.1 L (9.0-27.0) mg/dL BUN/Creatinine Ratio 8.88 L (12.00-20.00) Ratio Glucose 230 H (70-110) mg/dL Calcium 7.7 L (8.7-10.3) mg/dL Phosphorus 1.8 L (2.4-5.1) mg/dL AST 90 H (14-35) U/L ALT 98 H (10-49) U/L Alkaline Phosphatase 182 H (41-126) U/L Total Protein 3.8 L (6.2-8.2) g/dL Albumin 2.1 L (3.8-4.9) g/dL Albumin/Globulin Ratio 1.24 L (1.60-3.17) Ratio Vitamin B12 2405.0 H (200.0-944.0) pg/mL
--- NOTE | 2023-10-18 13:24 | XR ---
EXAMINATION TYPE: XR chest 1V portable DATE OF EXAM: 10/18/2023 COMPARISON: 10/16/2023 HISTORY: Shortness of breath TECHNIQUE: Frontal and lateral views of the chest are obtained. FINDINGS: Scattered senescent parenchymal changes noted. Hyperinflation compatible with COPD. No evidence for infiltrate. No evidence for atelectasis. Heart size is stable. Mediastinal structures are stable and grossly unremarkable. No evidence for hilar prominence. Degenerative changes dorsal spine. IMPRESSION: 1. No evidence for acute pulmonary disease.
--- NOTE | 2023-10-18 14:12 | CT ---
EXAMINATION TYPE: CT abdomen pelvis wo con DATE OF EXAM: 10/18/2023 COMPARISON: 07/18/2018 HISTORY: Abdominal pain CT DLP: 918.6 mGycm Examination of the solid and hollow viscera is limited given the lack of contrast. FINDINGS: LUNG BASES: No evidence for nodule. Right basilar patchy infiltrate. Correlate for pneumonia. LIVER/GB: There is evidence of hepatic steatosis. Single gallstone is noted. No wall thickening. No s pace-occupying hepatic lesion. PANCREAS: No pancreatic mass identified. No inflammatory process seen. SPLEEN: No evidence for splenomegaly. No intrasplenic lesions seen. ADRENALS: No adrenal nodules identified. No evidence for thickening. KIDNEYS: No evidence for renal mass. No nephrolithiasis. No hydronephrosis. BOWEL: Right hemicolonic wall thickening may reflect nonspecific colitis such as ischemia, inflammato ry and infectious causes. Normal-appearing appendix. Sigmoid diverticulosis without diverticulitis. R emaining colon and small bowel are normal caliber. No evidence of bowel obstruction. No inflammatory process. Lymph nodes: No evidence for adenopathy greater than 1 cm. Abdominal aorta: Atheromatous changes seen. No evidence for aneurysm. Genital organs: No significant abnormality. Other: Trace ascites adjacent to the liver edge. IMPRESSION: 1.Right hemicolonic wall thickening may reflect nonspecific colitis such as ischemia, inflammatory an d infectious causes. Normal-appearing appendix. Sigmoid diverticulosis without diverticulitis. Remain ing colon and small bowel are normal caliber. 2. Correlate for right lower lobe pneumonia.
--- NOTE | 2023-10-18 14:35 | P.PN ---
Subjective Progress Note Date: 10/18/23 Reason for Consult (text): Fluid overload History of present illness: This is a 58-year-old male patient of Dr. Ivanna Houston with past medical history of syncope, hypertension, anxiety, tobacco use and dependence, and alcohol abuse. We have been asked to evaluate the patient for fluid overload. Patient had a recent hospitalization in June of this year at which time he presented with dizziness found to be hyponatremic, flat troponins and acute kidney injury. Patient presented now to the emergency center with complaints of being unsteady on his feet and feeling tired. He denies any chest pain. He states he feels a little dizzy. Patient does have alcohol history and he states that his last intake was 7 to 8 days ago but does state that he has been drinking a lot every day. Specifics are unable to be obtained from the patient. He denies having any nausea or vomiting. No blood in his stools or urine. He denies history of stroke or seizure. He does complain of a cough. Patient is status post magnesium and potassium replacement as well as 1 L of IV fluids. Patient is seen today in the emergency center waiting for a bed on the cardiac stepdown unit. Patient was sleeping and very difficult to awake. EKG: Sinus rhythm with no acute ST changes. Chest x-ray: No acute process Gallbladder ultrasound: Hepatic steatosis. Cholelithiasis. Laboratory studies: WBC 2.9, hemoglobin 11.5, platelet count 103. Initial potassium 2.7. Sodium 131, BUN 8 and creatinine 0.71. Troponin 0.069 and 0.049. proBNP 1750. Magnesium 1.7. Phosphorus 2.1. Total bilirubin 2.3, AST 168, ALT 119, alkaline phosphatase 237. Serum alcohol less than 10. Home cardiac medications: Aspirin 81 mg daily, Lasix 20 mg daily, hydralazine 25 mg 3 times daily, Toprol-XL 25 mg daily, potassium chloride 10 mill equivalents daily. Echocardiogram performed 07/18/2023 revealed LVEF 60%, severely increased septal wall thickness 1.7 cm and basal septal. RVSP 42 mmHg. Event monitor 08/29 - 09/03/2023 revealed primary rhythm sinus with average heart rate 90 bpm, minimal heart rate 72 and maximal heart rate 136. PVC burden 0.51%. Lexiscan Cardiolite stress test performed on 08/28/2023 revealed a negative stress test by EKG criteria. Probably normal myocardial perfusion and function with fixed inferior wall defect secondary to soft tissue attenuation. 10/17 Patient is seen today in follow-up in the cardiac stepdown unit. He states his breathing is okay. He denies having any chest pain. He does complain of cough with yellow sputum production. He also complains of abdominal discomfort. He has got continued lower extremity edema. He has been maintained on IV Lasix 20 mg twice daily. Blood pressure 101/70, heart rate 92, pulse ox 95% on room air. Repeat blood work reveals WBC 3.1, hemoglobin 13.2, platelet count 113. Sodium 128, potassium 3.2 and 2.8. BUN 5 creatinine 0.65. Glucose 229. Liver function test remain elevated. Influenza A, influenza B, RSV and COVID-19 not detected. C. difficile toxin negative. Urine Legionella antigen negative. Physical examination: Gen: This is a 58-year-old male in no acute distress VS: reviewed LUNGS: Clear to auscultation. No wheezes or rhonchi. No intercostal retractions. HEART: Regular rate and rhythm. No murmur. ABDOMEN: Soft No tenderness. EXTREMITIES: Edema lower extremities. No calf tenderness. NEUROLOGICAL: Patient is awake, alert and oriented x3. Assessment: Chronically elevated troponins not indicative of acute ischemia/injury Severe hypokalemia Elevated liver function tests Pancytopenia secondary to EtOH abuse Lower extremity edema secondary to malnutrition, low protein and albumin History of syncope Hypertension Generalized anxiety disorder Tobacco use and dependence Alcohol abuse Plan: Continue patient's home cardiac medications Edema is related to malnutrition, low protein and low albumin. Patient has no acute cardiac issue at this time. He has had a negative cardiac workup in the past. Continue to monitor potassium and magnesium and replace as appropriate IV Lasix 20 mg twice daily for 24 hours and then transition patient to oral in the morning No need to repeat echocardiogram as this was done in June Smoking cessation. Patient will be provided [employer] quit line information at discharge. Cardiology will sign off this case and follow on an as-needed basis. Please reconsult for any new concerns. Patient may follow-up in the office in one to [address] Ivanna Houston. Nurse practitioner note has been reviewed, I agree with documented findings and plan of care. Patient was seen and examined. Objective - Vital Signs Vital signs: Vital Signs Temp 98.1 F 10/18/23 08:21 Pulse 92 10/18/23 11:12 Resp 16 10/18/23 11:12 BP 101/70 10/18/23 11:12 Pulse Ox 95 10/18/23 11:12 FiO2 Intake & Output 10/17/23 10/18/23 10/18/23 18:59 06:59 18:59 Intake Total 318 20 236 Balance 318 20 236 Weight 104.326 kg 104.2 kg Intake: IV 200 20 Invasive Line 1 10 Invasive Line 2 10 Potassium Chloride 10 meq 200 In Water For Injection 1 100ml.bag @ 100 mls/hr IVPB Q1HR BAO Rx#: [id number] Oral 118 236 Other: # Voids 1 1 1 # Bowel Movements 1 2 - Labs CBC & Chem 7: 10/18/23 08:47 10/18/23 11:33 Labs: Abnormal Lab Results - Last 24 Hours (Table) 10/18/23 10/18/23 10/18/23 Range/Units 08:47 08:47 08:47 WBC 3.1 L (3.8-10.6) k/uL RBC 3.87 L (4.30-5.90) m/uL MCV 105.4 H (80.0-100.0) fL Plt Count 113 L (150-450) k/uL Lymphocytes # (Manual) 0.53 L (1.0-4.8) k/uL Sodium 129 L (137-145) mmol/L Potassium 3.2 L (3.5-5.1) mmol/L Chloride 92 L (98-107) mmol/L Carbon Dioxide 39 H (22-30) mmol/L BUN 5 L (9-20) mg/dL Creatinine 0.65 L (0.66-1.25) mg/dL Glucose 229 H (74-99) mg/dL Calcium 7.8 L (8.4-10.2) mg/dL Total Bilirubin 1.4 H (0.2-1.3) mg/dL Delta Bilirubin 1.1 H (0.0-0.2) mg/dL AST 114 H (17-59) U/L ALT 95 H (4-49) U/L Alkaline Phosphatase 184 H (38-126) U/L Total Protein 4.0 L (6.3-8.2) g/dL Albumin 1.9 L (3.5-5.0) g/dL 10/18/23 Range/Units 11:33 WBC (3.8-10.6) k/uL RBC (4.30-5.90) m/uL MCV (80.0-100.0) fL Plt Count (150-450) k/uL Lymphocytes # (Manual) (1.0-4.8) k/uL Sodium (137-145) mmol/L Potassium 2.8 L (3.5-5.1) mmol/L Chloride (98-107) mmol/L Carbon Dioxide (22-30) mmol/L BUN (9-20) mg/dL Creatinine (0.66-1.25) mg/dL Glucose (74-99) mg/dL Calcium (8.4-10.2) mg/dL Total Bilirubin (0.2-1.3) mg/dL Delta Bilirubin (0.0-0.2) mg/dL AST (17-59) U/L ALT (4-49) U/L Alkaline Phosphatase (38-126) U/L Total Protein (6.3-8.2) g/dL Albumin (3.5-5.0) g/dL
[2023-10-18] MEDS: DIPHENOX-ATROP 2.5-0.025 MG 1 EACH TAB PO PRN (18:19)
[2023-10-18 20:11] LABS: Hepatitis A Antibody IgM Nonreactive (Nonreactive); Hepatitis B Core IgM Nonreactive (Nonreactive); Hepatitis B Surface Antigen Nonreactive (Nonreactive); Hepatitis C IgG Antibody Nonreactive (Nonreactive)
[2023-10-18 20:22] LABS: Chol/HDL Ratio 5.38 Ratio; LDL Cholesterol,Calculated 70.3 mg/dL (0.0-131.0)
[2023-10-18 22:21] LABS: Appearance,Urine Clear (Clear); Bilirubin,Urine Negative (Negative); Blood,Urine Negative (Negative); Color,Urine Colorless; Glucose,Urine (UA) 3+ (Negative); Ketones,Urine Negative (Negative); Leukocyte Esterase,Urine Negative (Negative); Nitrite,Urine Negative (Negative); PH, Urine 6.5 (5.0-8.0); Protein,Urine Negative (Negative); Specific Gravity,Urine 1.004 (1.001-1.035); Urobilinogen,Urine <2.0 mg/dL (<2.0)
[2023-10-18 23:33] VITALS: RESP 18
[2023-10-19] MEDS: BENZONATATE 100 MG CAP PO PRN (02:58)
[2023-10-19 08:53] LABS: HCT 43.2 % (39.0-53.0); HGB 13.8 gm/dL (13.0-17.5); MCHC 32.1 g/dL (31.0-37.0); MCV 106.2 fL (80.0-100.0); Macrocytosis Moderate; Mean Platelet Volume 9.8; Platelet Count 160 k/uL (150-450); RBC 4.06 m/uL (4.30-5.90); RDW 13.5 % (11.5-15.5); WBC 3.5 k/uL (3.8-10.6)
[2023-10-19] MEDS: FUROSEMIDE 20 MG TAB PO SCH (09:08)
[2023-10-19] MEDS: AMOXIC-POT CLAV 875-125MG 1 EACH TAB PO SCH ×2 (09:16→11:02)
[2023-10-19 09:22] LABS: ALT 118 U/L (4-49); AST 145 U/L (17-59); African American GFR (CKD) >90 (>60 ml/min/1.73 sqM); Albumin 2.3 g/dL (3.5-5.0); Alkaline Phosphatase 320 U/L (38-126); Blood Urea Nitrogen 5 mg/dL (9-20); Calcium 8.2 mg/dL (8.4-10.2); Chloride 95 mmol/L (98-107); Glucose 181 mg/dL (74-99); Non-African American GFR(CKD) >90 (>60 ml/min/1.73 sqM); Potassium 3.4 mmol/L (3.5-5.1); Sodium 134 mmol/L (137-145); Total Bilirubin 1.6 mg/dL (0.2-1.3); Total Protein 4.7 g/dL (6.3-8.2)
[2023-10-19 09:30] LABS: Anion Gap 1 mmol/L
[2023-10-19 09:59] LABS: Carbon Dioxide 38 mmol/L (22-30)
[2023-10-19] MEDS: POTASSIUM CHLORIDE ER 20 MEQ TAB.ER PO STA (12:08)
--- NOTE | 2023-10-19 13:10 | P.DS ---
Providers Date of admission: 10/16/23 20:29 Expected date of discharge: 10/19/23 Attending physician: Jose E Mejia MD Consults: 10/17/23 01:29 Consult Physician Urgent Consulting Provider: Rufino Orellana Consult Reason/Comments: fluid overload Do you want consulting provider notified?: Yes Primary care physician: [facility] Course: Patient is a 68-year-old male with a PMH of alcohol abuse, COPD, hypertension, who presents to the emergency room with complaints of persistent cough, diarrhea, with nausea and generalized weakness. Patient reports the above sympt oms have been ongoing for the past 3 to 4 weeks. Reports that the cough is nonproductive. Notes having 3-4 loose bowel movements per day over the past several weeks. As a result he has been eating less than usual. During this time he is also noticed bilateral lower extremity pitting edema which is new for him. Denies experiencing chest discomfort, fever, chills, abdominal pain. Gallbladder ultrasound in the emergency room revealed cholelithiasis with hepatic steatosis with chest x-ray showing no acute abnormalities. Laboratory evaluation was remarkable for sodium 131, potassium 2.7, chloride 89, lactic acid 1.2, troponin 0.069, proBNP 1750, AST 168, ALT 119, and alk phos 237, with MCV 104.6. Patient was admitted for further management and workup. Noted to be severely hypokalemic which was replaced on 10/15, 10/16 and 10/17 aggressively. Potassium was 3.4 on 10/18 on the day of discharge. Cardiology consulted for elevated troponin and lower extremity swelling. Troponin 0.069, 0.049, ACS ruled out. Echo showed EF 60-65% with trace pericardial effusion. He was diuresed with Lasix 20 mg IV BID for 10/16 and 10/17 and transitioned to PO Lasix. CT AP ordered to evaluate for SIRS, diarrhea, cough and abdominal discomfort which showed right hemicolonic wall thickening and RLL PNA. C. diff neg. Legionella neg. UA negative. Hep panel negative. He was started on Augmentin. 10/18 Patient was seen and examined. 3 soft bowel movements since yesterday. Reports continued sinus drainage causing cough. BP 110/75 HR 94 this morning. Patient continues to complain of fatigue. Started on Augmentin for treatment of sinusitis and colitis. CT AP seems to show a RLL PNA as well. Patient is saturating well on RA. Cardiology has transitioned the patient to Lasix 20 mg PO BID and recommends no further workup. CBC WBC 3.5, RBC 4.06, MCV 106.2. CMP Na 134, K 3.4, Cl 95, bicarb 38, BUN 5, glu 181, Ca 8.2, T. Bili 1.6, AST 145, ALT 118, alk phos 320, alb 2.3. Plans for discharge home today. Advised to refrain from drinking alcohol. Augmentin for 10 days to treat RLL PNA, sinusitis and colitis. Follow up with PCP within 1-2 days, Cardiology within [address] Houston within 1 week to arrange for C-scope. General: non toxic, no distress, appears at stated age, obese Derm: no unusual rashes/lesions, warm Head: atraumatic, normocephalic, symmetric Eyes: EOMI, no lid lag, anicteric sclera Mouth: no lip lesion, mucus membranes moist Cardiovascular: S1S2 tachy, no murmur, trace edema bilateral LE Lungs: CTA decreased BS, no rhonchi, no rales, no accessory muscle use Abdominal: soft, nontender to palpation, no guarding Ext: muscle strength 5 out of 5 in all 4 extremities grossly, no gross muscle atrophy, no contractures, Neuro: no gross focal neuro deficits Psych: Alert, oriented, appropriate affect Discharge Diagnosis: Cough likely related to post nasal drip from sinusitis and possible RLL PNA seen on CT AP: RSV/COVID/Flu negative. Start Augmentin 1 tab PO BID for 10 days. Diarrhea likely related to colitis: C. diff and Legionella negative. Augmentin as above. Lomotil 1 tab PO Q6H PRN diarrhea. Fluid overload, Echo shows EF 60-65% with mild septal wall thickness: Lasix 20 mg PO BID. Severe hypokalemia: Suspect due to persistent diarrhea and poor oral intake. Potassium 3.4 on discharge. Elevated troponin: May be due to ongoing fluid overload. Patient denying chest discomfort. ACS ruled out. Cardiology recommends no further cardiac workup. Transaminitis likely due to alcohol abuse: Hep panel negative. Lipid panel T. Chol 119, LDL 70.3, HDL 22.1. Macrocytosis: B12 and Folate wnl. Likely from EtOH abuse. Hypochloremic hyponatremia with metabolic alkalosis likely due to above. Chronic conditions: COPD, hypertension, alcohol abuse This complex discharge took 35 minutes to complete. Patient Condition at Discharge: Stable Plan - Discharge Summary Discharge Rx Participant: Yes New Discharge Prescriptions: New Amoxic-Pot Clav 875-125Mg [Augmentin 875-125] 1 each PO Q12HR #20 tab Sucralfate [Carafate] 1 gm PO AC-BID #60 tab Diphenox-Atrop 2.5-0.025 mg [Lomotil] 1 each PO Q6HR PRN #30 tab PRN Reason: Diarrhea Benzonatate [Tessalon Perles] 100 mg PO TID PRN #30 cap PRN Reason: Cough Furosemide [Lasix] 20 mg PO BID@0900,1600 #60 tab Continue Folic Acid 1 mg PO DAILY 30 Days #30 tab Potassium Chloride ER [K-Dur 10] 10 meq PO DAILY 30 Days #30 tab Metoprolol Succinate (ER) [Toprol XL] 25 mg PO DAILY 30 Days #30 tab Thiamine [Vitamin B-1] 100 mg PO DAILY 30 Days #30 tab busPIRone HCL 10 mg PO DAILY Meloxicam [Mobic] 15 mg PO DAILY Escitalopram [Lexapro] 20 mg PO DAILY Omeprazole 40 mg PO DAILY Albuterol Inhaler [Ventolin Hfa Inhaler] 2 puff INHALATION RT-Q4H PRN PRN Reason: Shortness Of Breath traZODone HCL [Desyrel] 200 mg PO HS PRN PRN Reason: sleep LORazepam [Ativan] 1 mg PO DIRECTED PRN PRN Reason: anxiety/before procedures Aspirin 81 mg PO DAILY 30 Days #30 tab Cholecalciferol (Vitamin D3) [Vitamin D3 (50 Mcg = 2000 Iu)] 50 mcg PO DAILY Discontinued hydrALAZINE HCL [Apresoline] 25 mg PO TID Furosemide [Lasix] 20 mg PO DAILY Discharge Medication List Albuterol Inhaler [Ventolin Hfa Inhaler] 2 puff INHALATION RT-Q4H PRN 07/17/23 [History] Escitalopram [Lexapro] 20 mg PO DAILY 07/17/23 [History] Meloxicam [Mobic] 15 mg PO DAILY 07/17/23 [History] Omeprazole 40 mg PO DAILY 07/17/23 [History] busPIRone HCL 10 mg PO DAILY 07/17/23 [History] LORazepam [Ativan] 1 mg PO DIRECTED PRN 07/18/23 [History] traZODone HCL [Desyrel] 200 mg PO HS PRN 07/18/23 [History] Aspirin 81 mg PO DAILY 30 Days #30 tab 07/23/23 [Rx] Folic Acid 1 mg PO DAILY 30 Days #30 tab 07/23/23 [Rx] Metoprolol Succinate (ER) [Toprol XL] 25 mg PO DAILY 30 Days #30 tab 07/23/23 [Rx] Potassium Chloride ER [K-Dur 10] 10 meq PO DAILY 30 Days #30 tab 07/23/23 [Rx] Thiamine [Vitamin B-1] 100 mg PO DAILY 30 Days #30 tab 07/23/23 [Rx] Cholecalciferol (Vitamin D3) [Vitamin D3 (50 Mcg = 2000 Iu)] 50 mcg PO DAILY 10/16/23 [History] Amoxic-Pot Clav 875-125Mg [Augmentin 875-125] 1 each PO Q12HR #20 tab 10/19/23 [Rx] Benzonatate [Tessalon Perles] 100 mg PO TID PRN #30 cap 10/19/23 [Rx] Diphenox-Atrop 2.5-0.025 mg [Lomotil] 1 each PO Q6HR PRN #30 tab 10/19/23 [Rx] Furosemide [Lasix] 20 mg PO BID@0900,1600 #60 tab 10/19/23 [Rx] Sucralfate [Carafate] 1 gm PO AC-BID #60 tab 10/19/23 [Rx] Follow up Appointment(s)/Referral(s): Fritz Mace DO [Primary Care Provider] - 1-2 days Hermelinda Houston MD [STAFF PHYSICIAN] - 1 Week Benito Houston MD [STAFF PHYSICIAN] - 2 Weeks Discharge/Stand Alone Forms: AA Meetings [facility], Who Do I Call?, Outpatient Counseling, In Substance Abuse Facilities Discharge Disposition: HOME SELF-CARE
[2023-10-19 16:06] VITALS: BP 113/79; PULSE 83; TEMP 97.9
== END 2023-10-19 18:29 | disposition home or self-care (01) | DRG 640 ==
LOC: EC 16:02 → 5NMEDONC 20:29 → 3SCARD 21:44
PROVIDERS: ADMIT Internal Medicine; ATTEND Internal Medicine
DX: E87.6 Hypokalemia (principal); J18.9 Pneumonia, unspecified organism; D61.818 Other pancytopenia; E46 Unspecified protein-calorie malnutrition; J44.0 Chronic obstructive pulmonary disease with (acute) lower respiratory infection; N17.9 Acute kidney failure, unspecified; R65.10 Systemic inflammatory response syndrome (SIRS) of non-infectious origin without acute organ dysfunction; E86.0 Dehydration; K52.9 Noninfective gastroenteritis and colitis, unspecified; D75.89 Other specified diseases of blood and blood-forming organs; E87.1 Hypo-osmolality and hyponatremia; E87.3 Alkalosis; E87.70 Fluid overload, unspecified; E87.8 Other disorders of electrolyte and fluid balance, not elsewhere classified; F10.10 Alcohol abuse, uncomplicated; F17.200 Nicotine dependence, unspecified, uncomplicated; F41.1 Generalized anxiety disorder; H91.90 Unspecified hearing loss, unspecified ear; J32.9 Chronic sinusitis, unspecified; I10 Essential (primary) hypertension; K75.9 Inflammatory liver disease, unspecified; K76.0 Fatty (change of) liver, not elsewhere classified; K80.20 Calculus of gallbladder without cholecystitis without obstruction; Z79.1 Long term (current) use of non-steroidal anti-inflammatories (NSAID); Z79.82 Long term (current) use of aspirin; Z79.899 Other long term (current) drug therapy; Z82.49 Family history of ischemic heart disease and other diseases of the circulatory system; Z88.2 Allergy status to sulfonamides; Z88.8 Allergy status to other drugs, medicaments and biological substances; Z68.31 Body mass index [BMI] 31.0-31.9, adult
CPT/HCPCS: 36415; 71045; 71046; 74176; 76705; 80048; 80053; 80061; 80074; 80076; 80320; 81003; 82607; 82747; 83605; 83690; 83735; 83880; 84100; 84132; 84484; 85025; 85027; 85610; 85730; 87040; 87324; 87449; 87636; 93005; 93306; 96361; 96365; 96366; 96367; 96372; 96375; 96376; 99285

== ENCOUNTER 2023-12-13 12:00 | Day surgery (SDC) | payer BC ==
[~2023-12-13 12:00] MED LIST changes: +LACTATED RINGERS 1,000 ML BAG ONE; -SODIUM CHLORIDE 0.9% 1,000 ML IV SCH
[2023-12-13] MEDS ORDERED: PROPOFOL 10 MG/ML 20 ML VIAL IV ONE (12:54)
[2023-12-13] MEDS ORDERED: LIDOCAINE 1% INJ 10MG/ML (20 ML MDV) ONE (12:54)
--- NOTE | 2023-12-20 15:55 | PCN ---
PROCEDURE NOTE REQUESTING PHYSICIAN: Dr. Fritz Mace BRIEF HISTORY: The patient is a 58-year-old pleasant white male, scheduled for an elective colonoscopy as a part of evaluation of chronic diarrhea for the last 6 weeks' duration. He has been having 10 to 15 loose watery bowel movements daily with no blood or mucus in the stool. He is scheduled for a colonoscopy to evaluate further. PROCEDURE PERFORMED: Colonoscopy with snare polypectomy and biopsy. PREOPERATIVE DIAGNOSIS: Chronic diarrhea. ANESTHESIA: IV sedation per Anesthesia. DESCRIPTION OF PROCEDURE: After informed consent was obtained from the patient, he was brought into the endoscopy unit. IV conscious sedation was administered by Anesthesia under continuous monitoring. Initial digital rectal examination was normal. The Olympus CF-190 video colonoscope was then inserted in the rectum and gradually advanced into the cecum. Careful examination was performed as the scope was gradually being withdrawn. The ileocecal valve and appendiceal orifice were visualized and appeared normal. The prep was excellent. In the base of the cecum, there was a 7 mm polyp that was removed by cold snare polypectomy. Ascending colon, transverse colon, descending colon appeared normal. There was scattered sigmoid diverticulosis seen. In the rectum, retroflexion was performed. Grade 2 internal hemorrhoids were noted. Random biopsies were done from the ascending and descending colon to rule out microscopic/collagenous colitis. The patient tolerated the procedure well. IMPRESSION: 1. A 7 mm cecal polyp, status post cold snare polypectomy. 2. Scattered sigmoid diverticulosis. 3. Small internal hemorrhoids. RECOMMENDATIONS: Findings of this examination were discussed with the patient as well as his family. He was advised to follow up with the biopsy results. If the biopsy reveals adenoma, he can have a repeat colonoscopy in 5 years. In the meantime, he will continue with his current medications and he will be seen in the office in 2 weeks. MMODL / IJN: [id number] /
== END 2023-12-13 13:50 ==
LOC: ORWHC2ENDO 12:00
PROVIDERS: ATTEND Internal Medicine Gastroenterology
DX: K63.5 Polyp of colon (principal); K57.30 Diverticulosis of large intestine without perforation or abscess without bleeding; K64.8 Other hemorrhoids; K52.9 Noninfective gastroenteritis and colitis, unspecified; F17.200 Nicotine dependence, unspecified, uncomplicated; Z88.2 Allergy status to sulfonamides; Z88.1 Allergy status to other antibiotic agents; Z79.82 Long term (current) use of aspirin
CPT/HCPCS: 45380; 45385; 88305

== ENCOUNTER → 2024-01-09 | Outpatient (CLI) | payer BC ==
[2024-01-10 02:37] LABS: Basophils # (A) 0.04 X 10*3/uL (0.00-0.10); Basophils % (A) 0.4 %; Eosinophils # (A) 0.15 X 10*3/uL (0.04-0.35); Eosinophils % (A) 1.4 %; HCT 40.3 % (39.6-50.0); HGB 12.9 g/dL (13.0-17.0); Lymphocytes # (A) 1.24 X 10*3/uL (0.90-5.00); Lymphocytes % (A) 11.7 %; MCH 30.7 pg (27.0-32.0); Mean Platelet Volume 10.3 FL (9.5-12.2); Monocytes # (A) 0.93 X 10*3/uL (0.20-1.00); Monocytes % (A) 8.8 %; NRBC Per 100 WBC 0 X 10*3/uL (0.00-0.01); Neutrophils # (A) 8.17 X 10*3/uL (1.80-7.70); Neutrophils % (A) 77.4 %; Platelet Count 353 X 10*3/uL (140-440); RDW 14.9 % (11.5-14.5); WBC 10.56 X 10*3/uL (4.50-10.00)
[2024-01-10 03:08] LABS: ALT 26 U/L (10-49); AST 29 U/L (14-35); Albumin 2.2 g/dL (3.8-4.9); Albumin/Globulin Ratio 0.92 Ratio (1.60-3.17); Alkaline Phosphatase 153 U/L (41-126); BUN/Creat Ratio 7.43 Ratio (12.00-20.00); Blood Urea Nitrogen 5.2 mg/dL (9.0-27.0); Calcium 8.2 mg/dL (8.7-10.3); Carbon Dioxide 26.6 mmol/L (21.6-31.8); Chloride 100 mmol/L (96-109); Globulin 2.4 g/dL (1.6-3.3); Glucose 121 mg/dL (70-110); Potassium 3.8 mmol/L (3.5-5.5); Sodium 135 mmol/L (135-145); Total Bilirubin 0.4 mg/dL (0.3-1.2); Total Protein 4.6 g/dL (6.2-8.2)
[2024-01-10 05:40] LABS: Gliadin AB IgA, Deaminated Negative (Negative); Gliadin AB IgA, Unit 4.1 U/mL; Gliadin AB IgG, Deaminated Negative (Negative); Gliadin AB IgG, Unit <0.4 U/mL
[2024-01-10 07:27] LABS: Cryptosporidium Antigen Negative (Negative)
== END | disposition home or self-care (01) ==
LOC: LABWHC1 13:42
PROVIDERS: ATTEND Nurse Practitioner Family
DX: K52.9 Noninfective gastroenteritis and colitis, unspecified (principal); R74.8 Abnormal levels of other serum enzymes
CPT/HCPCS: 36415; 80053; 83516; 83630; 85025; 87045; 87046; 87328; 87329

== ENCOUNTER → 2024-01-29 | Outpatient (CLI) | payer BC ==
[2024-01-30 02:31] LABS: Basophils # (A) 0.02 X 10*3/uL (0.00-0.10); Basophils % (A) 0.3 %; Eosinophils % (A) 2.5 %; HCT 39.6 % (39.6-50.0); Lymphocytes # (A) 1.23 X 10*3/uL (0.90-5.00); Lymphocytes % (A) 15.6 %; MCH 31.5 pg (27.0-32.0); MCHC 32.8 g/dL (32.0-37.0); MCV 95.9 FL (80.0-97.0); Mean Platelet Volume 10.7 FL (9.5-12.2); Monocytes # (A) 0.81 X 10*3/uL (0.20-1.00); Monocytes % (A) 10.3 %; NRBC Per 100 WBC 0 X 10*3/uL (0.00-0.01); Neutrophils # (A) 5.58 X 10*3/uL (1.80-7.70); Platelet Count 402 X 10*3/uL (140-440); RBC 4.13 X 10*6/uL (4.40-5.60); RDW 15.3 % (11.5-14.5); WBC 7.86 X 10*3/uL (4.50-10.00)
[2024-01-30 03:08] LABS: ALT 21 U/L (10-49); AST 25 U/L (14-35); Albumin 2.2 g/dL (3.8-4.9); Albumin/Globulin Ratio 0.88 Ratio (1.60-3.17); Alkaline Phosphatase 166 U/L (41-126); BUN/Creat Ratio 8.29 Ratio (12.00-20.00); Blood Urea Nitrogen 5.8 mg/dL (9.0-27.0); Calcium 8.3 mg/dL (8.7-10.3); Carbon Dioxide 28.8 mmol/L (21.6-31.8); Chloride 100 mmol/L (96-109); Globulin 2.5 g/dL (1.6-3.3); Glucose 109 mg/dL (70-110); Magnesium 1.9 mg/dL (1.5-2.4); Potassium 4.1 mmol/L (3.5-5.5); Sodium 138 mmol/L (135-145); Total Bilirubin 0.6 mg/dL (0.3-1.2); Total Protein 4.7 g/dL (6.2-8.2)
== END | disposition home or self-care (01) ==
LOC: LABWHC1 14:50
PROVIDERS: ATTEND Family Medicine
DX: E11.8 Type 2 diabetes mellitus with unspecified complications (principal); E66.9 Obesity, unspecified; G62.1 Alcoholic polyneuropathy; E87.6 Hypokalemia; R74.01 Elevation of levels of liver transaminase levels; F10.20 Alcohol dependence, uncomplicated; R29.6 Repeated falls; Z72.0 Tobacco use
CPT/HCPCS: 36415; 80053; 83036; 83735; 85025; 86140

== ENCOUNTER → 2024-03-11 | Outpatient (CLI) | payer BC ==
[2024-03-11 18:35] LABS: INR 1.03 sec (0.93-1.11); Prothrombin Time 11.1 sec (9.9-11.9)
[2024-03-11 19:15] LABS: % Iron Saturation 29.34 (15.00-50.00); ALT 15 U/L (10-49); AST 20 U/L (14-35); Albumin 2.3 g/dL (3.8-4.9); Albumin/Globulin Ratio 0.85 Ratio (1.60-3.17); Alkaline Phosphatase 117 U/L (41-126); BUN/Creat Ratio 9.83 Ratio (12.00-20.00); Blood Urea Nitrogen 5.9 mg/dL (9.0-27.0); Calcium 8.3 mg/dL (8.7-10.3); Chloride 103 mmol/L (96-109); Globulin 2.7 g/dL (1.6-3.3); Glucose 97 mg/dL (70-110); Iron 49 UG/DL (65-175); Potassium 4.1 mmol/L (3.5-5.5); Sodium 137 mmol/L (135-145); Total Bilirubin 0.4 mg/dL (0.3-1.2); Total Iron Binding Capacity 167 UG/DL (228-460)
[2024-03-11 19:50] LABS: Ceruloplasmin 24.3 mg/dL (20.0-60.0)
[2024-03-11 22:11] LABS: Basophils # (A) 0.04 X 10*3/uL (0.00-0.10); Basophils % (A) 0.5 %; Eosinophils # (A) 0.31 X 10*3/uL (0.04-0.35); Eosinophils % (A) 3.7 %; HCT 39.6 % (39.6-50.0); HGB 12.7 g/dL (13.0-17.0); Lymphocytes # (A) 1.43 X 10*3/uL (0.90-5.00); Lymphocytes % (A) 17.2 %; MCHC 32.1 g/dL (32.0-37.0); MCV 99.7 FL (80.0-97.0); Mean Platelet Volume 10.3 FL (9.5-12.2); Monocytes # (A) 0.71 X 10*3/uL (0.20-1.00); Monocytes % (A) 8.6 %; NRBC Per 100 WBC 0 X 10*3/uL (0.00-0.01); Neutrophils # (A) 5.77 X 10*3/uL (1.80-7.70); Neutrophils % (A) 69.6 %; Platelet Count 389 X 10*3/uL (140-440); RBC 3.97 X 10*6/uL (4.40-5.60); RDW 15.3 % (11.5-14.5); WBC 8.29 X 10*3/uL (4.50-10.00)
[2024-03-12 10:18] LABS: Protein, Total 5.2 g/dL (6.2-8.2)
[2024-03-12 10:35] LABS: Smooth Muscle Antibody 10 UNITS (<20)
[2024-03-12 12:05] LABS: Alpha 1 Anti-Trypsin 157 mg/dL (90 - 200)
[2024-03-13 10:56] LABS: Albumin 1.94 g/dL (3.80-4.90); Gamma Globulin 1.28 g/dL (0.70-1.50)
== END | disposition home or self-care (01) ==
LOC: LABWHC1 14:10
PROVIDERS: ATTEND Internal Medicine Gastroenterology
DX: R74.8 Abnormal levels of other serum enzymes (principal); R19.7 Diarrhea, unspecified
CPT/HCPCS: 36415; 80053; 81596; 82103; 82104; 82390; 82728; 83516; 83540; 83550; 84165; 85025; 85610; 86038

== ENCOUNTER → 2024-03-11 | Outpatient (CLI) | payer BC ==
--- NOTE | 2024-03-12 15:47 | MR ---
EXAMINATION TYPE: MR abdomen wo/w con DATE OF EXAM: 03/11/2024 10:13 PM COMPARISON: CT scan abdomen from 10/18/2023. CLINICAL INDICATION: Male, 58 years old with history of R63.4 ABNORMAL WEIGHT LOSS; PHH, Severe weigh t loss, diarrhea TECHNIQUE: Multiplanar multi-sequence imaging was performed without contrast. Post contrast imaging was performed. Post IV contrast subtraction images were also submitted for review. IV Contrast: 9 mL Gadavist FINDINGS: LOWER CHEST: No gross irregularity. ABDOMEN Liver: Minimally nodular contour to liver. Loss of signal of the liver parenchyma on chemical shift o ut of phase imaging. Gallbladder and Bile ducts: No evidence for ductal dilation, or biliary stricture or evidence of chol edocholithiasis. The gallbladder is within normal limits. Pancreas: No ductal dilation. No evidence for solid mass. Spleen: Normal for size. Adrenal glands: Unremarkable. Kidneys: No evidence for obstructive uropathy. No suspicious renal masses. Simple appearing left high T2 signal renal cyst. Stomach and Bowel: Fluid tracks along the gastroesophageal junction. No evidence for bowel wall thick ening or evidence for obstruction. Scattered colonic diverticula present. The cecum wall seen on prio r CT had submucosal fat deposition which can be seen in setting of obesity and chronic inflammation a ted other etiologies. Retroperitoneum/Peritoneum: No evidence of pneumoperitoneum. There is a large amount of free fluid i n the abdomen. Vasculature: No aortic aneurysm. Portal vein is dilated up to 17 mm. Musculoskeletal: The osseous structures appear intact. Lymph Nodes: No gross evidence for lymphadenopathy. Abdominal wall: Unremarkable. IMPRESSION: 1. Limited exam secondary to large amount of volume in respiratory motion. No hepatic mass or lympha denopathy identified. 2. Hepatic steatosis no liver masses definitively visualized. 3. Large ascites unclear etiology this is new from 10/18/2023. There is dilated portal vein suggestin g portal hypertension. Possibly secondary to hepatic steatosis. 4. Cholelithiasis.. 5. Fluid signal near the distal esophagus as seen on 10/18/[address]23 CT. 6. Scattered colonic diverticulosis. [facility], , 03/12/2024 3:44 PM
== END | disposition home or self-care (01) ==
LOC: RADMRIMAIN 21:30
PROVIDERS: ATTEND Internal Medicine Gastroenterology
DX: K76.0 Fatty (change of) liver, not elsewhere classified (principal); K80.20 Calculus of gallbladder without cholecystitis without obstruction; K57.30 Diverticulosis of large intestine without perforation or abscess without bleeding; R63.4 Abnormal weight loss; R19.7 Diarrhea, unspecified; R18.8 Other ascites; N28.1 Cyst of kidney, acquired
CPT/HCPCS: 74183; A9585

== ENCOUNTER → 2024-04-08 | Outpatient (CLI) | payer BC ==
--- NOTE | 2024-04-08 14:06 | CTL ---
EXAMINATION TYPE: CT Low Dose Lung DATE OF EXAM ORDERED: 04/08/2024 COMPARISON: Chest radiograph 10/16/2023 CT abdomen and pelvis 10/18/2023 CLINICAL INDICATION: Male, 58 years old with history of Z72.0 Tobacco use; PHH, personal tobacco use, Lung cancer screening, History of Smoking/tobacco use. TECHNIQUE: Low dose computed tomography scan was performed through the chest at 1 mm thick sections a nd reconstructed images in multiple planes at 1 mm and [address] DLP: [address] CTDI: 1.95 mGy Automated exposure control for dose reduction was used. CT DIAGNOSTIC QUALITY: Satisfactory FINDINGS: Nodules: Punctate calcified granuloma within the right lower lobe. Peripheral right lower lobe 6.3 mm pulmonary nodule abutting the major fissure (series 8, image 42). Medial right lower lobe 2.6 cm pulmonary nodule abutting the heart border (series 9, image 45). LUNGS: COPD: Severity: Mild Fibrosis: Severity: None Lymph nodes: None Other findings: Right lower lobe subsegmental atelectasis. RIGHT PLEURAL SPACE: Effusion: None Calcification: None Thickening: None Pneumothorax: None LEFT PLEURAL SPACE: Effusion: None Calcification: None Thickening: None Pneumothorax: None HEART: Heart Size: Normal Coronary Calcification: None Pericardial Effusion: None OTHER FINDINGS: Upper abdomen: Redemonstration of distal paraesophageal cysts measuring up to 2.0 cm. The liver is di ffusely hypoattenuating. Bony thorax: DISH of the lower thoracic spine. Supraclavicular region: None Other: None IMPRESSION: 1. Couple of pulmonary nodules with a right lower lobe 2.6 cm pulmonary nodule. Further evaluation w ith PET/CT is recommended. 2. Mild COPD changes. 3. Hepatic steatosis. CT LUNG RAD AND CT CHEST RECOMMENDATION: Lung-Rad 4B or 4X Very Suspicious: Follow-up Chest CT with o r without contrast or PET/CT and/or tissue sampling. PET/CT may be used when there is a > 8 mm solid component. S Modifier (other clinically significant findings): None [facility], , 04/08/2024 2:03 PM
== END | disposition home or self-care (01) ==
LOC: RADCTMAIN 12:38
PROVIDERS: ATTEND Student in an Organized Health Care Education/Training Program
DX: Z12.2 Encounter for screening for malignant neoplasm of respiratory organs (principal); J44.9 Chronic obstructive pulmonary disease, unspecified; K76.0 Fatty (change of) liver, not elsewhere classified; R91.8 Other nonspecific abnormal finding of lung field; Z87.891 Personal history of nicotine dependence
CPT/HCPCS: 71271

== ENCOUNTER → 2024-05-21 | Outpatient (CLI) | payer BC ==
--- NOTE | 2024-05-23 08:41 | PE ---
EXAMINATION TYPE: PET CT fusion skull to thigh DATE OF EXAM: 05/21/2024 CLINICAL INDICATION:Male, 58 years old with history of R91.8 LUNG NODULE; TECHNIQUE: Following the intravenous administration of 10.5 mCi of F-18 FDG, whole body images are performed from the skull base to the Mid thigh. Images are reviewed on the computer in the coronal, axial, and sagittal planes. Reconstructed rotating images are created on independent workstation and reviewed on the computer. A non-contrast CT is performed in conjunction with the PET scan. Glucose level 152 mg/dL CT DLP: 764 mGycm, Automated exposure control for dose reduction was used. COMPARISON: CT 04/08/2024, PET/CT None, MRI: 03/11/2024 FINDINGS: Mediastinal SUV mean is 1.8. Hepatic parenchyma SUV mean is 2. SKULL BASE AND NECK: No suspicious radiotracer activity. CHEST, MEDIASTINUM, AND HILAR REGION: Abnormal radiotracer within the right perihilar region max SUV 0.5 measuring 35 x 18 mm Subcarinal lymph node max SUV 10 measuring a 17 mm in short axis. ABDOMEN AND PELVIS: No suspicious radiotracer activity. MUSCULOSKELETAL STRUCTURES: No suspicious radiotracer activity. OTHER CT: Moderate coronary artery atherosclerosis. Opacifications at the carotid bifurcations. Bilat erally aphakia. Mild gynecomastia changes bilaterally. Cholelithiasis. Fat-containing buccal hernia. Colonic diverticulosis. Bilateral fatty changes to the inguinal canals. Prostatomegaly. IMPRESSION: FDG avid right inferior perihilar mass with FDG avid lymph node concerning for primary malignancy wit h metastatic disease. [facility], , 05/23/2024 8:39 AM
== END | disposition home or self-care (01) ==
LOC: RADPETMAIN 12:31
PROVIDERS: ATTEND Internal Medicine
DX: R91.8 Other nonspecific abnormal finding of lung field (principal); K80.20 Calculus of gallbladder without cholecystitis without obstruction; K57.30 Diverticulosis of large intestine without perforation or abscess without bleeding
CPT/HCPCS: 78815; A9552

== ENCOUNTER → 2024-05-28 | Outpatient (CLI) | payer BC ==
--- NOTE | 2024-05-28 10:31 | MR ---
EXAMINATION TYPE: MR brain wo/w con DATE OF EXAM: 05/28/2024 10:00 AM COMPARISON: Correlation PET/CT 05/21/2024 CLINICAL INDICATION: Male, 58 years old with history of C34.90 lung ca, lung cancer, numbness in feet , weakness all over, weight loss. IV Contrast: 8.5 cc Gadobutrol (None if empty) TECHNIQUE: Multiplanar, multisequence images of the brain and brainstem were acquired before and aft er administration of 8.5 mL IV Gadobutrol. Diffusion weighted imaging is performed. FINDINGS: No evidence for acute infarction, hemorrhage, mass, mass effect, midline shift, herniation, effacemen t of basal cisterns, or extra-axial fluid collection. The ventricles and sulci are age-appropriate. Major intracranial flow voids are intact. T2/FLAIR weighted sequences show minimal scattered bright white matter change and subcortical regions of both cerebral hemispheres, possibly 5 on either side. Midline structures demonstrate normal morphology. Normal variant cisterna magna. Otherwise, the crani ocervical junction is normal. Post contrast images demonstrate no evidence of pathologic enhancement. Dural venous sinuses are pat ent. Leftward nasal septal deviation. Moderate mucosal thickening ethmoid air cells. Globes are intact. IMPRESSION: 1. No acute intracranial abnormality seen. No suspicious enhancement to suggest brain metastases. 2. Trace burden of chronic small vessel ischemic disease. 3. Moderate chronic ethmoid sinus disease. Leftward nasal septal deviation. [facility], , 05/28/2024 10:28 AM
== END | disposition home or self-care (01) ==
LOC: RADMRIMAIN 08:39
PROVIDERS: ATTEND Internal Medicine Hematology & Oncology
DX: I67.82 Cerebral ischemia (principal); C34.90 Malignant neoplasm of unspecified part of unspecified bronchus or lung; J32.2 Chronic ethmoidal sinusitis; J34.2 Deviated nasal septum; R06.02 Shortness of breath; J98.4 Other disorders of lung; M12.9 Arthropathy, unspecified
CPT/HCPCS: 70553; A9585

== ENCOUNTER → 2024-06-24 | Outpatient (CLI) | payer BC ==
[2024-06-24 15:11] LABS: Basophils # (A) 0.06 X 10*3/uL (0.00-0.10); Basophils % (A) 0.9 %; Eosinophils # (A) 0.16 X 10*3/uL (0.04-0.35); Eosinophils % (A) 2.5 %; HCT 43.9 % (39.6-50.0); HGB 15.3 g/dL (13.0-17.0); Lymphocytes # (A) 1.18 X 10*3/uL (0.90-5.00); Lymphocytes % (A) 18.3 %; MCH 32.1 pg (27.0-32.0); MCHC 34.9 g/dL (32.0-37.0); Mean Platelet Volume 11.1 FL (9.5-12.2); Monocytes # (A) 0.75 X 10*3/uL (0.20-1.00); Monocytes % (A) 11.6 %; NRBC Per 100 WBC 0 X 10*3/uL (0.00-0.01); Neutrophils # (A) 4.25 X 10*3/uL (1.80-7.70); Neutrophils % (A) 65.9 %; Platelet Count 291 X 10*3/uL (140-440); RBC 4.77 X 10*6/uL (4.40-5.60); WBC 6.45 X 10*3/uL (4.50-10.00)
[2024-06-24 15:28] LABS: ALT 14 U/L (10-49); AST 16 U/L (14-35); Albumin 4.3 g/dL (3.8-4.9); Albumin/Globulin Ratio 1.59 Ratio (1.60-3.17); Alkaline Phosphatase 139 U/L (41-126); BUN/Creat Ratio 16.33 Ratio (12.00-20.00); Blood Urea Nitrogen 14.7 mg/dL (9.0-27.0); Calcium 10.2 mg/dL (8.7-10.3); Carbon Dioxide 27.9 mmol/L (21.6-31.8); Chloride 83 mmol/L (96-109); Globulin 2.7 g/dL (1.6-3.3); Glucose 485 mg/dL (70-110); Magnesium 2.3 mg/dL (1.5-2.4); Potassium 4.9 mmol/L (3.5-5.5); Sodium 126 mmol/L (135-145); Total Bilirubin 0.6 mg/dL (0.3-1.2)
== END | disposition home or self-care (01) ==
LOC: LABWHC1 10:00
PROVIDERS: ATTEND Family Medicine
DX: E11.8 Type 2 diabetes mellitus with unspecified complications (principal); G62.1 Alcoholic polyneuropathy; E87.6 Hypokalemia; E66.9 Obesity, unspecified; F10.20 Alcohol dependence, uncomplicated; R74.01 Elevation of levels of liver transaminase levels; R29.6 Repeated falls; Z72.0 Tobacco use
CPT/HCPCS: 36415; 80053; 83036; 83735; 85025; 86140